=== PATIENT | male | born 1975 | race Caucasian/White ===

== ENCOUNTER 2020-07-19 10:00 | Outpatient (CLI) | payer OTHER ==
--- NOTE | 2020-07-19 12:07 | PET ---
Exam: PET scan with CT attenuation correction HISTORY: Malignant melanoma of the left upper extremity including the shoulder. Secondary malignant n eoplasm of the liver and intrahepatic bile duct. TECHNIQUE: PET scan with CT attenuation correction performed from the skull vertex to the feet follow ing the intravenous administration of 11.5 mCi of [id number]. FINDINGS: Head and neck: There is no abnormal FDG localization in the scalp or neck soft tissue structures. Chest: There is no abnormal FDG localization in the mediastinum, axilla, chest wall soft tissues or l efe parenchyma. CT used for attenuation correction demonstrates a 0.7 cm nodule in the left upper lobe which is not hypermetabolic. The size of the nodule is at the threshold criteria. Currently, the maximum SUV of this nodule is 1.7. There does appear to be scarring and atelectasis in the lung parenchyma. Abdomen and pelvis: There is marked FDG avidity involving the liver. Abnormal FDG localization involv es the caudate lobe, left and right hepatic lobes. Maximum SUV in the caudate lobe is 16.0. Maximum SUV in the left hepatic lobe is 25.3. Maximum SUV in the right hepatic lobe is 23.6. There is a hypermetabolic lymph node in the gastrohepatic ligament, with a maximum SUV of 16.1. Hyper metabolic lymphadenopathy in the periportal region with a maximum SUV of 11.0. There are multiple hypermetabolic mesenteric lymph nodes. There is a left hemiabdomen mesenteric lymph node with a maxim um SUV of 17.3. Additional lymphadenopathy in the mesentery with SUVs between 5.1, 2.2 and 22.10. Osseous structures: There is no abnormal FDG avidity within the bony thorax, bony pelvis or vertebra. However, there is increased FDG avidity which appears to be intrathecal in location and is noted at the level of the S1, S2, S3 vertebral bodies. This FDG avidity is presumed to be intradural. Lumba r puncture for CSF acquisition may be beneficial. Additionally, lumbar spine/sacral MRI may be beneficial. IMPRESSION: Extensive metastases in a patient with known melanoma. There appears to be intrathecal metastases. Findings of the study were conveyed to Dr. Watson via [employer] on 07/19/2020 at 12:04 PM Code CR Transcribed Date/Time: 07/19/2020 1:50 PM
== END 2020-07-19 10:01 | disposition home or self-care (01) ==
LOC: PET 10:00
PROVIDERS: ATTEND Internal Medicine Hematology & Oncology
DX: C43.62 Malignant melanoma of left upper limb, including shoulder (principal); C78.7 Secondary malignant neoplasm of liver and intrahepatic bile duct
CPT/HCPCS: 78816; A9552

== ENCOUNTER 2020-07-31 10:59 | Day surgery (SDC) | payer OTHER ==
[2020-07-31] MEDS ORDERED: Sodium Chloride 0.9% 20 ML ONE (11:07)
[2020-07-31] MEDS ORDERED: Acetaminophen 500 MG TAB PO PRN (11:33)
[2020-07-31] MEDS ORDERED: diphenhydrAMINE 25 MG CAP PO PRN (11:33)
[2020-07-31 14:07] VITALS: BP 102/54; TEMP 98.6
== END 2020-07-31 14:07 | disposition home or self-care (01) ==
LOC: ONC/OP 10:59
PROVIDERS: ATTEND Internal Medicine Hematology & Oncology
PROC: 30233N1 Transfusion of Nonautologous Red Blood Cells into Peripheral Vein, Percutaneous Approach (ICD-10-PCS; principal; 2020-07-31)
DX: D64.9 Anemia, unspecified (principal); D69.6 Thrombocytopenia, unspecified
CPT/HCPCS: 36430; 86850; 86900; 86901; P9016

== ENCOUNTER 2020-08-10 15:31 | Inpatient (IN) | payer OTHER ==
[2020-08-10 16:46] VITALS: BMI 30.9
[2020-08-10] MEDS: Sodium Chloride 0.9% 1,000 ML IV SCH (18:07)
--- NOTE | 2020-08-10 18:33 | CON ---
DATE OF CONSULTATION: 08/10/2020 CONSULTING PHYSICIAN: Bruna Watson MD REASON FOR CONSULT: Possible tumor lysis and acute kidney injury. REASON FOR ADMISSION: Abnormal labs. HISTORY OF PRESENT ILLNESS: This is a 44-year-old male with history of hypertension and hyperlipidemia and melanoma, recently started on chemo, who was sent to the hospital because of worsening labs. The patient had chemo lately and he was found to have elevated creatinine up to 5.56 with a BUN of 79. His uric acid was 18.3, and [facility], but did not get better and he was sent to the hospital. The patient complains of left-sided abdominal pain. Otherwise, he feels okay. No chest pain. No shortness of breath. No nausea or vomiting. He is not making much urine for last few days. PAST MEDICAL HISTORY: Positive for hypertension, hyperlipidemia, melanoma, and GERD. PAST SURGICAL HISTORY: Left axillary lymph node dissection melanoma, left shoulder surgery. HOME MEDICATIONS: Reviewed. ALLERGIES: NO KNOWN DRUG ALLERGIES. SOCIAL HISTORY: History of smoking in the past. No occasional alcohol use. FAMILY HISTORY: Positive for lung cancers. REVIEW OF SYSTEMS: CONSTITUTIONAL: Negative for weight loss or gain, ability to conduct usual activities. SKIN: Negative for rash, itching. EYES: Negative for double vision, pain. ENT/MOUTH: Negative for nose bleeding, neck stiffness, pain, tenderness. CARDIOVASCULAR: Negative for palpitations, dyspnea on exertion, orthopnea. RESPIRATORY: Negative for shortness of breath, wheezing, cough, hemoptysis, fever or night sweats. GASTROINTESTINAL: Negative for poor appetite, abdominal pain, heartburn, nausea, vomiting, constipation, or diarrhea. GENITOURINARY: Negative for urgency, frequency, dysuria, nocturia. MUSCULOSKELETAL: Negative for pain, swelling. NEUROLOGIC/PSYCHIATRIC: Negative for anxiety, depression. ALLERGY/IMMUNOLOGIC: Negative for skin rash, bleeding tendency. PHYSICAL EXAMINATION: GENERAL: Reveals a well-built male, in no apparent distress. VITAL SIGNS: Reviewed. HEENT: Atraumatic, normocephalic. NECK: Supple. CV: S1 and S2 heard. Rate and rhythm are heard. RESPIRATORY: Clear. GASTROINTESTINAL: Abdomen is soft, but distended. MUSCULOSKELETAL: No edema. DERMATOLOGIC: No skin rash. NEUROLOGIC: Alert, awake. PSYCH: Mood and affect normal. LABORATORY DATA: Potassium 5.0, BUN is 79, creatinine is 5.5. ASSESSMENT AND PLAN: 1. Acute kidney injury, most likely secondary to tumor lysis syndrome. Plan is to hydrate him. We will also check a G6PD level and start on rasburicase if available. Agree with renal dose of allopurinol. 2. Hyponatremia. 3. Acidosis. 4. Hypercalcemia. 5. Hyperphosphatemia. 6. Hypoalbuminemia. 7. Possible tumor lysis syndrome. PLAN: To start hydration with Rasburicase and allopurinol and monitor uric acid, potassium, phosphorus, and calcium level and also the LDH level. No acute indication for dialysis, but if no improvement in urine output with worsening of labs is seen, we might have to consider dialysis. The patient is aware of the above plan. We will also check renal ultrasound. Avoid nephrotoxins. Renally dose the medications. We will follow. Thank you for the consult. Job ID: [id number] MTDD
[2020-08-10 20:15] LABS: #Eosinphils 0.1 thou/uL (0.0-0.7); #Lymphocytes 0.5 thou/uL (1.20-3.40); #Monocytes 0.8 thou/uL (0.11-0.59); #Neutrophils 4.7 thou/uL (1.40-6.50); %Basophils 0.2 % (0.0-1.0); %Eosinophils 1.5 % (0.0-10.0); %Lymphocytes 7.4 % (21.0-51.0); %Monocytes 13.9 % (0.0-10.0); %Neutrophils 77.1 % (42.0-75.0); Hemoglobin 7.8 g/dL (14.0-18.0); Mean Corpuscular HGB CONC 32.7 g/dL (32.0-36.0); Mean Corpuscular Hemoglobin 29.7 pg (27.0-31.0); Mean Corpuscular Volume 90.7 fL (78.0-98.0); Mean Platelet Volume 6.9 fL (7.4-10.4); Platelet Count 159 thou/uL (130-400); RBC Distribution Width 15.6 % (11.5-14.5); Red Blood Cell (RBC) Count 2.64 mill/uL (4.70-6.10); White Blood Cell (WBC) Count 6.1 thou/uL (4.8-10.8)
--- NOTE | 2020-08-10 20:33 | ULT ---
Renal sonogram HISTORY: Renal failure. FINDINGS: Right kidney is 10.9 cm length and left is 11.8 cm. Each has a normal appearance without ev idence of mass, stone, or hydronephrosis. Urinary bladder is decompressed. IMPRESSION : No abnormalities are demonstrated.
[2020-08-10] MEDS: Acetaminophen 325 MG TAB PO PRN (21:03)
[2020-08-10] MEDS: Senokot S 8.6-50 MG TAB PO PRN (21:04)
[2020-08-10] MEDS: Heparin 5,000 UNITS/ML VIAL SC SCH (21:04)
--- NOTE | 2020-08-10 21:42 | PDOC.BPN ---
- Brief Progress Note HP dictated
--- NOTE | 2020-08-11 02:20 | HP ---
CHIEF COMPLAINT: Weakness and worsening kidney function. HISTORY OF PRESENT ILLNESS: Mr. Segura is a 44-year-old male with past medical history of melanoma, hypertension, hyperlipidemia, GERD, among others, is being admitted to the hospital as a direct admission from his oncologist's office because of worsening labs, increasing creatinine and tumor lysis syndrome. The patient has been getting aggressive IV hydration lately for increasing creatinine. His blood pressure has been dropping and he got 2 doses of midodrine. Since then, his blood pressure has been in the 110/130s. No syncopal episodes. No dizziness. No fever. No chills. He has some abdominal discomfort. He has been increasing his p.o. fluids and noticed that he has not been voiding as much. Chemistries have been getting worse. Sodium is 132, potassium around 5, BUN is 79, creatinine 5.5 from 3.3, calcium is 7.5, phosphorus is 5.4, uric acid has been increasing more than 17. AST 97, ALT 63, LDH 3242. The patient has tumor lysis syndrome and requiring hospitalization, IV hydration, and possible dialysis. The oncologist started the patient on rasburicase 0.2 mg/kg IV, and advised to continue allopurinol. The patient's oncologist is Dr. Watson. [employer] Supervisor also consulted for a possible hemodialysis and fluid management. The patient is being admitted to the hospital for further management. PAST MEDICAL HISTORY: 1. Hypertension. 2. Hyperlipidemia. 3. GERD. 4. Melanoma. PAST SURGICAL HISTORY: Shoulder surgery. FAMILY HISTORY: A parent had lung cancer. SOCIAL HISTORY: The patient is , has two children. Lives with spouse. Former smoker. He is a social drinker. Denies any illicit drug use. ALLERGIES: NO KNOWN ALLERGIES. REVIEW OF SYSTEMS: Review of 14 systems negative except what is mentioned in history of present illness. PHYSICAL EXAMINATION: GENERAL: The patient is awake, alert, in moderate distress. VITAL SIGNS: Blood pressure is 100/67, pulse is 96, temperature is 97.8, oxygen saturation is 97%. HEAD AND NECK: Normocephalic, atraumatic. NECK: Supple. CHEST: Fair bilateral air entry. HEART: S1, S2. Regular. ABDOMEN: Soft. Mild epigastric tenderness. Bowel sounds present. NEUROLOGIC: Awake, alert. No focal deficits. PSYCHIATRIC: Unable to assess. EXTREMITIES: No clubbing or cyanosis. GENITOURINARY: No suprapubic tenderness. No flank tenderness. LABORATORY DATA: As mentioned above in history of present illness. ASSESSMENT AND PLAN: 1. Tumor lysis syndrome. 2. Acute renal failure. 3. History of hypertension. 4. Hyperlipidemia. 5. GERD. 6. Melanoma. PLAN: 1. Admit. 2. Continue with aggressive IV fluid hydration. 3. Continue with rasburicase. 4. Continue with allopurinol. 5. Monitor electrolytes. 6. [employer] Supervisor consulted for fluid management and possible dialysis. 7. Reconcile home medications. 8. Consult Oncology for followup and further recommendations. 9. DVT prophylaxis as appropriate. 10. Expected length of stay, 2 midnights or more. Job ID: [id number]
[2020-08-11] MEDS ORDERED: Rasburicase 3 MG in Sodium Chloride 0.9% 50 ML IVPB SCH (03:00)
[2020-08-11 03:34] LABS: SARS-CoV-2 MS2 Positive; SARS-CoV-2 N Gene Negative; SARS-CoV-2 S Gene Negative; SARS-CoV-2 by NAA Not Detected (NotDetected); SARS-CoV-2 orf1ab Negative
[2020-08-11 05:40] LABS: Anion Gap 21 mmol/L (10-20); BUN (Urea Nitrogen) 80 mg/dL (8.9-20.6); Calc. Creatinine Clearance 25 mL/min (70-130); Calcium 7.3 mg/dL (7.8-10.44); Carbon Dioxide 15 mmol/L (22-29); Chloride 102 mmol/L (98-107); Glucose 86 mg/dL (70-105); Phosphorus 5.5 mg/dL (2.3-4.7); Potassium 4.6 mmol/L (3.5-5.1); Sodium 133 mmol/L (136-145); Uric Acid 14.4 mg/dL (3.5-7.2)
[2020-08-11] MEDS: Acetaminophen 325 MG TAB PO PRN ×2 (06:04→20:47)
[2020-08-11] MEDS: Sodium Chloride 0.9% 1,000 ML IV SCH ×2 (06:04→12:21)
[2020-08-11] MEDS ORDERED: Zolpidem Tartrate 5 MG TAB PO PRN (08:03)
[2020-08-11] MEDS ORDERED: Enoxaparin Sodium 40 MG/0.4 ML SYRINGE SC SCH (09:00)
[2020-08-11] MEDS ORDERED: Prevnar 13-Val Conj/PF 0.5 ML SYRINGE IM ONE (09:00)
[2020-08-11] MEDS: Allopurinol 100 MG TAB PO SCH (09:10)
[2020-08-11] MEDS: Heparin 5,000 UNITS/ML VIAL SC SCH ×3 (09:10→20:48)
[2020-08-11] MEDS ORDERED: Sodium Bicarbonate 150 MEQ in Dextrose 5% in Water 1,000 ML IV SCH (10:00)
--- NOTE | 2020-08-11 13:22 | CON ---
DATE OF CONSULTATION: REASON FOR CONSULTATION: Melanoma, tumor lysis syndrome. HISTORY OF PRESENT ILLNESS: A 44-year-old male with metastatic melanoma has been admitted to the hospital for treatment of tumor lysis syndrome. The patient was diagnosed with melanoma on his left arm in 2012, which was resected and was stage T3N0. The patient was diagnosed with recurrent melanoma in his liver last month and started treatment with Keytruda on July 20, 2020. At that time, his creatinine was 1.57 and uric acid 8.7. He came in to clinic August 08, for blood work and was found to have a creatinine of 3.48 and a uric acid of 17.5 and LDH 4369, up from 2547. Returned to clinic yesterday for Keytruda, which was held and he was given 3 L of IV fluids and his creatinine was found to be 5.56 with a uric acid of 18.3. Potassium was 5.0 and phosphorus 5.4. He was then directly admitted to the hospital. The patient complains of abdominal discomfort in the right and left abdomen. His right abdominal pain from his liver metastasis is much improved on the current pain regimen and states left abdominal pain just started in the last few days, but is also improved. He only urinated once yesterday after IV hydration, but started urinating more frequently overnight and this morning. He has received 1 dose of rasburicase thus far with improvement in his uric acid. The patient also complains of nausea, vomiting, and vomited once this morning. Denies any other complaints. REVIEW OF SYSTEMS: Ten-point review of systems is negative except as per HPI. PAST MEDICAL HISTORY: 1. Melanoma. 2. Hypertension. 3. Hyperlipidemia. 4. GERD. PAST SURGICAL HISTORY: 1. Shoulder surgery. 2. Melanoma removal. FAMILY HISTORY: Lung cancer. SOCIAL HISTORY: with 2 kids. Former smoker and drinker, but quit when he was diagnosed with liver metastasis. ALLERGIES: NO KNOWN DRUG ALLERGIES. VITAL SIGNS: Temperature 97.8, pulse 87, respirations 19, saturating 98% on room air, blood pressure 103/53. PHYSICAL EXAMINATION: GENERAL APPEARANCE: The patient is sitting up in a chair, in no acute distress. HEENT: Normocephalic and atraumatic. NECK: Supple. RESPIRATIONS: Clear to auscultation bilaterally. CARDIOVASCULAR: S1, S2. Regular rate and rhythm. ABDOMEN: Soft and obese with mild tenderness in the right upper quadrant without any guarding. EXTREMITIES: No edema. NEUROLOGIC: Cranial nerves 2 through 12 are grossly intact. PSYCHIATRIC: Awake, alert, and oriented x3. LABORATORY DATA: White blood cell 6.1, hemoglobin 7.8, platelets 159. Sodium 133, BUN 80, creatinine 5.35, uric acid 14.4, calcium 7.3, phosphorus 5.5. ASSESSMENT AND PLAN: A 44-year-old male with metastatic melanoma to liver, presenting with tumor lysis syndrome and kidney failure. I expect his tumor lysis is mostly spontaneous and not purely treatment related as he only had one dose of Keytruda 3 weeks ago, which does not cause rapid response. He has began urinating again after aggressive hydration and uric acid has slightly improved on [address] Loomis is planning 1 more dose and has also started him on allopurinol, which I advised him to continue after discharge as well. I recommend continuing with one more dose of rasburicase and aggressive IV hydration. We will monitor tumor lysis labs for improvement. The patient can likely resume Keytruda after discharge from the hospital if his kidney function does recover. We will follow along closely with you. Job ID: [id number] [facility]
--- NOTE | 2020-08-11 14:42 | PDOC.HOSPP ---
- Subjective Encounter Date: 08/11/20 Subjective: Patient is doing okay. He has no new complaints today. He reports that he has started voiding again. - Objective Vital Signs & Weight: Vital Signs (12 hours) Temp Pulse Resp BP Pulse Ox 08/11/20 11:25 97.7 F 82 19 95/53 L 98 08/11/20 09:00 97.8 F 87 19 103/53 L 98 08/11/20 04:00 98.2 F 83 16 98/54 L 98 Weight Weight 221 lb 14.4 oz Result Diagrams: 08/10/20 20:03 08/11/20 04:26 Hospitalist ROS - Medication Medications: Active Medications Generic Name Dose Route Start Last Admin Trade Name Freq PRN Reason Stop Dose Admin Acetaminophen 650 mg 08/10/20 18:53 08/11/20 06:04 Acetaminophen 325 Mg Tab PO 650 mg Q6H PRN Administration Headache/Fever/Mild Pain (1-3) Allopurinol 200 mg 08/11/20 09:00 08/11/20 09:10 Allopurinol 100 Mg Tab PO 200 mg DAILY TIEN Administration Heparin Sodium (Porcine) 5,000 units 08/10/20 21:00 08/11/20 09:10 Heparin 5,000 Units/Ml Vial SC 5,000 units TID TIEN Administration Rasburicase 3 mg/ Sodium 50 mls @ 100 mls/hr 08/11/20 03:00 08/11/20 03:31 Chloride IVPB 08/12/20 03:29 50 mls 0300 TIEN Administration Sodium Bicarbonate 150 meq/ 1,150 mls @ 100 mls/hr 08/11/20 10:00 08/11/20 12:19 Dextrose/Water IV 08/11/20 21:29 1,150 mls ONE TIEN Administration Pantoprazole Sodium 40 mg 08/11/20 09:00 08/11/20 09:09 Pantoprazole 40 Mg Tab PO 40 mg DAILY TIEN Administration Senna/Docusate Sodium 2 tab 08/10/20 18:53 08/10/20 21:04 Senokot S 8.6-50 Mg Tab PO 2 tab BIDPRN PRN Administration Constipation - Exam General Appearance: NAD, awake alert Heart: RRR, no murmur, no gallops, no rubs, normal peripheral pulses Respiratory: CTAB, no wheezes, no rales, no ronchi, normal chest expansion, no tachypnea, normal percussion Gastrointestinal: soft, non-tender, non-distended, normal bowel sounds, no palpable masses, no hepatomegaly, no splenomegaly, no bruit Extremities: no cyanosis, no clubbing, no edema Skin: normal turgor Neurological: no focal deficits Musculoskeletal: normal tone, normal strength Psychiatric: normal affect, normal behavior, A&O x 3 Hosp A/P (1) Tumor lysis syndrome Code(s): E88.3 - TUMOR LYSIS SYNDROME Status: Acute (2) Acute renal failure Status: Acute (3) Melanoma Code(s): C43.9 - MALIGNANT MELANOMA OF SKIN, UNSPECIFIED Status: Acute (4) Liver metastases Code(s): C78.7 - SECONDARY MALIG NEOPLASM OF LIVER AND INTRAHEPATIC BILE DUCT Status: Acute (5) Lung metastases Code(s): C78.00 - SECONDARY MALIGNANT NEOPLASM OF UNSPECIFIED LUNG Status: Acute (6) Portal vein thrombosis Code(s): I81 - PORTAL VEIN THROMBOSIS Status: Acute (7) GERD (gastroesophageal reflux disease) Code(s): K21.9 - GASTRO-ESOPHAGEAL REFLUX DISEASE WITHOUT ESOPHAGITIS Status: Chronic (8) Hyperlipidemia Code(s): E78.5 - HYPERLIPIDEMIA, UNSPECIFIED Status: Chronic - Plan Patient is a 44-year-old male known to me from prior admission at the [facility]. At that time the patient had abdominal pain with imaging revealing liver and lung masses. Biopsy confirmed melanoma. He has subsequently been following with oncology. He is started on chemotherapy. He had follow-up labs which showed worsening renal function and tumor lysis syndrome. Contemporaneous with this the patient became somewhat oliguric. He has been admitted to the hospital for hydration and treatment of tumor lysis syndrome. Tumor lysis syndrome: Patient has received Elitek and allopurinol. He is also received aggressive hydration. Numbers are slightly better. Oncology and nephrology following. Acute renal failure: Secondary to tumor lysis syndrome. Continue aggressive hydration. Nephrology following. No indication for dialysis yet. Patient was oliguric but that appears to be resolving. Melanoma: Metastatic to liver and lungs. Original tumor was in his left shoulder area. Oncology following. He will likely resume Keytruda on discharge if his renal function recovers. Hyperlipidemia: Continue statin. Portal vein thrombosis: Found on imaging at the previous admission. Somewhat of an equivocal finding. Chronic at this point. GERD: Pantoprazole DVT prophylaxis: Heparin
--- NOTE | 2020-08-11 17:01 | PRG ---
DATE OF SERVICE: 08/11/2020 SUBJECTIVE: Patient was seen and examined at bedside and overnight events noted. Patient denies any shortness of breath or chest pain or palpitation. No history of nausea or vomiting or diarrhea or fever or chills or cramps. OBJECTIVE: GENERAL: This is a well-built male, in no apparent distress. VITAL SIGNS: Temperature 97.9. Heart rate 82. Respiratory rate 16. Blood pressure 96/54. HEENT: Atraumatic, normocephalic. Oral mucosa is moist. NECK: Supple. CARDIOVASCULAR: S1, S2 heard. Rate and rhythm regular. RESPIRATORY: Clear to auscultation. GASTROINTESTINAL: Abdomen is soft. MUSCULOSKELETAL: No tenderness. No edema. DERMATOLOGIC: No skin rash. NEUROLOGIC: Alert and awake and oriented x3. No focal neurologic deficits. Moving all the extremities. PSYCHIATRIC: Mood and affect normal. LABORATORY DATA: Potassium 4.6, BUN is 80, and creatinine is 5.34. ASSESSMENT AND PLAN: 1. Acute kidney injury. This is most likely secondary to tumor lysis syndrome. This seems to be slightly better. He got a dose of rasburicase and also on allopurinol. Plan is to recheck labs in the morning and we will give second dose of rasburicase. Per hospital policy, he can only have 3 mg dose and only two doses during hospitalization. 2. Hyponatremia. 3. Acidosis. 4. Hypercalcemia. 5. Hyperphosphatemia. 6. Hypoalbuminemia. 7. Tumor lysis syndrome. 8. History of melanoma, on chemotherapy. Plan is to monitor labs and decide on rasburicase. The patient reports improved urine output, which is encouraging. Job ID: [id number]
[2020-08-11] MEDS: HYDROcodone/Acetaminophen 5/325 mg Tablet PO PRN (17:02)
[2020-08-11] MEDS: Atorvastatin Calcium 10 MG TAB PO SCH (20:47)
[2020-08-12] MEDS: HYDROcodone/Acetaminophen 5/325 mg Tablet PO PRN ×3 (00:15→20:26)
[2020-08-12] MEDS ORDERED: Calcium Carbonate 500 MG ChewTAB PO PRN (01:26)
[2020-08-12] MEDS ORDERED: Calcium Carbonate 500 MG ChewTAB PO SCH (01:30)
[2020-08-12] MEDS ORDERED: Simethicone Chewable 80 MG TAB PO SCH ×3 (01:30→02:45)
[2020-08-12] MEDS ORDERED: Rasburicase 3 MG in Sodium Chloride 0.9% 50 ML IVPB SCH (03:00)
[2020-08-12 04:53] LABS: Anion Gap 17 mmol/L (10-20); BUN (Urea Nitrogen) 68 mg/dL (8.9-20.6); Calc. Creatinine Clearance 30 mL/min (70-130); Calcium 7.1 mg/dL (7.8-10.44); Carbon Dioxide 20 mmol/L (22-29); Chloride 102 mmol/L (98-107); Glucose 90 mg/dL (70-105); Phosphorus 3.9 mg/dL (2.3-4.7); Potassium 4.1 mmol/L (3.5-5.1); Sodium 135 mmol/L (136-145)
[2020-08-12] MEDS: Allopurinol 100 MG TAB PO SCH (08:43)
[2020-08-12] MEDS: Heparin 5,000 UNITS/ML VIAL SC SCH ×2 (08:43→20:27)
[2020-08-12 10:15] LABS: #Eosinphils 0.1 thou/uL (0.0-0.7); #Lymphocytes 0.4 thou/uL (1.20-3.40); #Monocytes 0.5 thou/uL (0.11-0.59); #Neutrophils 2.9 thou/uL (1.40-6.50); %Basophils 0.9 % (0.0-1.0); %Lymphocytes 9.1 % (21.0-51.0); %Monocytes 13.5 % (0.0-10.0); %Neutrophils 74.6 % (42.0-75.0); Hemoglobin 6.8 g/dL (14.0-18.0); Mean Corpuscular HGB CONC 32.9 g/dL (32.0-36.0); Mean Corpuscular Hemoglobin 29.8 pg (27.0-31.0); Mean Corpuscular Volume 90.5 fL (78.0-98.0); Mean Platelet Volume 7.1 fL (7.4-10.4); Platelet Count 184 thou/uL (130-400); RBC Distribution Width 15.8 % (11.5-14.5); Red Blood Cell (RBC) Count 2.27 mill/uL (4.70-6.10); White Blood Cell (WBC) Count 3.9 thou/uL (4.8-10.8)
[2020-08-12] MEDS ORDERED: Sodium Chloride 0.9% 1,000 ML IV SCH (11:00)
--- NOTE | 2020-08-12 11:36 | PDOC.MOPN ---
Interval History: Pt feeling more tired today. Still with abdominal pain, c/o constipation and gas. New ankle pain. Still urinating well. - Vital Signs Vital Signs: Vital Signs (12 hours) Temp Pulse Resp BP BP Pulse Ox 08/12/20 10:42 98 F 78 30 H 104/55 L 95 08/12/20 08:00 96 08/12/20 07:38 98.3 F 93 20 115/57 L 96 08/12/20 03:19 98.6 F 82 17 92/54 L 95 Weight Weight 22 lb 6.4 oz - Physical Exam General: Alert, Oriented x3, Cooperative HEENT: EOMI Lungs: Normal air movement Cardiovascular: Regular rate Neurological: Cranial nerves 3-12 NL - Labs Result Diagrams: 08/12/20 09:43 08/12/20 04:13 Lab results: Laboratory Results - last 24 hr 08/12/20 09:43: WBC 3.9 L, RBC 2.27 L, Hgb 6.8 L, Hct 20.6 L, MCV 90.5, MCH 29.8, MCHC 32.9, RDW 15.8 H, Plt Count 184, MPV 7.1 L, Neutrophils % 74.6, Lymphocytes % 9.1 L, Monocytes % 13.5 H, Eosinophils % 2.0, Basophils % 0.9, Neutrophils # 2.9, Lymphocytes # 0.4 L, Monocytes # 0.5, Eosinophils # 0.1, Basophils # 0.0 08/12/20 04:13: Sodium 135 L, Potassium 4.1, Chloride 102, Carbon Dioxide 20 L, Anion Gap 17, BUN 68 H, Creatinine 4.33 H, Estimated GFR (MDRD) 15, Glucose 90, Uric Acid 6.0, Calcium 7.1 L, Phosphorus 3.9 A/P - Problem (1) Melanoma Current Visit: Yes Code(s): C43.9 - MALIGNANT MELANOMA OF SKIN, UNSPECIFIED Status: Acute (2) Tumor lysis syndrome Current Visit: Yes Code(s): E88.3 - TUMOR LYSIS SYNDROME Status: Acute - Plan Plan: Uric acid now normal, Creatinine improving slowly Cont IVF Transfuse 1 unit PRBC today Laxative prn
[2020-08-12] MEDS: Sodium Chloride 0.9% 1,000 ML IV SCH ×2 (11:38→23:43)
[2020-08-12] MEDS: Senokot S 8.6-50 MG TAB PO PRN (11:42)
[2020-08-12] MEDS ORDERED: diphenhydrAMINE 12.5 MG/5 ML UDCUP PO SCH (11:45)
[2020-08-12] MEDS ORDERED: Acetaminophen 500 MG TAB PO SCH (11:45)
[2020-08-12] MEDS ORDERED: Polyethylene Glycol 3350 17 GM Packet PO PRN (12:14)
[2020-08-12] MEDS: Morphine 2 MG/ML VIAL SLOW IVP PRN ×2 (13:10→23:34)
[2020-08-12] MEDS: Ondansetron PF 4 MG/2 ML Vial IVP PRN (13:11)
--- NOTE | 2020-08-12 14:37 | PDOC.HOSPP ---
- Subjective Encounter Date: 08/12/20 Subjective: Did not sleep as well last night. Voiding a little bit less today but still voiding. Has some left upper quadrant abdominal pain. After my visit nurse reported he was having some nausea as well. - Objective Vital Signs & Weight: Vital Signs (12 hours) Temp Pulse Resp BP BP Pulse Ox 08/12/20 10:42 98 F 78 30 H 104/55 L 95 08/12/20 08:00 96 08/12/20 07:38 98.3 F 93 20 115/57 L 96 08/12/20 03:19 98.6 F 82 17 92/54 L 95 Weight Weight 22 lb 6.4 oz I&O: 08/11/20 08/12/20 08/13/20 06:59 06:59 06:59 Intake Total 3210 Balance 3210 Result Diagrams: 08/12/20 09:43 08/12/20 04:13 Hospitalist ROS - Medication Medications: Active Medications Generic Name Dose Route Start Last Admin Trade Name Freq PRN Reason Stop Dose Admin Acetaminophen 650 mg 08/10/20 18:53 08/11/20 20:47 Acetaminophen 325 Mg Tab PO 650 mg Q6H PRN Administration Headache/Fever/Mild Pain (1-3) Acetaminophen 1,000 mg 08/12/20 11:45 08/12/20 13:49 Acetaminophen 500 Mg Tab PO 08/12/20 23:00 1,000 mg NOW TIEN Administration Hydrocodone Bitart/Acetaminophen 1 tab 08/11/20 12:00 08/12/20 08:56 Hydrocodone/Acetaminophen 5/325 Mg Tablet PO 1 tab Q6H PRN Administration Moderate to Severe Pain (6-10) Allopurinol 200 mg 08/11/20 09:00 08/12/20 08:43 Allopurinol 100 Mg Tab PO 200 mg DAILY TIEN Administration Atorvastatin Calcium 10 mg 08/11/20 21:00 08/11/20 20:47 Atorvastatin Calcium 10 Mg Tab PO 10 mg HS TIEN Administration Diphenhydramine HCl 50 mg 08/12/20 11:45 08/12/20 13:49 Diphenhydramine 12.5 Mg/5 Ml Udcup PO 08/12/20 23:00 50 mg NOW TIEN Administration Sodium Chloride 1,000 mls @ 100 mls/hr 08/12/20 11:34 08/12/20 11:38 Normal Saline 0.9% IV 1,000 mls .Q10H TIEN Administration Morphine Sulfate 2 mg 08/12/20 12:14 08/12/20 13:10 Morphine 2 Mg/Ml Vial SLOW IVP 2 mg Q4H PRN Administration Moderate to Severe Pain (6-10) Ondansetron HCl 4 mg 08/12/20 12:39 08/12/20 13:11 Ondansetron Pf 4 Mg/2 Ml Vial IVP 4 mg Q6H PRN Administration Nausea/Vomiting Pantoprazole Sodium 40 mg 08/11/20 09:00 08/12/20 08:43 Pantoprazole 40 Mg Tab PO 40 mg DAILY TIEN Administration Polyethylene Glycol 17 gm 08/12/20 12:14 08/12/20 13:10 Polyethylene Glycol 3350 17 Gm Packet PO 17 gm DAILYPRN PRN Administration Constipation Senna/Docusate Sodium 2 tab 08/10/20 18:53 08/12/20 11:42 Senokot S 8.6-50 Mg Tab PO 2 tab BIDPRN PRN Administration Constipation - Exam General Appearance: NAD, awake alert General - other findings: Appears slightly fatigued. Heart: RRR, no murmur, no gallops, no rubs, normal peripheral pulses Respiratory: CTAB, no wheezes, no rales, no ronchi, normal chest expansion, no tachypnea, normal percussion Gastrointestinal: soft, non-tender, non-distended, normal bowel sounds, no palpable masses, no hepatomegaly, no splenomegaly, no bruit Extremities: no cyanosis, no clubbing, no edema Skin: normal turgor Neurological: no focal deficits Musculoskeletal: normal tone, normal strength, no muscle wasting Psychiatric: normal affect, normal behavior, A&O x 3 Hosp A/P (1) Tumor lysis syndrome Code(s): E88.3 - TUMOR LYSIS SYNDROME Status: Acute (2) Acute renal failure Status: Acute (3) Melanoma Code(s): C43.9 - MALIGNANT MELANOMA OF SKIN, UNSPECIFIED Status: Acute (4) Liver metastases Code(s): C78.7 - SECONDARY MALIG NEOPLASM OF LIVER AND INTRAHEPATIC BILE DUCT Status: Acute (5) Lung metastases Code(s): C78.00 - SECONDARY MALIGNANT NEOPLASM OF UNSPECIFIED LUNG Status: A cute (6) Portal vein thrombosis Code(s): I81 - PORTAL VEIN THROMBOSIS Status: Acute (7) GERD (gastroesophageal reflux disease) Code(s): K21.9 - GASTRO-ESOPHAGEAL REFLUX DISEASE WITHOUT ESOPHAGITIS Status: Chronic (8) Hyperlipidemia Code(s): E78.5 - HYPERLIPIDEMIA, UNSPECIFIED Status: Chronic (9) Abdominal pain Code(s): R10.9 - UNSPECIFIED ABDOMINAL PAIN Status: Acute (10) Nausea & vomiting Code(s): R11.2 - NAUSEA WITH VOMITING, UNSPECIFIED Status: Acute - Plan Patient is a 44-year-old male known to me from prior admission at the [facility]. At that time the patient had abdominal pain with imaging revealing liver and lung masses. Biopsy confirmed melanoma. He has subsequently been following with oncology. He is started on chemotherapy. He had follow-up labs which showed worsening renal function and tumor lysis syndrome. Contemporaneous with this the patient became somewhat oliguric. He has been admitted to the hospital for hydration and treatment of tumor lysis syndrome. Tumor lysis syndrome: Patient has received Elitek and allopurinol. He is also received aggressive hydration. Numbers are slightly better. Oncology and nephrology following. Acute renal failure: Secondary to tumor lysis syndrome. Continue aggressive hydration. Nephrology following. No indication for dialysis yet. Patient was oliguric but that appears to be resolving. Continue aggressive IV fluids. Ultrasound on admission showed no evidence of stones or hydronephrosis. Melanoma: Metastatic to liver and intra-abdominal lymph nodes. Original tumor was in his left shoulder area. Oncology following. He will likely resume Keytruda on discharge if his renal function recovers. Abdominal pain, nausea vomiting: CT scan of the abdomen and pelvis without contrast. Morphine as needed. Zofran as needed. Hyperlipidemia: Continue statin. Portal vein thrombosis: Found on imaging at the previous admission. Somewhat of an equivocal finding. Chronic at this point. GERD: Pantoprazole DVT prophylaxis: Heparin
--- NOTE | 2020-08-12 16:18 | PRG ---
DATE OF SERVICE: 08/12/2020 SUBJECTIVE: Patient was seen and examined at bedside and overnight events noted. Patient denies any shortness of breath or chest pain or palpitation. No history of nausea or vomiting or diarrhea or fever or chills or cramps. OBJECTIVE: General: This is a well-built male, in no apparent distress. Vital Signs: Temperature 97.0. Heart Rate 78. Respiratory rate 18. Blood pressure 115/57. HEENT: Atraumatic, normocephalic. Oral mucosa is moist. Neck: Supple. Cardiovascular: S1, S2 heard. Rate and rhythm regular. Respiratory: Clear to auscultation. Gastrointestinal: Abdomen is soft. Musculoskeletal: No tenderness. No edema. Dermatologic: No skin rash. Neurologic: Alert and awake and oriented x3. No focal neurologic deficits. Moving all the extremities. Psychiatric: Mood and affect normal. LABORATORY DATA: Potassium 4.1, BUN is 68, creatinine is 4.3, uric acid is 6.0, calcium 7.1, phosphorus 3.9. ASSESSMENT AND PLAN: 1. Acute kidney injury on chronic kidney disease stage 3. Renal function with improvement in creatinine down to 4.3. Uric acid level is also better. 2. Tumor lysis syndrome at one dose of rasburicase and uric acid level is down to 6. We will hold the next dose. 3. Hypoalbuminemia. 4. Hyperphosphatemia. 5. Hypocalcemia. 6. History of melanoma. The patient still complaining of abdominal pain. Would recommend CT scan of the abdomen without contrast with Dr. Suarez. Otherwise, continue IV fluids and monitor renal function. Job ID: [id number]
--- NOTE | 2020-08-12 17:59 | CT ---
CT abdomen and pelvis noncontrast HISTORY: Abdominal pain. Nausea vomiting. Renal failure. Melanoma with metastases. COMPARISON: 07/01/2020. FINDINGS: IV contrast was withheld due to renal failure. Oral contrast was administered. No evidence of bowel obstruction. The lung bases are clear. Left liver lobe is expanded with an ill-defined low density mass that exten ds into the right liver lobe. Margins are not well delineated on the noncontrast study, although there is favored to be significant increase in size since the previous exam. Hyperdensity is now seen at the gallbladder lumen and may represent biliary sludge or a stone. Stranding is present within the fat around the left liver lobe and adjacent to the right colon. Exten sive widespread adenopathy throughout the abdomen, especially at the central mesentery, has progressed since the prior study. The largest nodes are now at the peripancreatic level 6.0 cm and th e right central mesentery 3.8 cm. Urinary bladder is unremarkable. IMPRESSION : No evidence of bowel obstruction. Significant interval enlargement of metastatic intra-abdominal lymph nodes and liver metastases. Stra nding within the intra-abdominal fat favored to represent carcinomatosis. Evidence of worsening metastatic disease.
[2020-08-12] MEDS: Atorvastatin Calcium 10 MG TAB PO SCH (20:27)
[2020-08-13 04:49] LABS: #Eosinphils 0.1 thou/uL (0.0-0.7); #Lymphocytes 0.4 thou/uL (1.20-3.40); #Monocytes 0.5 thou/uL (0.11-0.59); #Neutrophils 3.9 thou/uL (1.40-6.50); %Basophils 0.2 % (0.0-1.0); %Eosinophils 1.1 % (0.0-10.0); %Monocytes 10.7 % (0.0-10.0); Hemoglobin 8.1 g/dL (14.0-18.0); Mean Corpuscular Hemoglobin 28.7 pg (27.0-31.0); Mean Corpuscular Volume 89.7 fL (78.0-98.0); Mean Platelet Volume 6.4 fL (7.4-10.4); Platelet Count 188 thou/uL (130-400); RBC Distribution Width 15.4 % (11.5-14.5); Red Blood Cell (RBC) Count 2.81 mill/uL (4.70-6.10); White Blood Cell (WBC) Count 4.8 thou/uL (4.8-10.8)
[2020-08-13 04:57] LABS: Reticulocyte Count 1.5 % (0.5-1.5)
[2020-08-13 05:14] LABS: ALT (SGPT) 40 U/L (8-55); AST (SGOT) 68 U/L (5-34); Albumin 2.5 g/dL (3.5-5.0); Alkaline Phosphatase 428 U/L (40-110); Anion Gap 16 mmol/L (10-20); BUN (Urea Nitrogen) 45 mg/dL (8.9-20.6); Bilirubin, Total 0.7 mg/dL (0.2-1.2); Calc. Creatinine Clearance 5 mL/min (70-130); Calcium 7.4 mg/dL (7.8-10.44); Carbon Dioxide 21 mmol/L (22-29); Chloride 104 mmol/L (98-107); Globulin 2.6 g/dL (2.4-3.5); Glucose 92 mg/dL (70-105); Phosphorus 2.7 mg/dL (2.3-4.7); Protein, Total 5.1 g/dL (6.0-8.3); Sodium 137 mmol/L (136-145); Uric Acid 3.4 mg/dL (3.5-7.2)
[2020-08-13] MEDS: Ondansetron PF 4 MG/2 ML Vial IVP PRN ×2 (05:45→11:39)
--- NOTE | 2020-08-13 08:32 | PRG ---
DATE OF SERVICE: 08/13/2020 SUBJECTIVE: A 44-year-old male, being seen for acute kidney injury. The patient denied nausea, vomiting, or chest pain. PHYSICAL EXAMINATION: General: The patient is awake and alert. Vital Signs: Afebrile, pulse 75, breathing at 16, blood pressure 110/56. HEENT: Head normocephalic and atraumatic. Eyes intact, no ulcers. Nose intact, no ulcers. Ears intact, no ulcers. Neck: Supple. No JVD. Chest: Symmetrical and clear. Cardiovascular: Shows S1 and S2, no rub, no murmur. Gastrointestinal: Abdomen is soft, bowel sounds positive. Extremities: Show no edema or ulcers. Skin: Shows no rash or petechiae. Musculoskeletal: Shows no joint swelling or stiffness. Genitourinary: Shows no Hand or CVA tenderness. Neurologic: Motor intact. Cranial nerves intact. LABORATORY DATA: Labs show hemoglobin 8.1, creatinine 2.5. ASSESSMENT AND PLAN: 1. Acute kidney injury, improved. 2. Hypertension, stable. 3. Anemia, stable. 4. Chronic kidney disease stage 4, stable. No indication for dialysis. Continue hydration. Job ID: [id number]
[2020-08-13] MEDS: Allopurinol 100 MG TAB PO SCH (08:40)
[2020-08-13] MEDS: Heparin 5,000 UNITS/ML VIAL SC SCH ×2 (08:40→19:38)
[2020-08-13] MEDS: Sodium Chloride 0.9% 1,000 ML IV SCH ×2 (08:42→22:53)
[2020-08-13] MEDS: Morphine 2 MG/ML VIAL SLOW IVP PRN ×2 (09:12→15:22)
[2020-08-13] MEDS: Morphine 4 MG/ML VIAL SLOW IVP PRN ×2 (11:38→19:43)
[2020-08-13 12:12] LABS: G-6-PD,Quant 259 (127-427)
--- NOTE | 2020-08-13 15:02 | PDOC.MOPN ---
Interval History: c/o abdominal pain, occ nausea - Vital Signs Vital Signs: Vital Signs (12 hours) Temp Pulse Resp BP BP Pulse Ox 08/13/20 11:33 98.5 F 87 20 118/60 97 08/13/20 08:33 98.6 F 97 21 H 112/63 97 08/13/20 03:49 98.6 F 85 110/56 L 95 Weight Weight 222 lb 6.4 oz - Physical Exam General: Alert, Mild distress Lungs: Clear to auscultation Cardiovascular: Regular rate Abdomen: Normal bowel sounds Neurological: Normal speech Psych/Mental Status: Mental status NL - Labs Result Diagrams: 08/13/20 04:36 08/13/20 04:36 Lab results: Laboratory Results - last 24 hr 08/13/20 04:36: Retic Count 1.5, Immature Retic Fraction 0.477 H 08/13/20 04:36: WBC 4.8, RBC 2.81 L, Hgb 8.1 L, Hct 25.2 L, MCV 89.7, MCH 28.7, MCHC 32.0, RDW 15.4 H, Plt Count 188, MPV 6.4 L, Neutrophils % 80.0 H, Lymphocytes % 8.0 L, Monocytes % 10.7 H, Eosinophils % 1.1, Basophils % 0.2, Neutrophils # 3.9, Lymphocytes # 0.4 L, Monocytes # 0.5, Eosinophils # 0.1, Basophils # 0.0 08/13/20 04:36: Lactate Dehydrogenase 1712 H 08/13/20 04:36: Sodium 137, Potassium 4.0, Chloride 104, Carbon Dioxide 21 L, Anion Gap 16, BUN 45 H, Creatinine 2.58 H, Estimated GFR (MDRD) 27, Glucose 92, Uric Acid 3.4 L, Calcium 7.4 L, Phosphorus 2.7, Total Bilirubin 0.7, AST 68 H, ALT 40, Alkaline Phosphatase 428 H, Serum Total Protein 5.1 L, Albumin 2.5 L, Globulin 2.6, Albumin/Globulin Ratio 1.0 L 08/12/20 12:05: Crossmatch See Detail 08/10/20 17:31: G6PD 259, RBC G6PD 2.70 L Status: lab reviewed by me A/P - Problem (1) Abdominal pain Current Visit: Yes Code(s): R10.9 - UNSPECIFIED ABDOMINAL PAIN Status: Acute (2) Melanoma Current Visit: Yes Code(s): C43.9 - MALIGNANT MELANOMA OF SKIN, UNSPECIFIED Status: Acute (3) Tumor lysis syndrome Current Visit: Yes Code(s): E88.3 - TUMOR LYSIS SYNDROME Status: Acute - Plan Plan: CT scan showed worsening metastatic disease TLS - Uric acid normal, Creatinine improving slowly Cont IVF Resume home med MS Contin 30 mg BID Laxative prn antiemetic prn
--- NOTE | 2020-08-13 16:24 | PDOC.HOSPP ---
- Subjective Encounter Date: 08/13/20 Subjective: Patient was reporting lower abdominal pain. Says he feels like he needs to vomit acid at times. He seems to be working hard to accomplish that feeling that it will make him better somehow. - Objective Vital Signs & Weight: Vital Signs (12 hours) Temp Pulse Resp BP BP Pulse Ox 08/13/20 11:33 98.5 F 87 20 118/60 97 08/13/20 08:33 98.6 F 97 21 H 112/63 97 Weight Weight 222 lb 6.4 oz I&O: 08/12/20 08/13/20 08/14/20 06:59 06:59 06:59 Intake Total 3210 4885 Output Total 3 Balance 3210 0380 Result Diagrams: 08/13/20 04:36 08/13/20 04:36 Hospitalist ROS - Medication Medications: Active Medications Generic Name Dose Route Start Last Admin Trade Name Freq PRN Reason Stop Dose Admin Acetaminophen 650 mg 08/10/20 18:53 08/11/20 20:47 Acetaminophen 325 Mg Tab PO 650 mg Q6H PRN Administration Headache/Fever/Mild Pain (1-3) Hydrocodone Bitart/Acetaminophen 1 tab 08/11/20 12:00 08/12/20 20:26 Hydrocodone/Acetaminophen 5/325 Mg Tablet PO 1 tab Q6H PRN Administration Moderate to Severe Pain (6-10) Allopurinol 200 mg 08/11/20 09:00 08/13/20 08:40 Allopurinol 100 Mg Tab PO 200 mg DAILY TIEN Administration Atorvastatin Calcium 10 mg 08/11/20 21:00 08/12/20 20:27 Atorvastatin Calcium 10 Mg Tab PO 10 mg HS TIEN Administration Heparin Sodium (Porcine) 5,000 units 08/12/20 21:00 08/13/20 08:40 Heparin 5,000 Units/Ml Vial SC 5,000 units BID TIEN Administration Sodium Chloride 1,000 mls @ 100 mls/hr 08/12/20 11:34 08/13/20 08:42 Normal Saline 0.9% IV 1,000 mls .Q10H TIEN Administration Morphine Sulfate 4 mg 08/13/20 08:54 08/13/20 11:38 Morphine 4 Mg/Ml Vial SLOW IVP 4 mg Q4H PRN Administration Moderate to Severe Pain (6-10) Morphine Sulfate 2 mg 08/13/20 08:54 08/13/20 15:22 Morphine 2 Mg/Ml Vial SLOW IVP 2 mg Q4H PRN Administration Mild-Moderate Pain (1-5) Ondansetron HCl 4 mg 08/12/20 12:39 08/13/20 11:39 Ondansetron Pf 4 Mg/2 Ml Vial IVP 4 mg Q6H PRN Administration Nausea/Vomiting Pantoprazole Sodium 40 mg 08/11/20 09:00 08/13/20 08:40 Pantoprazole 40 Mg Tab PO 40 mg DAILY TIEN Administration Polyethylene Glycol 17 gm 08/12/20 12:14 08/12/20 13:10 Polyethylene Glycol 3350 17 Gm Packet PO 17 gm DAILYPRN PRN Administration Constipation Senna/Docusate Sodium 2 tab 08/10/20 18:53 08/12/20 11:42 Senokot S 8.6-50 Mg Tab PO 2 tab BIDPRN PRN Administration Constipation Sodium Chloride 10 ml 08/13/20 09:00 08/13/20 09:12 Flush - Normal Saline 10 Ml Syringe IVF 10 ml Q12HR TIEN Administration - Exam General Appearance: ill appearing Heart: RRR, no murmur, no gallops, no rubs, normal peripheral pulses Respiratory: CTAB, no wheezes, no rales, no ronchi, normal chest expansion, no tachypnea, normal percussion Gastrointestinal: soft, non-distended, normal bowel sounds, no palpable masses, tender to palpation (Lower abdomen) Extremities: no cyanosis, no clubbing, no edema Skin: normal turgor Neurological: no focal deficits Musculoskeletal: normal tone, generalized weakness Musculoskeletal - other findings: Some clear weight loss from my evaluation of him in July Hosp A/P (1) Tumor lysis syndrome Code(s): E88.3 - TUMOR LYSIS SYNDROME Status: Acute (2) Acute renal failure Status: Acute (3) Melanoma Code(s): C43.9 - MALIGNANT MELANOMA OF SKIN, UNSPECIFIED Status: Acute (4) Liver metastases Code(s): C78.7 - SECONDARY MALIG NEOPLASM OF LIVER AND INTRAHEPATIC BILE DUCT Status: Acute (5) Lung metastases Code(s): C78.00 - SECONDARY MALIGNANT NEOPLASM OF UNSPECIFIED LUNG Status: Acute (6) Portal vein thrombosis Code(s): I81 - PORTAL VEIN THROMBOSIS Status: Acute (7) GERD (gastroesophageal reflux disease) Code(s): K21.9 - GASTRO-ESOPHAGEAL REFLUX DISEASE WITHOUT ESOPHAGITIS Status: Chronic (8) Hyperlipidemia Code(s): E78.5 - HYPERLIPIDEMIA, UNSPECIFIED Status: Chronic (9) Abdominal pain Code(s): R10.9 - UNSPECIFIED ABDOMINAL PAIN Status: Acute (10) Nausea & vomiting Code(s): R11.2 - NAUSEA WITH VOMITING, UNSPECIFIED Status: Acute - Plan Patient is a 44-year-old male known to me from prior admission at the [facility]. At that time the patient had abdominal pain with imaging revealing liver and lung masses. Biopsy confirmed melanoma. He has subsequently been following with oncology. He is started on chemotherapy. He had follow-up labs which showed worsening renal function and tumor lysis syndrome. Contemporaneous with this the patient became somewhat oliguric. He has been admitted to the hospital for hydration and treatment of tumor lysis syndrome. Tumor lysis syndrome: Patient has received Elitek and allopurinol. He is also received aggressive hydration. Numbers improved daily. Oncology and nephrology following. Acute renal failure: Secondary to tumor lysis syndrome. Continue aggressive hydration. Nephrology following. No indication for dialysis. Patient was oliguric but that appears to be resolving. Continue aggressive IV fluids. Ultrasound on admission showed no evidence of stones or hydronephrosis. Melanoma: Metastatic to liver and intra-abdominal lymph nodes. Original tumor was in his left shoulder area. Repeat CT scan here to evaluate his abdominal pain shows worsening metastatic disease and possible carcinomatosis. Oncology following. He will likely resume Keytruda on discharge if his renal function recovers. Abdominal pain, nausea vomiting: CT scan of the abdomen and pelvis without contrast showed worsening metastatic disease with carcinomatosis but no other specific source of abdominal pain. Discussed with oncology. The patient was actually on MS Contin 30 twice daily at home. Somehow this was not on his medication list here. Being resumed now. IV morphine as needed. Zofran as needed. Hyperlipidemia: Continue statin. Portal vein thrombosis: Found on imaging at the previous admission. Somewhat of an equivocal finding. Chronic at this point. GERD: Pantoprazole DVT prophylaxis: Heparin
[2020-08-13] MEDS: Atorvastatin Calcium 10 MG TAB PO SCH (19:38)
[2020-08-13] MEDS: Morphine ER 30 MG TAB PO SCH (19:38)
[2020-08-14] MEDS: Ondansetron PF 4 MG/2 ML Vial IVP PRN ×3 (02:02→17:00)
[2020-08-14] MEDS: Morphine 4 MG/ML VIAL SLOW IVP PRN ×2 (02:02→20:41)
[2020-08-14] MEDS: Sodium Chloride 0.9% 1,000 ML IV SCH ×3 (02:03→20:50)
[2020-08-14 05:18] LABS: Anion Gap 12 mmol/L (10-20); BUN (Urea Nitrogen) 29 mg/dL (8.9-20.6); Calc. Creatinine Clearance 82 mL/min (70-130); Calcium 7.3 mg/dL (7.8-10.44); Carbon Dioxide 23 mmol/L (22-29); Chloride 106 mmol/L (98-107); Glucose 90 mg/dL (70-105); Potassium 4.1 mmol/L (3.5-5.1); Sodium 137 mmol/L (136-145); Uric Acid 2.9 mg/dL (3.5-7.2)
[2020-08-14] MEDS: Allopurinol 100 MG TAB PO SCH (08:29)
[2020-08-14] MEDS: Morphine ER 30 MG TAB PO SCH ×2 (08:29→20:44)
[2020-08-14] MEDS: Heparin 5,000 UNITS/ML VIAL SC SCH ×2 (08:30→20:42)
--- NOTE | 2020-08-14 11:31 | PRG ---
DATE OF SERVICE: 08/14/2020 SUBJECTIVE: A 44-year-old gentleman, being seen for acute kidney injury. The patient denied nausea, vomiting, or chest pain. PHYSICAL EXAMINATION: General: The patient is awake and alert. Vital Signs: Afebrile, pulse 75, breathing at 16, blood pressure 122/63. HEENT: Head normocephalic and atraumatic. Eyes intact, no ulcers. Nose intact, no ulcers. Ears intact, no ulcers. Neck: Supple. No JVD. Chest: Symmetrical and clear. Cardiovascular: Shows S1 and S2, no rub, no murmur. Gastrointestinal: Abdomen is soft, bowel sounds positive. Extremities: Show no edema or ulcers. Skin: Shows no rash or petechiae. Musculoskeletal: Shows no joint swelling or stiffness. Genitourinary: Shows no Hand or CVA tenderness. Neurologic: Motor intact. Cranial nerves intact. LABORATORY DATA: Reviewed. ASSESSMENT AND RECOMMENDATIONS: 1. Chronic kidney disease, stage 3, improved. 2. Acute kidney injury, improved. 3. Hypertension, stable. 4. Anemia, stable. 5. Metabolic acidosis, improved. 6. No indication for dialysis. Job ID: [id number]
[2020-08-14] MEDS: Morphine 2 MG/ML VIAL SLOW IVP PRN ×2 (12:02→15:47)
--- NOTE | 2020-08-14 16:10 | PDOC.MOPN ---
Interval History: patient feels much better. Nausea and acid resolved. pain controlled with ms contin - Vital Signs Vital Signs: Vital Signs (12 hours) Temp Pulse Resp BP BP Pulse Ox 08/14/20 15:10 98.5 F 79 20 113/58 L 98 08/14/20 11:55 97.6 F 81 20 115/57 L 97 08/14/20 08:29 96 08/14/20 07:50 98.4 F 80 24 H 128/63 96 08/14/20 04:15 98.1 F 85 18 106/55 L 94 L Weight Weight 222 lb 6.4 oz - Physical Exam General: Alert HEENT: Atraumatic, PERRLA, EOMI, Mucous membr. moist/pink Lungs: Clear to auscultation, Normal air movement Cardiovascular: Regular rate, Normal S1, Normal S2, No murmurs, Gallops, Rubs Abdomen: Normal bowel sounds, Soft, No tenderness, No hepatospenomegaly, No masses Neurological: Normal gait, Normal speech, Strength at 5/5 X4 ext, Normal tone, Sensation intact, Cranial nerves 3-12 NL, Reflexes 2+ - Labs Result Diagrams: 08/13/20 04:36 08/14/20 04:25 Lab results: Laboratory Results - last 24 hr 08/14/20 04:25: Sodium 137, Potassium 4.1, Chloride 106, Carbon Dioxide 23, Anion Gap 12, BUN 29 H, Creatinine 1.61 H, Estimated GFR (MDRD) 46, Glucose 90, Uric Acid 2.9 L, Calcium 7.3 L, Phosphorus 3.0 Status: lab reviewed by me A/P - Problem (1) Abdominal pain Current Visit: Yes Code(s): R10.9 - UNSPECIFIED ABDOMINAL PAIN Status: Acute (2) Melanoma Current Visit: Yes Code(s): C43.9 - MALIGNANT MELANOMA OF SKIN, UNSPECIFIED Status: Acute (3) Tumor lysis syndrome Current Visit: Yes Code(s): E88.3 - TUMOR LYSIS SYNDROME Status: Acute - Plan Plan: 1. creatinine improving, continue IVF 2. pain controlled. continue ms contin 3. TLS appears to have resolved 4. home when ok with Nephrology
[2020-08-14] MEDS: Senokot S 8.6-50 MG TAB PO PRN (17:07)
--- NOTE | 2020-08-14 17:44 | PDOC.HOSPP ---
- Subjective Encounter Date: 08/14/20 Subjective: Feeling better. His pain is much improved. He had an episode of vomiting last night during which he produced some bilious emesis. Subsequent to that his abdominal pain has been better. He has been taking some liquids today. - Objective Vital Signs & Weight: Vital Signs (12 hours) Temp Pulse Resp BP BP Pulse Ox 08/14/20 16:35 98.5 F 80 20 120/62 99 08/14/20 15:10 98.5 F 79 20 113/58 L 98 08/14/20 11:55 97.6 F 81 20 115/57 L 97 08/14/20 08:29 96 08/14/20 07:50 98.4 F 80 24 H 128/63 96 Weight Weight 222 lb 6.4 oz I&O: 08/13/20 08/14/20 08/15/20 06:59 06:59 06:59 Intake Total 4890 3590 Output Total 3 300 Balance 4887 3290 Result Diagrams: 08/13/20 04:36 08/14/20 04:25 Hospitalist ROS - Medication Medications: Active Medications Generic Name Dose Route Start Last Admin Trade Name Freq PRN Reason Stop Dose Admin Acetaminophen 650 mg 08/10/20 18:53 08/11/20 20:47 Acetaminophen 325 Mg Tab PO 650 mg Q6H PRN Administration Headache/Fever/Mild Pain (1-3) Hydrocodone Bitart/Acetaminophen 1 tab 08/11/20 12:00 08/12/20 20:26 Hydrocodone/Acetaminophen 5/325 Mg Tablet PO 1 tab Q6H PRN Administration Moderate to Severe Pain (6-10) Allopurinol 200 mg 08/11/20 09:00 08/14/20 08:29 Allopurinol 100 Mg Tab PO 200 mg DAILY TIEN Administration Atorvastatin Calcium 10 mg 08/11/20 21:00 08/13/20 19:38 Atorvastatin Calcium 10 Mg Tab PO 10 mg HS TIEN Administration Heparin Sodium (Porcine) 5,000 units 08/12/20 21:00 08/14/20 08:30 Heparin 5,000 Units/Ml Vial SC 5,000 units BID TIEN Administration Sodium Chloride 1,000 mls @ 100 mls/hr 08/12/20 11:34 08/14/20 08:26 Normal Saline 0.9% IV 1,000 mls .Q10H TIEN Administration Morphine Sulfate 4 mg 08/13/20 08:54 08/14/20 02:02 Morphine 4 Mg/Ml Vial SLOW IVP 4 mg Q4H PRN Administration Moderate to Severe Pain (6-10) Morphine Sulfate 2 mg 08/13/20 08:54 08/14/20 15:47 Morphine 2 Mg/Ml Vial SLOW IVP 2 mg Q4H PRN Administration Mild-Moderate Pain (1-5) Morphine Sulfate 30 mg 08/13/20 21:00 08/14/20 08:29 Morphine Er 30 Mg Tab PO 30 mg Q12HR TIEN Administration Ondansetron HCl 4 mg 08/12/20 12:39 08/14/20 17:00 Ondansetron Pf 4 Mg/2 Ml Vial IVP 4 mg Q6H PRN Administration Nausea/Vomiting Pantoprazole Sodium 40 mg 08/11/20 09:00 08/14/20 08:30 Pantoprazole 40 Mg Tab PO 40 mg DAILY TIEN Administration Polyethylene Glycol 17 gm 08/12/20 12:14 08/12/20 13:10 Polyethylene Glycol 3350 17 Gm Packet PO 17 gm DAILYPRN PRN Administration Constipation Senna/Docusate Sodium 2 tab 08/10/20 18:53 08/14/20 17:07 Senokot S 8.6-50 Mg Tab PO 2 tab BIDPRN PRN Administration Constipation Sodium Chloride 10 ml 08/13/20 09:00 08/14/20 00:32 Flush - Normal Saline 10 Ml Syringe IVF 10 ml Q12HR TIEN Administration Zolpidem Tartrate 5 mg 08/11/20 08:03 08/13/20 19:38 Zolpidem Tartrate 5 Mg Tab PO 5 mg HS PRN Administration Insomnia - Exam General Appearance: NAD, awake alert Heart: RRR, no murmur, no gallops, no rubs, normal peripheral pulses Respiratory: CTAB, no wheezes, no rales, no ronchi, normal chest expansion, no tachypnea, normal percussion Gastrointestinal: soft, non-tender, non-distended, normal bowel sounds, no palpable masses, no hepatomegaly, no splenomegaly, no bruit Extremities: no cyanosis, no clubbing, no edema Skin: normal turgor Neurological: no focal deficits Musculoskeletal: normal tone, normal strength, no muscle wasting Psychiatric: normal affect, normal behavior, A&O x 3 Hosp A/P (1) Tumor lysis syndrome Code(s): E88.3 - TUMOR LYSIS SYNDROME Status: Acute (2) Acute renal failure Status: Acute (3) Melanoma Code(s): C43.9 - MALIGNANT MELANOMA OF SKIN, UNSPECIFIED Status: Acute (4) Liver metastases Code(s): C78.7 - SECONDARY MALIG NEOPLASM OF LIVER AND INTRAHEPATIC BILE DUCT Status: Acute (5) Lung metastases Code(s): C78.00 - SECONDARY MALIGNANT NEOPLASM OF UNSPECIFIED LUNG Status: Acute (6) Portal vein thrombosis Code(s): I81 - PORTAL VEIN THROMBOSIS Status: Acute (7) GERD (gastroesophageal reflux disease) Code(s): K21.9 - GASTRO-ESOPHAGEAL REFLUX DISEASE WITHOUT ESOPHAGITIS Status: Chronic (8) Hyperlipidemia Code(s): E78.5 - HYPERLIPIDEMIA, UNSPECIFIED Status: Chronic (9) Abdominal pain Code(s): R10.9 - UNSPECIFIED ABDOMINAL PAIN Status: Acute (10) Nausea & vomiting Code(s): R11.2 - NAUSEA WITH VOMITING, UNSPECIFIED Status: Acute - Plan Patient is a 44-year-old male known to me from prior admission at the [facility]. At that time the patient had abdominal pain with imaging revealing liver and lung masses. Biopsy confirmed melanoma. He has subsequently been following with oncology. He is started on chemotherapy. He had follow-up labs which showed worsening renal function and tumor lysis syndrome. Contemporaneous with this the patient became somewhat oliguric. He has been admitted to the hospital for hydration and treatment of tumor lysis syndrome. Tumor lysis syndrome: Patient has received Elitek and allopurinol. He is also received aggressive hydration. Numbers improved daily. Creatinine and uric acid are both substantially better. Oncology and nephrology following. Unclear that this was in any way related to his treatment or if it was simply autoinfarction. Acute renal failure: Secondary to tumor lysis syndrome. Continue aggressive hydration. Nephrology following. No indication for dialysis. Patient was oliguric but that appears to be resolved. GFR much improved. Continue aggressive IV fluids. Ultrasound on admission showed no evidence of stones or hydronephrosis. Melanoma: Metastatic to liver and intra-abdominal lymph nodes. Original tumor was in his left shoulder area. Repeat CT scan here to evaluate his abdominal pain shows worsening metastatic disease and possible carcinomatosis. Oncology following. He will likely resume Keytruda on discharge if his renal function recovers. Abdominal pain, nausea vomiting: CT scan of the abdomen and pelvis without contrast showed worsening metastatic disease with carcinomatosis but no other specific source of abdominal pain. Discussed with oncology. The patient was actually on MS Contin 30 twice daily at home. Somehow this was not on his medication list here. Being resumed now. IV morphine as needed. Zofran as needed. Hyperlipidemia: Continue statin. Portal vein thrombosis: Found on imaging at the previous admission. Somewhat of an equivocal finding. Chronic at this point. GERD: Pantoprazole DVT prophylaxis: Heparin Disposition: Patient is taking p.o.'s well on 08/14/2020. If he can continue to adequately hydrate and his pain remains well controlled he can likely discharge on 08/15/2020 if okay with nephrology.
[2020-08-14] MEDS: Atorvastatin Calcium 10 MG TAB PO SCH (20:41)
[2020-08-14] MEDS: Acetaminophen 325 MG TAB PO PRN (20:43)
[2020-08-15] MEDS: Morphine 4 MG/ML VIAL SLOW IVP PRN ×2 (02:41→17:34)
[2020-08-15 04:00] LABS: Anion Gap 14 mmol/L (10-20); BUN (Urea Nitrogen) 21 mg/dL (8.9-20.6); Calc. Creatinine Clearance 108 mL/min (70-130); Carbon Dioxide 20 mmol/L (22-29); Chloride 106 mmol/L (98-107); Glucose 80 mg/dL (70-105); Phosphorus 2.4 mg/dL (2.3-4.7); Sodium 136 mmol/L (136-145); Uric Acid 2.9 mg/dL (3.5-7.2)
[2020-08-15] MEDS: Morphine ER 30 MG TAB PO SCH ×2 (09:15→21:08)
[2020-08-15] MEDS: Allopurinol 100 MG TAB PO SCH (09:15)
[2020-08-15] MEDS: Heparin 5,000 UNITS/ML VIAL SC SCH ×2 (09:16→21:08)
[2020-08-15] MEDS: Sodium Chloride 0.9% 1,000 ML IV SCH ×2 (09:22→17:37)
[2020-08-15] MEDS: HYDROcodone/Acetaminophen 5/325 mg Tablet PO PRN (20:04)
[2020-08-15] MEDS: Atorvastatin Calcium 10 MG TAB PO SCH (21:08)
--- NOTE | 2020-08-15 22:22 | PDOC.HOSPP ---
- Subjective Encounter Date: 08/15/20 Encounter Time: 15:00 Subjective: Patient seen and examined. Denies any new complaints. Abdominal pain improving. Denies any new episode of vomiting. Feels bloated. - Objective Vital Signs & Weight: Vital Signs (12 hours) Temp Pulse Resp BP BP Pulse Ox 08/15/20 19:16 100.3 F H 90 16 109/54 L 96 08/15/20 16:00 99.0 F 85 18 119/66 97 08/15/20 12:00 99.1 F 82 18 116/64 96 Weight Weight 222 lb 6.4 oz I&O: 08/14/20 08/15/20 08/16/20 06:59 06:59 06:59 Intake Total 3590 620 690 Output Total 300 390 Balance 3290 620 300 Result Diagrams: 08/13/20 04:36 08/16/20 04:13 Additional Labs: Abnormal Lab Results - Last 48 hrs 08/15/20 03:25: Carbon Dioxide 20 L, BUN 21 H, Uric Acid 2.9 L, Calcium 7.0 L 08/16/20 04:13: Carbon Dioxide 19 L, Uric Acid 3.1 L, Calcium 7.2 L Radiology Reviewed by me: Yes (CT abdomen reviewed) Hospitalist ROS - Review of Systems Constitutional: reports: weakness. denies: fever, chills, sweats, malaise, other Cardiovascular: denies: chest pain, palpitations, orthopnea, paroxysmal noc. dyspnea, edema, light headedness, other - Medication Medications: Active Medications Generic Name Dose Route Start Last Admin Trade Name Freq PRN Reason Stop Dose Admin Acetaminophen 650 mg 08/10/20 18:53 08/14/20 20:43 Acetaminophen 325 Mg Tab PO 650 mg Q6H PRN Administration Headache/Fever/Mild Pain (1-3) Hydrocodone Bitart/Acetaminophen 1 tab 08/11/20 12:00 08/15/20 20:04 Hydrocodone/Acetaminophen 5/325 Mg Tablet PO 1 tab Q6H PRN Administration Moderate to Severe Pain (6-10) Allopurinol 200 mg 08/11/20 09:00 08/15/20 09:15 Allopurinol 100 Mg Tab PO 200 mg DAILY TIEN Administration Atorvastatin Calcium 10 mg 08/11/20 21:00 08/15/20 21:08 Atorvastatin Calcium 10 Mg Tab PO 10 mg HS TIEN Administration Heparin Sodium (Porcine) 5,000 units 08/12/20 21:00 08/15/20 21:08 Heparin 5,000 Units/Ml Vial SC 5,000 units BID TIEN Administration Sodium Chloride 1,000 mls @ 100 mls/hr 08/12/20 11:34 08/15/20 17:37 Normal Saline 0.9% IV 1,000 mls .Q10H TIEN Administration Morphine Sulfate 4 mg 08/13/20 08:54 08/15/20 17:34 Morphine 4 Mg/Ml Vial SLOW IVP 4 mg Q4H PRN Administration Moderate to Severe Pain (6-10) Morphine Sulfate 2 mg 08/13/20 08:54 08/14/20 15:47 Morphine 2 Mg/Ml Vial SLOW IVP 2 mg Q4H PRN Administration Mild-Moderate Pain (1-5) Morphine Sulfate 30 mg 08/13/20 21:00 08/15/20 21:08 Morphine Er 30 Mg Tab PO 30 mg Q12HR TIEN Administration Ondansetron HCl 4 mg 08/12/20 12:39 08/14/20 17:00 Ondansetron Pf 4 Mg/2 Ml Vial IVP 4 mg Q6H PRN Administration Nausea/Vomiting Pantoprazole Sodium 40 mg 08/11/20 09:00 08/15/20 09:15 Pantoprazole 40 Mg Tab PO 40 mg DAILY TIEN Administration Polyethylene Glycol 17 gm 08/12/20 12:14 08/12/20 13:10 Polyethylene Glycol 3350 17 Gm Packet PO 17 gm DAILYPRN PRN Administration Constipation Senna/Docusate Sodium 2 tab 08/10/20 18:53 08/14/20 17:07 Senokot S 8.6-50 Mg Tab PO 2 tab BIDPRN PRN Administration Constipation Sodium Chloride 10 ml 08/13/20 09:00 08/15/20 21:09 Flush - Normal Saline 10 Ml Syringe IVF 10 ml Q12HR TIEN Administration Zolpidem Tartrate 5 mg 08/11/20 08:03 08/13/20 19:38 Zolpidem Tartrate 5 Mg Tab PO 5 mg HS PRN Administration Insomnia - Exam General Appearance: ill appearing Neck: supple, no JVD Heart: RRR, no gallops Respiratory: no wheezes, no ronchi Gastrointestinal: soft, no guarding, no rigidity Extremities: no cyanosis, no clubbing Hosp A/P - Plan DVT proph w/SCDs HARPER on CKD stage IIimproving Tumor lysis syndrome GERD Hypertension Hyperlipidemia Melanoma Plan: Creatinine 1.2 today. We will continue current pain regimen with IV fluids. Continue current pain regimen. Advised patient to discontinue NSAIDs. Continue MS Contin. Continue PPIs. Recheck labs in a.m. DC in a.m. if okay with consultants
[2020-08-16] MEDS: Morphine 4 MG/ML VIAL SLOW IVP PRN ×4 (00:48→18:10)
[2020-08-16 05:08] LABS: Anion Gap 15 mmol/L (10-20); BUN (Urea Nitrogen) 17 mg/dL (8.9-20.6); Calc. Creatinine Clearance 133 mL/min (70-130); Calcium 7.2 mg/dL (7.8-10.44); Carbon Dioxide 19 mmol/L (22-29); Chloride 106 mmol/L (98-107); Glucose 75 mg/dL (70-105); Potassium 4.1 mmol/L (3.5-5.1); Sodium 136 mmol/L (136-145); Uric Acid 3.1 mg/dL (3.5-7.2)
[2020-08-16] MEDS: Sodium Chloride 0.9% 1,000 ML IV SCH (06:01)
[2020-08-16] MEDS: Allopurinol 100 MG TAB PO SCH (08:55)
[2020-08-16] MEDS: Morphine ER 30 MG TAB PO SCH ×2 (08:56→20:09)
[2020-08-16] MEDS: Senokot S 8.6-50 MG TAB PO PRN (09:02)
--- NOTE | 2020-08-16 10:56 | RAD ---
ABDOMEN 2 VIEWS WITH A 1 VIEW CHEST XRAY: HISTORY: Abdominal pain with distention. COMPARISON: Reference is made to a CT exam 08/12/2020. FINDINGS: The lungs are without focal airspace consolidation, pneumothorax, or effusion. Liver appears to be e nlarged. No dilated air-filled loops of large or small bowel. Phleboliths in the pelvis. No acute osseous abnormality. IMPRESSION: 1. No evidence for pneumonia. 2. Enlarged liver. This may be sequelae of portal venous thrombosis or mass. POS: [facility]
[2020-08-16] MEDS: HYDROcodone/Acetaminophen 5/325 mg Tablet PO PRN ×3 (11:10→23:47)
[2020-08-16] MEDS: Simethicone Chewable 80 MG TAB PO SCH ×3 (12:00→20:09)
--- NOTE | 2020-08-16 12:48 | PRG ---
DATE OF SERVICE: 08/15/2020 SUBJECTIVE: A 44-year-old gentleman, being seen for acute kidney injury. The patient denies any nausea, vomiting, or chest pain. OBJECTIVE: General: The patient is awake and alert. Vital Signs: Afebrile, pulse 82, breathing at 16, blood pressure 120/61. HEENT: Head normocephalic and atraumatic. Eyes intact, no ulcers. Nose intact, no ulcers. Ears intact, no ulcers. Neck: Supple. No JVD. Chest: Symmetrical and clear. Cardiovascular: Shows S1 and S2, no rub, no murmur. Gastrointestinal: Abdomen is soft, bowel sounds positive. Extremities: Show no edema or ulcers. Skin: Shows no rash or petechiae. Musculoskeletal: Shows no joint swelling or stiffness. Genitourinary: Shows no Hand or CVA tenderness. Neurologic: Motor intact. Cranial nerves intact. LABORATORY DATA: Reviewed. ASSESSMENT AND PLAN: 1. Stage 3 chronic kidney, stable. 2. Hypertension, stable. 3. Anemia, stable. 4. Acute kidney injury, resolved. The patient now has CKD, stage 2. No indication for dialysis. I will sign off. Please reconsult as needed. Job ID: [id number]
--- NOTE | 2020-08-16 16:07 | PDOC.MOPN ---
Interval History: he was feeling better ready to go home, then today he noticed swelling in his abdomen and legs and says "yall gave me too much fluids." fluids have been stopped but he is uncomfortable and bloated. he would like to get fluid off before going home - Vital Signs Vital Signs: Vital Signs (12 hours) Temp Pulse Resp BP Pulse Ox 08/16/20 08:05 98.6 F 88 16 134/61 95 08/16/20 08:00 95 Weight Weight 222 lb 6.4 oz - Physical Exam General: Alert, Mild distress Lungs: Clear to auscultation Cardiovascular: Regular rate Abdomen: Other (distended, NT, no f/g) Skin: No rashes Neurological: Normal speech Psych/Mental Status: Mental status NL - Labs Result Diagrams: 08/13/20 04:36 08/16/20 04:13 Lab results: Laboratory Results - last 24 hr 08/16/20 04:13: Sodium 136, Potassium 4.1, Chloride 106, Carbon Dioxide 19 L, Anion Gap 15, BUN 17, Creatinine 0.99, Estimated GFR (MDRD) 81, Glucose 75, Uric Acid 3.1 L, Calcium 7.2 L A/P - Problem (1) Abdominal pain Current Visit: Yes Code(s): R10.9 - UNSPECIFIED ABDOMINAL PAIN Status: Acute (2) Acute renal failure Current Visit: Yes Status: Acute (3) Liver metastases Current Visit: Yes Code(s): C78.7 - SECONDARY MALIG NEOPLASM OF LIVER AND INTRAHEPATIC BILE DUCT Status: Acute (4) Melanoma Current Visit: Yes Code(s): C43.9 - MALIGNANT MELANOMA OF SKIN, UNSPECIFIED Status: Acute (5) Tumor lysis syndrome Current Visit: Yes Code(s): E88.3 - TUMOR LYSIS SYNDROME Status: Acute (6) Abdominal pain, right upper quadrant Current Visit: No Code(s): R10.11 - RIGHT UPPER QUADRANT PAIN Status: Acute - Plan Plan: 1. IV lasix x 1 2. continue narcotics 3. f/u in office for ekta
[2020-08-16] MEDS ORDERED: Furosemide 40 MG/4 ML VIAL SLOW IVP SCH (16:15)
[2020-08-16] MEDS: Senokot S 8.6-50 MG TAB PO SCH (20:09)
[2020-08-16] MEDS: Atorvastatin Calcium 10 MG TAB PO SCH (20:09)
[2020-08-16] MEDS: Polyethylene Glycol 3350 17 GM Packet PO SCH (20:10)
--- NOTE | 2020-08-16 22:08 | PDOC.HOSPP ---
- Subjective Encounter Date: 08/16/20 Encounter Time: 09:30 Subjective: Patient seen and examined for acute kidney injury due to tumor lysis syndrome. Continues to have abdominal discomfort with Generalized anasarca. Poor appetite. Nauseous without any vomiting. - Objective Vital Signs & Weight: Vital Signs (12 hours) Temp Pulse Resp BP Pulse Ox 08/16/20 19:22 98.3 F 85 14 113/60 96 Weight Weight 222 lb 6.4 oz I&O: 08/15/20 08/16/20 08/17/20 06:59 06:59 06:59 Intake Total 620 2540 700 Output Total 390 Balance 620 2150 700 Result Diagrams: 08/13/20 04:36 08/16/20 04:13 Additional Labs: Abnormal Lab Results - Last 48 hrs 08/15/20 03:25: Carbon Dioxide 20 L, BUN 21 H, Uric Acid 2.9 L, Calcium 7.0 L 08/16/20 04:13: Carbon Dioxide 19 L, Uric Acid 3.1 L, Calcium 7.2 L Radiology Reviewed by me: Yes (KUBno obstruction) Hospitalist ROS - Review of Systems Respiratory: denies: cough, dry, shortness of breath, hemoptysis, SOB with excertion, pleuritic pain, sputum, wheezing, other Cardiovascular: denies: chest pain, palpitations, orthopnea, paroxysmal noc. dyspnea, edema, light headedness, other - Medication Medications: Active Medications Generic Name Dose Route Start Last Admin Trade Name Freq PRN Reason Stop Dose Admin Acetaminophen 650 mg 08/10/20 18:53 08/14/20 20:43 Acetaminophen 325 Mg Tab PO 650 mg Q6H PRN Administration Headache/Fever/Mild Pain (1-3) Hydrocodone Bitart/Acetaminophen 1 tab 08/11/20 12:00 08/16/20 17:24 Hydrocodone/Acetaminophen 5/325 Mg Tablet PO 1 tab Q6H PRN Administration Moderate to Severe Pain (6-10) Allopurinol 200 mg 08/11/20 09:00 08/16/20 08:55 Allopurinol 100 Mg Tab PO 200 mg DAILY TIEN Administration Atorvastatin Calcium 10 mg 08/11/20 21:00 08/16/20 20:09 Atorvastatin Calcium 10 Mg Tab PO 10 mg HS TIEN Administration Morphine Sulfate 4 mg 08/13/20 08:54 08/16/20 18:10 Morphine 4 Mg/Ml Vial SLOW IVP 4 mg Q4H PRN Administration Moderate to Severe Pain (6-10) Morphine Sulfate 2 mg 08/13/20 08:54 08/14/20 15:47 Morphine 2 Mg/Ml Vial SLOW IVP 2 mg Q4H PRN Administration Mild-Moderate Pain (1-5) Morphine Sulfate 30 mg 08/13/20 21:00 08/16/20 20:09 Morphine Er 30 Mg Tab PO 30 mg Q12HR TIEN Administration Ondansetron HCl 4 mg 08/12/20 12:39 08/14/20 17:00 Ondansetron Pf 4 Mg/2 Ml Vial IVP 4 mg Q6H PRN Administration Nausea/Vomiting Pantoprazole Sodium 40 mg 08/11/20 09:00 08/16/20 08:59 Pantoprazole 40 Mg Tab PO 40 mg DAILY TIEN Administration Polyethylene Glycol 17 gm 08/16/20 21:00 08/16/20 20:10 Polyethylene Glycol 3350 17 Gm Packet PO 17 gm BID TIEN Administration Senna/Docusate Sodium 2 tab 08/16/20 21:00 08/16/20 20:09 Senokot S 8.6-50 Mg Tab PO 2 tab BID TIEN Administration Simethicone 80 mg 08/16/20 13:00 08/16/20 20:09 Simethicone Chewable 80 Mg Tab PO 80 mg PCHS TIEN Administration Sodium Chloride 10 ml 08/13/20 09:00 08/16/20 20:10 Flush - Normal Saline 10 Ml Syringe IVF 10 ml Q12HR TIEN Administration Sodium Chloride 10 ml 08/13/20 09:00 08/16/20 20:10 Flush - Normal Saline 10 Ml Syringe IVF 10 ml PRN PRN Administration Saline Flush Zolpidem Tartrate 5 mg 08/11/20 08:03 08/13/20 19:38 Zolpidem Tartrate 5 Mg Tab PO 5 mg HS PRN Administration Insomnia - Exam General Appearance: ill appearing Neck: supple, no JVD Heart: RRR, no gallops Respiratory: no wheezes, no ronchi Gastrointestinal: soft, normal bowel sounds, no guarding, no rigidity, distended Extremities: no cyanosis, no clubbing, 2+ LE edema Psychiatric: normal affect, A&O x 3 Hosp A/P - Plan DVT proph w/heparin, DVT proph w/SCDs HARPER on CKD stage IIimproving Tumor lysis syndrome Abdominal distention/pain Generalized anasarcaprobably iatrogenic Constipation GERD Hypertension Hyperlipidemia Melanoma Plan: Consult gastroenterology. KUB negative for obstruction. IV fluid discontinued. Continue morphine prn for pain control along with scheduled MS Contin. Continue MiraLAX with Senokot-S bid. AM labs.Case discussed with oncology service. Continue allopurinol.Continue other medications as above
[2020-08-17] MEDS: Morphine 4 MG/ML VIAL SLOW IVP PRN ×4 (00:36→17:13)
--- NOTE | 2020-08-17 01:51 | CON ---
DATE OF CONSULTATION: 08/16/2020 REQUESTING PHYSICIAN: Dr. Benoit. REASON FOR CONSULTATION: Abdominal pain. HISTORY OF PRESENT ILLNESS: Laureano Segura is a very pleasant, but unfortunate 44-year-old gentleman who was diagnosed with metastatic melanoma within the past couple of months. He had a prior history of melanoma excision back in 2014, but unfortunately was diagnosed with recurrent metastatic melanoma last month when he presented with imaging demonstrating pulmonary and hepatic metastatic involvement with biopsies confirming melanoma. He recently received a dose of Keytruda on July 20. He had worsening creatinine noted on lab monitoring and so was admitted on 08/10/2020 for tumor lysis syndrome and acute kidney injury. He has been followed by Oncology and Nephrology. He received aggressive hydration. His creatinine and urine output have significantly improved. During this time, the patient has noted some worsening lower extremity edema as well as some abdominal distention. He has some chronic generalized abdominal discomfort which is somewhat migratory over the past couple of months. He had some nausea and a few episodes of emesis on presentation, but no current nausea. He says his bowel habits have been okay. There is no blood in the stool. He continues to have regular bowel movements on a regimen of MiraLAX and senna twice daily. He has been tolerating his diet. REVIEW OF SYSTEMS: Full review of systems including constitutional, head, eyes, ears, nose, throat, GI, , cardiovascular, respiratory, musculoskeletal, neurologic systems is negative except as noted in the HPI. PAST MEDICAL HISTORY: Metastatic malignant melanoma, hypertension, hyperlipidemia, GERD. FAMILY HISTORY: Positive for lung cancer. SOCIAL HISTORY: He is with 2 children. Prior tobacco and alcohol use, but none over the past month since diagnosis. ALLERGIES: NO KNOWN DRUG ALLERGIES. CURRENT MEDICATIONS: 1. Tylenol p.r.n. 2. Imbler p.r.n. 3. Allopurinol. 4. Lipitor. 5. Morphine p.r.n. 6. MS Contin 30 mg q.12 hours. 7. Zofran p.r.n. 8. Pantoprazole 40 mg daily. 9. MiraLAX 17 g twice daily. 10. Senna 2 tabs twice daily. 11. Simethicone 80 mg at bedtime. 12. Ambien. PHYSICAL EXAMINATION: VITAL SIGNS: Temperature 98.6, pulse 88, blood pressure 134/61, 95% oxygen saturation on room air. GENERAL: 44-year-old man, sitting up in chair comfortably, in no distress. SKIN: No jaundice. HEENT: Eyes, no scleral icterus. Extraocular movements intact. ENT, mucous membranes moist. No oral lesions. LYMPH: No submandibular or supraclavicular lymphadenopathy. HEART: Regular rate and rhythm. LUNGS: Clear to auscultation bilaterally. ABDOMEN: Obese, he has mild distention, tympanitic to percussion. Bowel sounds are present. Some generalized tenderness to palpation, but no guarding or rebound tenderness. EXTREMITIES: 1+ bilateral lower extremity edema. NEUROLOGIC: Cranial nerves 2 through 12 intact bilaterally. LABORATORY STUDIES: Last CBC was from 08/13/2020, showed WBC 4.8, hemoglobin 8.1, platelets 188. CMP from today showed sodium 136, potassium 4.1, BUN 17, creatinine 0.99. LFTs from admission showed total bilirubin only 0.7, alkaline phosphatase 428, AST 68, ALT 40, albumin 2.5, LDH elevated at 1712. COVID PCR negative from 08/10/2020. IMAGING STUDIES: Chest and abdominal x-ray from earlier today demonstrated clear lung samayoa, hepatomegaly. No evidence of any bowel dilation or obstructive findings. CT of the abdomen and pelvis from 08/12/2020 showed significant worsening of metastatic disease with enlargement of metastatic intraabdominal lymphadenopathy. There is fat stranding in the mesentery suggestive of peritoneal carcinomatosis. Multiple liver masses, including large mass in the left side causing hepatic enlargement and extending into the right liver lobe. ASSESSMENT/PLAN: 1. Generalized abdominal pain. 2. Metastatic melanoma with extensive abdominal tumor burden and peritoneal carcinomatosis. I had a long discussion with the patient that his abdominal pain symptoms are likely secondary just to the extensive tumor burden within his abdomen including significant infiltration of the liver, but also what appears to be peritoneal carcinomatosis. There is no evidence of bowel obstruction or biliary obstruction. He does have expected elevation of alkaline phosphatase, but this is due to significant tumor involvement within the hepatic parenchyma. Note, there is no indication for any endoscopic exam or investigation. Treatment of abdominal symptoms is really palliative. I agree the patient needs to be on aggressive bowel regimen to prevent constipation with such significant needed opioid use. He is currently on MiraLAX twice daily and senna twice daily. If he starts having progressive constipation going forward, could consider starting Movantik or Relistor. Otherwise, as he is tolerating his diet and anticipating hospital discharge tomorrow, there are really no other recommendations from a GI perspective at this time. Please call back anytime with questions or concerns. Job ID: [id number]
[2020-08-17 04:08] LABS: #Eosinphils 0.1 thou/uL (0.0-0.7); #Lymphocytes 0.4 thou/uL (1.20-3.40); #Monocytes 0.5 thou/uL (0.11-0.59); %Basophils 0.5 % (0.0-1.0); %Eosinophils 1.5 % (0.0-10.0); %Lymphocytes 6.7 % (21.0-51.0); %Monocytes 8.1 % (0.0-10.0); %Neutrophils 83.3 % (42.0-75.0); Hemoglobin 8.1 g/dL (14.0-18.0); Mean Corpuscular HGB CONC 32.2 g/dL (32.0-36.0); Mean Corpuscular Hemoglobin 29.3 pg (27.0-31.0); Mean Platelet Volume 6.6 fL (7.4-10.4); Platelet Count 176 thou/uL (130-400); RBC Distribution Width 16.4 % (11.5-14.5); Red Blood Cell (RBC) Count 2.76 mill/uL (4.70-6.10)
[2020-08-17 04:24] LABS: Lactic Acid 2.7 mmol/L (0.5-2.2)
[2020-08-17 04:31] LABS: ALT (SGPT) 52 U/L (8-55); AST (SGOT) 118 U/L (5-34); Albumin 2.4 g/dL (3.5-5.0); Alkaline Phosphatase 785 U/L (40-110); Anion Gap 15 mmol/L (10-20); BUN (Urea Nitrogen) 17 mg/dL (8.9-20.6); Bilirubin, Total 0.7 mg/dL (0.2-1.2); Calc. Creatinine Clearance 148 mL/min (70-130); Calcium 7.2 mg/dL (7.8-10.44); Carbon Dioxide 20 mmol/L (22-29); Chloride 104 mmol/L (98-107); Globulin 2.7 g/dL (2.4-3.5); Glucose 88 mg/dL (70-105); Magnesium 1.5 mg/dL (1.6-2.6); Phosphorus 2.2 mg/dL (2.3-4.7); Potassium 3.9 mmol/L (3.5-5.1); Protein, Total 5.1 g/dL (6.0-8.3); Sodium 135 mmol/L (136-145)
[2020-08-17 07:25] VITALS: BP 122/64; TEMP 98.5
[2020-08-17] MEDS ORDERED: Magnesium Sulfate 4 GM in Sodium Chloride 0.9% 250 ML 250 ML IVPB SCH (07:45)
[2020-08-17] MEDS ORDERED: Potassium Phosphate 15 MMOL in Sodium Chloride 0.9% 250 ML 250 ML IVPB SCH (07:45)
[2020-08-17] MEDS: Allopurinol 100 MG TAB PO SCH (08:31)
[2020-08-17] MEDS: Senokot S 8.6-50 MG TAB PO SCH (08:32)
[2020-08-17] MEDS: Morphine ER 30 MG TAB PO SCH (08:34)
[2020-08-17] MEDS: Polyethylene Glycol 3350 17 GM Packet PO SCH (08:35)
[2020-08-17] MEDS: Simethicone Chewable 80 MG TAB PO SCH ×2 (08:36→12:47)
[2020-08-17] MEDS ORDERED: Heparin 5,000 UNITS/ML VIAL SC SCH (09:00)
[2020-08-17] MEDS: HYDROcodone/Acetaminophen 5/325 mg Tablet PO PRN ×2 (09:06→16:42)
[2020-08-17] MEDS: Ondansetron PF 4 MG/2 ML Vial IVP PRN (12:49)
[2020-08-17] MEDS ORDERED: Furosemide 40 MG/4 ML VIAL SLOW IVP SCH (16:30)
--- NOTE | 2020-08-17 17:45 | PDOC.DS.DS ---
Provider - Provider Date of Admission: 08/10/20 15:49 Date of Discharge: 08/17/20 Admitting Provider: Luna Ojeda MD Consultations: Gastroentrology, Nephrology, Oncology Primary Care Physician: JIMBO PCP PROVIDER Course - Hospital Course Hospital Course: Patient is a 44-year-old male with melanoma on chemotherapy presented to the emergency room with generalized weakness along with abnormal labs. He was diagnosed with acute kidney injury and tumor lysis syndrome and was transferred to the hospital for IV hydration. His uric acid on admission was 14.4 with a creatinine of 5.35 with a BUN of 80 and bicarbonate of 15. He was started on rasburicase as well as allopurinol. He was evaluated by oncology and nephrology. His renal function normalized to 0.89 on the day of discharge. Patient had worsening abdominal pain for which he was evaluated by gastroenterology. Per GI the abdominal pain is most likely due to extensive tumor burden within his abdomen. His abdominal pain has improved. Renal function has normalized. He has been cleared by consultants for discharge. He was advised to discontinue NSAID's. Final diagnosis: HARPER on CKD stage II Tumor lysis syndrome Abdominal distention/paindue to tumor burden Constipation GERD Hypertension Hyperlipidemia Melanoma Hyponatremia Metabolic acidosis due to renal failure Chronic pain syndrome Resuscitation Status: 08/10/20 18:53 Resuscitation Status Routine Resuscitation Status: FULL: Full Resuscitation - Labs Lab Results: 08/17/20 03:34 08/17/20 03:34 Abnormal Lab Results - Last 48 hrs 08/16/20 04:13: Carbon Dioxide 19 L, Uric Acid 3.1 L, Calcium 7.2 L 08/17/20 03:34: Lactic Acid 2.7 H 08/17/20 03:34: Sodium 135 L, Carbon Dioxide 20 L, Calcium 7.2 L, Magnesium 1.5 L, AST 118 H, Alkaline Phosphatase 785 H, Serum Total Protein 5.1 L, Albumin 2.4 L, Albumin/Globulin Ratio 0.9 L 08/17/20 03:34: RBC 2.76 L, Hgb 8.1 L, Hct 25.1 L, RDW 16.4 H, MPV 6.6 L, Neutrophils % 83.3 H, Lymphocytes % 6.7 L, Lymphocytes # 0.4 L 08/17/20 03:34: Phosphorus 2.2 L - Physical Exam Vitals: Vital Signs (12 hours) Temp Pulse Resp BP Pulse Ox 08/17/20 08:00 98 08/17/20 07:19 98.5 F 87 16 122/64 98 Weight Weight 222 lb 6.4 oz Physical Exam: The patient was seen and examined on the day of discharge. Plan - Discharge Medications Prescriptions: Furosemide [Lasix] 40 mg PO DAILY PRN #3 tab PRN Reason: Edema/weight gain Allopurinol [Zyloprim] 200 mg PO DAILY #60 tablet Home Medications: Medication Instructions Recorded Confirmed Type HYDROcodone/Acetaminophen [[place]] 1 each PO Q6HR #20 tablet 04/16/13 08/10/20 Rx Omeprazole 20 mg PO DAILY 04/16/13 08/10/20 History Pravastatin Sodium 40 mg PO 2100 04/16/13 08/10/20 History Zolpidem Tartrate [Ambien] 5 mg PO HS PRN #30 tab 07/02/20 08/10/20 Rx Midodrine HCl [ProAmatine] 1 tablet PO BID 08/11/20 08/11/20 History Allopurinol [Zyloprim] 200 mg PO DAILY #60 tablet 08/17/20 Rx Furosemide [Lasix] 40 mg PO DAILY PRN #3 tab 08/17/20 Rx Allergies: No Known Allergies Allergy (Verified 11/21/19 06:49) - Discharge Instructions Discharge Instructions:: BMP after 1 week - PCP to arrange/follow - Follow up Plan Referrals: PROVIDER,NO PCP [Primary Care Provider] - Krystal Mason APRN [[facility] Professional] - 08/20/20 9:30 am Disposition: HOME Quality - Care Measures CORE MEASURES:: N/A
== END 2020-08-17 18:38 | disposition home or self-care (01) | DRG 682 ==
LOC: 2NO 15:49 → ONC 08-14 16:54
PROVIDERS: ADMIT Internal Medicine; ATTEND Internal Medicine
PROC: 3E02340 Introduction of Influenza Vaccine into Muscle, Percutaneous Approach (ICD-10-PCS; principal; 2020-08-11)
PROC: 30233N1 Transfusion of Nonautologous Red Blood Cells into Peripheral Vein, Percutaneous Approach (ICD-10-PCS; 2020-08-12)
DX: N17.9 Acute kidney failure, unspecified (principal); I81 Portal vein thrombosis; C78.7 Secondary malignant neoplasm of liver and intrahepatic bile duct; Z23 Encounter for immunization; Z20.828 Contact with and (suspected) exposure to other viral communicable diseases; E87.1 Hypo-osmolality and hyponatremia; E87.2 Acidosis; C78.00 Secondary malignant neoplasm of unspecified lung; C78.6 Secondary malignant neoplasm of retroperitoneum and peritoneum; E78.5 Hyperlipidemia, unspecified; C43.9 Malignant melanoma of skin, unspecified; K21.9 Gastro-esophageal reflux disease without esophagitis; E83.52 Hypercalcemia; E83.39 Other disorders of phosphorus metabolism; E88.09 Other disorders of plasma-protein metabolism, not elsewhere classified; E88.3 Tumor lysis syndrome; N18.4 Chronic kidney disease, stage 4 (severe); I12.9 Hypertensive chronic kidney disease with stage 1 through stage 4 chronic kidney disease, or unspecified chronic kidney disease; D63.1 Anemia in chronic kidney disease; K59.00 Constipation, unspecified; G89.4 Chronic pain syndrome; Z87.891 Personal history of nicotine dependence
CPT/HCPCS: 36415; 36430; 74022; 74176; 76770; 77336; 77412; 80048; 80053; 82248; 82955; 83605; 83615; 83735; 84100; 84436; 84443; 84550; 85025; 85041; 85046; 86850; 86900; 86901; 87635; J1644; J1940; J2270; J2405; J2783; J3475; J7050; J7070; P9016; Q0163; U0003

== ENCOUNTER 2020-08-22 13:44 | Day surgery (SDC) | payer OTHER ==
[2020-08-22] MEDS ORDERED: Sodium Chloride 0.9% 20 ML ONE (13:47)
[2020-08-22] MEDS ORDERED: Furosemide 40 MG/4 ML VIAL SLOW IVP SCH (14:30)
[2020-08-22] MEDS ORDERED: diphenhydrAMINE 25 MG CAP PO SCH (14:30)
[2020-08-22] MEDS ORDERED: Acetaminophen 500 MG TAB PO SCH (14:30)
[2020-08-22 17:15] VITALS: TEMP 98.6
[2020-08-22 19:35] VITALS: BP 106/52
[2020-08-22 22:04] LABS: #Basophils 0.1 thou/uL (0.0-0.2); #Eosinphils 0.2 thou/uL (0.0-0.7); #Lymphocytes 0.6 thou/uL (1.20-3.40); #Neutrophils 6.5 thou/uL (1.40-6.50); %Basophils 0.7 % (0.0-1.0); %Eosinophils 2.3 % (0.0-10.0); %Lymphocytes 6.9 % (21.0-51.0); %Monocytes 12.3 % (0.0-10.0); %Neutrophils 77.7 % (42.0-75.0); Hemoglobin 8.2 g/dL (14.0-18.0); Mean Corpuscular Hemoglobin 28.7 pg (27.0-31.0); Mean Corpuscular Volume 89.6 fL (78.0-98.0); Mean Platelet Volume 7.9 fL (7.4-10.4); Platelet Count 146 thou/uL (130-400); RBC Distribution Width 16.6 % (11.5-14.5); Red Blood Cell (RBC) Count 2.87 mill/uL (4.70-6.10); White Blood Cell (WBC) Count 8.4 thou/uL (4.8-10.8)
== END 2020-08-22 19:35 | disposition home or self-care (01) ==
LOC: ONC/OP 13:44
PROVIDERS: ATTEND Internal Medicine Hematology & Oncology
PROC: 30233N1 Transfusion of Nonautologous Red Blood Cells into Peripheral Vein, Percutaneous Approach (ICD-10-PCS; principal; 2020-08-22)
DX: D64.9 Anemia, unspecified (principal); D69.6 Thrombocytopenia, unspecified
CPT/HCPCS: 36430; 85025; 86850; 86900; 86901; J1940; P9016; Q0163

== ENCOUNTER 2020-08-29 09:57 | Inpatient (IN) | payer OTHER, BC ==
[2020-08-29] MEDS ORDERED: Ondansetron PF 4 MG/2 ML Vial ONE (10:18)
[2020-08-29] MEDS ORDERED: Morphine 10 MG/ML VIAL ONE (10:18)
[2020-08-29] MEDS ORDERED: Furosemide 40 MG/4 ML VIAL ONE (10:18)
[2020-08-29] MEDS ORDERED: Iopamidol-370 76% 500 ML 1 ML ONE (10:54)
[2020-08-29 10:56] LABS: Hemoglobin 9.3 g/dL (14.0-18.0); Mean Corpuscular HGB CONC 32.4 g/dL (32.0-36.0); Mean Corpuscular Hemoglobin 29.5 pg (27.0-31.0); Mean Corpuscular Volume 91.1 fL (78.0-98.0); Mean Platelet Volume 6.8 fL (7.4-10.4); Platelet Count 154 thou/uL (130-400); Red Blood Cell (RBC) Count 3.14 mill/uL (4.70-6.10); White Blood Cell (WBC) Count 8.7 thou/uL (4.8-10.8)
[2020-08-29 11:06] LABS: INR-International Normal Ratio 1.6; Prothrombin Time 19.3 sec (12.0-14.7)
[2020-08-29 11:07] LABS: PTT 45.1 sec (22.9-36.1)
[2020-08-29 11:17] LABS: Band 17 % (5-11); Eosinophils 1 % (0-10); Lymphocytes 1 % (21-51); MDiff Complete? YES; Monocytes 10 % (0-10); Neutrophil 71 % (42-75); Platelet Morphology Comment Appears Adequate; Polychromasia MODERATE = 3-4 cells (100X) (0-2/hpf)
[2020-08-29 11:23] LABS: ALT (SGPT) 77 U/L (8-55); AST (SGOT) 330 U/L (5-34); Albumin 2.4 g/dL (3.5-5.0); Alkaline Phosphatase 559 U/L (40-110); Anion Gap 20 mmol/L (10-20); BUN (Urea Nitrogen) 40 mg/dL (8.9-20.6); Bilirubin, Total 1.6 mg/dL (0.2-1.2); CK (CPK) 84 U/L (30-200); Calc. Creatinine Clearance 0 mL/min (70-130); Calcium 7.7 mg/dL (7.8-10.44); Carbon Dioxide 17 mmol/L (22-29); Chloride 97 mmol/L (98-107); Globulin 2.8 g/dL (2.4-3.5); Glucose 91 mg/dL (70-105); Lipase 10 U/L (8-78); Magnesium 1.8 mg/dL (1.6-2.6); Potassium 4.6 mmol/L (3.5-5.1); Protein, Total 5.2 g/dL (6.0-8.3); Sodium 129 mmol/L (136-145)
[2020-08-29 11:42] LABS: Bilirubin Negative (Negative); Blood, Urine Negative (Negative); Clarity Clear (Clear); Glucose, Urine (Dipstick) Normal (Negative); Ketone, Urine Negative (Negative); Leukocyte Negative Leu/uL (Negative); Nitrite Negative (Negative); Protein, Urine (Dipstick) 20 mg/dL (Neg-Trace); Specific Gravity, Urine 1.021 (1.002-1.036); Urobilinogen 3 mg/dL (Less than 2); pH, Urine 5.5 (5.0-9.0)
[2020-08-29] MEDS ORDERED: Senokot S 8.6-50 MG TAB PO PRN (13:06)
[2020-08-29] MEDS ORDERED: Calcium Carbonate 500 MG ChewTAB PO PRN (13:06)
[2020-08-29] MEDS ORDERED: Pantoprazole 40 MG VIAL IVP SCH (13:15)
[2020-08-29] MEDS ORDERED: Sodium Chloride 0.9% 1,000 ML IV SCH (13:15)
[2020-08-29] MEDS ORDERED: Zolpidem Tartrate 5 MG TAB PO PRN (13:16)
[2020-08-29] MEDS ORDERED: Sodium Chloride 0.9% (PF) 10 ML VIAL FS PRN (13:30)
--- NOTE | 2020-08-29 14:10 | RAD ---
CHEST 1 VIEW: HISTORY: Abdominal pain, shortness of breath, abdominal distention, vomiting. COMPARISON: 08/16/2020. FINDINGS: There is some less than optimal inspiration with minimal increased markings in the right base and mil d right hemidiaphragm elevation. In the left base, there is a suggestion of some subtle interstitial and ground-glass opacity changes. This is nonspecific and could conceivably represent some subsegme ntal atelectasis, although very minimal early pneumonitis is a consideration. IMPRESSION: 1. Less than optimal inspiration with minimal increased markings in the right base and minimal right hemidiaphragm elevation. 2. Patchy interstitial and ground-glass opacity changes in the left lower lobe, nonspecific but rene y pneumonitis is a concern. Correlate with laboratory findings. POS: OFF
--- NOTE | 2020-08-29 14:26 | HP ---
PRIMARY CARE PHYSICIAN: LATASHA Delaney CHIEF COMPLAINT: Abdominal pain and distention. HISTORY OF PRESENT ILLNESS: The patient is a 44-year-old male with a past medical history significant for metastatic melanoma, currently on chemotherapy (Kaytruda), followed by Dr. Watson, hypertension, hyperlipidemia, and GERD, who presents to the emergency department for the above complaint. The patient reports worsening abdominal pain and distention for the past 2 months with associated swelling to his lower extremities, scrotum, and weight gain. The patient was discharged from our hospital on 08/17/20 with a similar chief complaint. The patient's discharge diagnoses included tumor lysis syndrome and HARPER. His HARPER improved with IV fluids and electrolyte replacement. In terms of his abdominal swelling and distention, GI was consulted and felt that the symptoms were related to his tumor burden. Bowel regimen was recommended. The patient reports that since his discharge, his symptoms have increasingly worsened. He reports that his abdominal pain is more focal to the right side of his abdomen, described as sharp, shooting pain, worse with deep breath. He reports associated nausea. He denies any vomiting, diarrhea, or constipation. No hematochezia/melena. He denies any dysuria or hematuria. He denies chest pain, heart palpitations, lightheadedness. He denies feeling short of breath, cough, or wheezing. He denies any recent illness. Denies fever or chills. He reports that he has been compliant on his medications since discharge; however, his oral Lasix has been ineffective for him. In the emergency department, the patient presented tachycardic with normal blood pressure, respirations, SpO2 sat, afebrile. EKG, sinus tachycardia, 103 beats per minute; no ST elevations. CT of the abdomen and pelvis basically showed worsening inflammation and swelling of his chronic conditions. No portal vein thrombosis or significant fluid. The patient was given 80 mg of Lasix, Zofran and will be admitted to the floor for further evaluation. PAST MEDICAL HISTORY: 1. Hypertension. 2. Hyperlipidemia. 3. Metastatic melanoma. 4. GERD. 5. Gout. PAST SURGICAL HISTORY: 1. Left shoulder skin biopsy, melanoma surgical excision (2014) 2. Left shoulder orthopedic surgery. SOCIAL HISTORY: The patient previously drank 2 to 3 liquor drinks per night; however, he quit in July of 2020. He is a former smoker, quit less than 10 years ago. He denies any history of any illicit drug use. He does not work. He lives with his family, and he is independent. FAMILY HISTORY: Contributory for lung cancer and ovarian cancer, dad and niece respectively. ALLERGIES: NO KNOWN DRUG ALLERGIES. HOME MEDICATIONS: 1. Omeprazole. 2. Pravastatin. 3. Ambien p.r.n. 4. Allopurinol. 5. Lasix p.r.n.. REVIEW OF SYSTEMS: All review of systems are negative, unless otherwise stated in the HPI. PHYSICAL EXAMINATION: VITAL SIGNS: Temperature 98.6 axillary, blood pressure 102/70, pulse 95, respirations 18, 97% on room air. CONSTITUTIONAL: The patient is tachycardic, appears uncomfortable, in no acute distress, nontoxic in appearance. HEAD: Atraumatic and normocephalic. EYES: PERRLA. Extraocular muscles are intact. Sclerae are nonicteric. NECK: Full range of motion. No cervical spinous tenderness. No cervical adenopathy. Trachea midline. ENT: Oropharynx is clear. Uvula midline. Tacky mucous membranes. No oral lesions. RESPIRATORY/CHEST: Respirations are clear and labored. Respiratory arrest with deep inhalation. No rhonchi, wheezes or rales. CARDIOVASCULAR: S1, S2 appreciated. Tachycardia. No murmurs, rubs or gallops. ABDOMEN: Taut, distended, mildly tender to palpation throughout. No guarding. No rigidity. Positive Bautista sign. Negative Rovsing sign. Distal bowel sounds. BACK: No central spinous tenderness. Right CVA tenderness, mild. EXTREMITIES: Full range of motion, normal strength, sensation intact. Palpable radial pulses. Lower extremities, significant swelling, 3 to 4+ pitting edema. No open lesions. Weak pedal pulses to palpation secondary to fluid swelling. Full range of motion. Sensation intact. Normal strength. NEUROLOGIC: GCS of 15. No focal motor deficits. Cranial nerves 2 through 12 intact. SKIN: Clean, dry, and intact. LABORATORY DATA AND DIAGNOSTICS: Reading dictation of the CT abdomen and pelvis and chest x-ray are pending. Basically, it showed no acute portal vein thrombosis and worsening of his chronic conditions. Sodium 129, potassium 4.6, chloride 97, carbon dioxide 17, BUN 40, creatinine 1.23, GFR 63, glucose 91, lactic acid 3.3 with repeat pending. Calcium 7.7, magnesium 1.8, total bilirubin 1.6, AST 330, ALT 77, alkaline phosphatase 559. CK 84. Albumin is 2.4. Lipase is 10. WBC is 8.7, hemoglobin 9.3, hematocrit 28.6, platelets 154. Coags; PT is 19.3, INR 1.6, APTT is 45.1. UA is basically unremarkable with 3 urobilinogen. IMPRESSION: 1. Anasarca, fluid volume overload. 2. Abdominal pain and distention. 3. Lactic acidosis. 4. History of melanoma with metastasis, on chemotherapy. 5. Hyponatremia, mild. 6. History of tumor lysis syndrome. 7. Gastroesophageal reflux disease. PLAN: This is a 44-year-old male presents for worsening abdominal distention and pain in the setting of remote metastatic melanoma on chemotherapy. The patient was recently discharge from our hospital on 08/17 for a similar chief complaint and was found to have tumor lysis syndrome and HARPER along with significant tumor burden to his liver and abdomen. GI recommended bowel regimen and the patient's HARPER improved with diuresis. Today, his abdominal pain is more focal to his right upper quadrant, which is unusual for him. CT of the abdomen just showed worsening of his chronic tumor burden and swelling in abdomen. The patient had a positive Bautista sign on examination, and worsening LFTs compared to last stay. We will order right upper quadrant ultrasound. We will continue to diurese with Lasix. We will fluid restrict 1500 mL. We will consult Oncology and Palliative Care. We will add Zofran p.r.n. In terms of his hyponatremia, mild at 129, likely due to fluid volume overload, we will forego osmolality studies. We will continue to diurese, fluid restrict with low-sodium diet. We will perform daily weights. Strict I's and O's. Repeat lactic acid pending. The patient has no WBC count, has been afebrile with no acute concerns for any infection. We will give 1 L of normal saline, gentle IV hydration and recheck repeat lactic acid. Lovenox for DVT prophylaxis. No SCD's for DVT prophylaxis. Protonix for GI prophylaxis. Code status full code. Medical power of estate attorney is his , Janette Segura and her number is [phone]. Discussed the case with attending physician, Dr. Donnelly. Job ID: [id number] MTDD
--- NOTE | 2020-08-29 16:55 | CT ---
CT ABDOMEN AND PELVIS WITH IV CONTRAST: 08/29/20 INDICATIONS: Abdominal pain. Melanoma with metastatic disease. Comparison made to recent noncontrast CT abdomen and pelvis 08/12/20 and a recent postcontrast CT abd omen and pelvis 07/01/20. FINDINGS: New left pleural effusion since the recent exam of 08/12/20. Small pericardial effusion is also noted today. Metastatic disease to the liver continues to progress when compared to recent exams. Left lobe of the liver is heterogeneous and enlarged consistent with diffuse metastatic involvement. Diffuse metastat ic involvement involving most of the right lobe of the liver with focal density in the posterior righ t lobe of the liver seen today. There continues to be evidence of portal vein thrombosis which has pr ogressed when compared to the prior contrasted CT of 07/01/20. Left portal vein thrombosis suspected at that time. There is no evidence of thrombus in the main portal vein. The left portal vein does n ot opacify today. The peripheral mid and right portal veins do show partial opacification. The extensive adenopathy in the upper abdomen continues to progress when compared to recent exam. Num erous abdominal lymph nodes are seen in the upper abdomen and mesentery. A large portal caval mass co ntinues to enlarge, now measuring up to 4.5 to 5.0 cm. A large hepatogastric mass continues to enlarg e measuring 4 to 5 cm today. Numerous other mesenteric and periaortic lymph nodes are noted. Small volume ascites in the mid abdomen and pelvis. Small bowel loops normal caliber. Colon unremarka ble. Aorta normal caliber. Kidneys unremarkable. Urinary bladder contracted. Osseous structures unrem arkable. IMPRESSION: 1. New left pleural effusion and pericardial effusion. 2. Continued progression of liver metastatic disease and abdominal adenopathy when compared to recent exams. 3. New small volume ascites in the abdomen and pelvis. 4. Portal vein thrombosis again noted. POS: AGW
[2020-08-29] MEDS: HYDROcodone/Acetaminophen 5/325 mg Tablet PO PRN (19:45)
[2020-08-29] MEDS: Furosemide 40 MG TAB PO SCH (22:11)
[2020-08-29] MEDS ORDERED: Morphine 2 MG/ML VIAL SLOW IVP SCH (23:00)
[2020-08-29] MEDS: Ondansetron PF 4 MG/2 ML Vial IVP PRN (23:17)
[2020-08-30] MEDS: Morphine 4 MG/ML VIAL SLOW IVP PRN ×7 (00:37→23:47)
[2020-08-30 05:13] LABS: Band 13 % (5-11); Hemoglobin 8.9 g/dL (14.0-18.0); Hypochromia SLIGHT = 6-15 cells (100X) (0-5/hpf); Lymphocytes 11 % (21-51); MDiff Complete? YES; Mean Corpuscular HGB CONC 31.4 g/dL (32.0-36.0); Mean Corpuscular Hemoglobin 28.6 pg (27.0-31.0); Monocytes 3 % (0-10); Neutrophil 73 % (42-75); Platelet Count 154 thou/uL (130-400); Platelet Morphology Comment Appears Adequate; RBC Distribution Width 18.6 % (11.5-14.5); Red Blood Cell (RBC) Count 3.12 mill/uL (4.70-6.10)
[2020-08-30 05:14] LABS: ALT (SGPT) 73 U/L (8-55); AST (SGOT) 283 U/L (5-34); Albumin 2.3 g/dL (3.5-5.0); Alkaline Phosphatase 541 U/L (40-110); Anion Gap 18 mmol/L (10-20); BUN (Urea Nitrogen) 44 mg/dL (8.9-20.6); Bilirubin, Total 1.6 mg/dL (0.2-1.2); Calc. Creatinine Clearance 104 mL/min (70-130); Calcium 7.5 mg/dL (7.8-10.44); Carbon Dioxide 19 mmol/L (22-29); Chloride 93 mmol/L (98-107); Globulin 2.7 g/dL (2.4-3.5); Glucose 88 mg/dL (70-105); Potassium 4.5 mmol/L (3.5-5.1); Sodium 125 mmol/L (136-145)
[2020-08-30] MEDS: HYDROcodone/Acetaminophen 5/325 mg Tablet PO PRN ×5 (06:20→21:44)
--- NOTE | 2020-08-30 07:54 | ULT ---
Sonogram right upper quadrant HISTORY: Right upper quadrant pain. Abnormal liver function tests. COMPARISON: CT abdomen 08/29/2020. FINDINGS: No stones are apparent within the gallbladder. Point tenderness over the gallbladder fossa is nonspecific in the absence of gallbladder distention and gallstones and with the presence of extensive liver disease. Common duct is 0.6 cm. Small amount of free fluid within the right upper quadrant. Very large heterogeneous hypoechoic mass occupying the left liver lobe and a portion of the anterior segment right liver lobe correlates with CT findings. 3.1 cm hypoechoic mass within the right liver lobe also correlates with that seen on CT exam. Multiple lobular masses at the central abdomen correlate with adenopathy on recent CT exam. While color and spectral Doppler flow are seen within the main portal vein, there is lack of flow wit hin the left portal vein. IMPRESSION : Confirmation of CT findings, including extensive metastatic disease of the liver and central abdomina l adenopathy. Thrombosis of left portal vein confirmed. Minimal ascites. No evidence of biliary obstruction.
[2020-08-30] MEDS: Allopurinol 100 MG TAB PO SCH (08:07)
[2020-08-30] MEDS: Furosemide 40 MG TAB PO SCH (08:07)
[2020-08-30] MEDS ORDERED: Morphine ER 30 MG TAB PO SCH (09:00)
[2020-08-30] MEDS ORDERED: Pantoprazole 40 MG VIAL IVP SCH (09:00)
[2020-08-30] MEDS ORDERED: Enoxaparin Sodium 40 MG/0.4 ML SYRINGE SC SCH (09:00)
[2020-08-30 12:52] LABS: SARS-CoV-2 MS2 Positive; SARS-CoV-2 N Gene Negative; SARS-CoV-2 S Gene Negative; SARS-CoV-2 by NAA Not Detected (NotDetected); SARS-CoV-2 orf1ab Negative
--- NOTE | 2020-08-30 13:55 | PDOC.HOSPP ---
- Subjective Encounter Date: 08/30/20 Encounter Time: 12:00 Subjective: c/o abd distention, lower extre edema no sob - Objective Vital Signs & Weight: Vital Signs (12 hours) Temp Pulse Resp BP Pulse Ox 08/30/20 07:50 97 08/30/20 07:43 98.1 F 100 18 123/72 97 08/30/20 04:00 98.3 F 104 H 16 121/70 94 L Weight Weight 240 lb 8 oz I&O: 08/29/20 08/30/20 08/31/20 06:59 06:59 06:59 Intake Total 1010 Output Total 250 Balance 760 Result Diagrams: 08/30/20 04:20 08/30/20 04:20 Hospitalist ROS - Medication Medications: Active Medications Generic Name Dose Route Start Last Admin Trade Name Freq PRN Reason Stop Dose Admin Hydrocodone Bitart/Acetaminophen 1 tab 08/29/20 19:28 08/30/20 10:15 Hydrocodone/Acetaminophen 5/325 Mg Tablet PO 1 tab Q4H PRN Administration Moderate to Severe Pain (6-10) Allopurinol 200 mg 08/30/20 09:00 08/30/20 08:07 Allopurinol 100 Mg Tab PO 200 mg DAILY TIEN Administration Enoxaparin Sodium 40 mg 08/30/20 09:00 08/30/20 08:09 Enoxaparin Sodium 40 Mg/0.4 Ml Syringe SC 40 mg 0900 TIEN Administration Morphine Sulfate 4 mg 08/30/20 00:18 08/30/20 11:44 Morphine 4 Mg/Ml Vial SLOW IVP 4 mg Q4H PRN Administration Severe Pain (7-10) Ondansetron HCl 4 mg 08/29/20 13:06 08/29/20 23:17 Ondansetron Pf 4 Mg/2 Ml Vial IVP 4 mg Q6H PRN Administration Nausea/Vomiting - Exam General Appearance: awake alert, ill appearing Eye: PERRL, anicteric sclera ENT: no oropharyngeal lesions, moist mucosa Neck: supple, no JVD Heart: RRR, no murmur Respiratory: no wheezes, no ronchi, rales Gastrointestinal: normal bowel sounds, tender to palpation, distended Extremities: no cyanosis, 2+ LE edema Skin: normal turgor, no rashes Neurological: cranial nerve grossly intact, no focal deficits Psychiatric: normal affect, A&O x 3 Hosp A/P (1) Abdominal pain Code(s): R10.9 - UNSPECIFIED ABDOMINAL PAIN Status: Acute (2) Malignant melanoma, metastatic Code(s): C79.9 - SECONDARY MALIGNANT NEOPLASM OF UNSPECIFIED SITE Status: Acute (3) Liver metastases Code(s): C78.7 - SECONDARY MALIG NEOPLASM OF LIVER AND INTRAHEPATIC BILE DUCT Status: Acute (4) Portal vein thrombosis Code(s): I81 - PORTAL VEIN THROMBOSIS Status: Acute (5) GERD (gastroesophageal reflux disease) Code(s): K21.9 - GASTRO-ESOPHAGEAL REFLUX DISEASE WITHOUT ESOPHAGITIS Status: Chronic Qualifiers: Esophagitis presence: esophagitis presence not specified Qualified Code(s): K21.9 - Gastro-esophageal reflux disease without esophagitis (6) Hyperlipidemia Code(s): E78.5 - HYPERLIPIDEMIA, UNSPECIFIED Status: Chronic Qualifiers: Hyperlipidemia type: unspecified Qualified Code(s): E78.5 - Hyperlipidemia, unspecified (7) Hypertension Code(s): I10 - ESSENTIAL (PRIMARY) HYPERTENSION Status: Chronic Qualifiers: Hypertension type: essential hypertension Qualified Code(s): I10 - Essenti al (primary) hypertension (8) Obesity (BMI 30.0-34.9) Code(s): E66.9 - OBESITY, UNSPECIFIED Status: Chronic - Plan has diffuse anasarca with increasing abd wall and lower extre edema lasix iv q12h, watch for renal function has metastatic melanoma on keytruda prognosis guarded ms contin, morphine iv prn for breakthrough pain palliative care for code status encourage po intake as tolerated oniel hose for LE edema eliquis for portal vein thrombosis, ptt is around 40, PT around 19, watch for bleeding, gfr 57
[2020-08-30] MEDS: Furosemide 40 MG/4 ML VIAL SLOW IVP SCH (14:00)
[2020-08-30] MEDS: Ondansetron PF 4 MG/2 ML Vial IVP PRN ×2 (14:34→20:45)
[2020-08-30] MEDS: Morphine ER 30 MG TAB PO SCH ×2 (15:06→20:45)
--- NOTE | 2020-08-30 19:24 | CON ---
DATE OF CONSULTATION: REASON FOR CONSULT: Metastatic melanoma. HISTORY OF PRESENT ILLNESS: Mr. Segura is a pleasant 44-year-old gentleman with metastatic melanoma. He was diagnosed with recurrent melanoma in his liver and cauda equina in July 2020. He was started on the immune checkpoint inhibitor, Keytruda. He has received two doses. After his first dose, he had tumor lysis with acute kidney injury. He was hospitalized in this facility for a week and was discharged on the . He was given numerous bags of saline for hydration and was discharged on Lasix for his fluid overload. He presented to the clinic yesterday with worsening abdominal discomfort. He was distended, in clear distress. He does take morphine b.i.d. which normally controls his pain. He states he had a couple of diarrhea stools over the last few days, but nothing more than that. He had hyperactive bowel sounds. On exam, he was also distended and tender. He was sent to the emergency room for evaluation. Here, they performed a CT scan of the abdomen and pelvis. There was continued progression in the liver and abdominal adenopathy. There was a new left pleural effusion and pericardial effusion. The patient was seen at bedside. He continues to have low back pain. He feels constipated and thirsty. He continues on Lasix and morphine. PAST MEDICAL HISTORY: 1. Recurrent metastatic melanoma. 2. 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 3. Hypertension. 4. Hyperlipidemia. 5. GERD. PAST SURGICAL HISTORY: 1. Shoulder surgery. 2. Melanoma resection in 2012. ALLERGIES: NO KNOWN DRUG ALLERGIES. HOME MEDICATIONS: 1. Nexium. 2. Hydrochlorothiazide. 3. Lisinopril. 4. Naproxen. 5. Pravastatin. 6. Ambien. 7. Tramadol. 8. Allopurinol. 9. Lasix. 10. Midodrine. 11. MS Contin. 12. Potassium chloride. 13. Senokot. 14. Dulcolax. FAMILY HISTORY: Noncontributory. SOCIAL HISTORY: , has 2 children, lives with his spouse. No alcohol, tobacco, or illicit drug use. REVIEW OF SYSTEMS: A 12-point review of systems is negative except for noted in HPI. PHYSICAL EXAMINATION: VITAL SIGNS: Temperature 98.1, pulse is 100, respiratory rate 18, BP is 123/72. He is 97% on room air. GENERAL: This is a well-developed, well-nourished male, in mild distress. HEENT: Normocephalic and atraumatic. Pupils are equal and reactive to light. NECK: Supple. CV: Regular rate and rhythm. He is tachycardic. LUNGS: Clear anterior. ABDOMEN: Distended with palpable liver, active bowel sounds. EXTREMITIES: 2+ bilateral lower extremity edema. SKIN: No rash. HEMATOLOGICAL: No petechiae or purpura. NEUROLOGICAL: Nonfocal. PERTINENT LABORATORY DATA AND X-RAYS: WBCs 10, hemoglobin 8.9, hematocrit 28.4, platelet count is 154,000. 73% neutrophils, 13% bands, 11% lymphocytes. PT is 19.3, INR is 1.6, PTT is 45.1. Sodium 125, potassium 4.5, chloride 93, CO2 is 19, BUN is 44, creatinine 1.35, lactic acid 3, calcium 7.5. Bilirubin 1.6, AST is 283, ALT is 73, alkaline phosphatase is 541. Serum total protein is 5, albumin 2.3, globulin 2.7. COVID PCR negative. ASSESSMENT: 1. Metastatic melanoma with liver mets. 2. Intractable abdominal discomfort. 3. History of hepatic vein tumor thrombus. DISCUSSION: The patient has received 2 cycles of Keytruda immunotherapy, his last dose was on August 21. His CT scan shows progression of disease, although it is unclear if this is pseudoprogression consistent with initiation of an immune checkpoint inhibitor. Regardless, he is in pain. We will adjust his MS Contin to three times daily. Resume his bowel regimen with Senokot, MiraLAX, and Colace. Continue gentle diuresis. Hopefully, once his pain is improved, he can go home to follow up in the clinic with Dr. Watson as scheduled. Thank you for the consult. Job ID: [id number] MTDD
[2020-08-30] MEDS: Docusate 100 MG CAP PO SCH (20:44)
[2020-08-30] MEDS: Senokot 8.6 MG TAB PO SCH (20:44)
[2020-08-30] MEDS: Apixaban 5 MG TAB PO SCH (20:44)
[2020-08-30] MEDS: Ondansetron ODT 4 MG TAB PO PRN (23:52)
[2020-08-31] MEDS: HYDROcodone/Acetaminophen 5/325 mg Tablet PO PRN ×5 (01:45→23:51)
[2020-08-31] MEDS: Ondansetron PF 4 MG/2 ML Vial IVP PRN ×2 (03:36→09:03)
[2020-08-31] MEDS: Morphine 4 MG/ML VIAL SLOW IVP PRN ×3 (03:36→20:31)
[2020-08-31] MEDS: Furosemide 40 MG/4 ML VIAL SLOW IVP SCH ×2 (05:52→13:28)
[2020-08-31] MEDS: Ondansetron ODT 4 MG TAB PO PRN (08:16)
[2020-08-31] MEDS: Apixaban 5 MG TAB PO SCH ×2 (08:53→20:30)
[2020-08-31] MEDS: Docusate 100 MG CAP PO SCH ×2 (08:53→20:30)
[2020-08-31] MEDS: Allopurinol 100 MG TAB PO SCH (08:53)
[2020-08-31] MEDS: Morphine ER 30 MG TAB PO SCH ×3 (08:54→20:31)
[2020-08-31] MEDS: Polyethylene Glycol 3350 17 GM Packet PO SCH (08:55)
[2020-08-31] MEDS: Senokot 8.6 MG TAB PO SCH ×2 (08:55→20:30)
[2020-08-31 10:34] LABS: #Eosinphils 0.1 thou/uL (0.0-0.7); #Lymphocytes 0.5 thou/uL (1.20-3.40); #Monocytes 0.9 thou/uL (0.11-0.59); #Neutrophils 8.5 thou/uL (1.40-6.50); %Basophils 0.2 % (0.0-1.0); %Eosinophils 1.2 % (0.0-10.0); %Lymphocytes 5.1 % (21.0-51.0); %Monocytes 8.6 % (0.0-10.0); %Neutrophils 84.9 % (42.0-75.0); Hemoglobin 8.9 g/dL (14.0-18.0); Mean Corpuscular HGB CONC 31.9 g/dL (32.0-36.0); Mean Corpuscular Hemoglobin 28.9 pg (27.0-31.0); Mean Corpuscular Volume 90.6 fL (78.0-98.0); Mean Platelet Volume 6.8 fL (7.4-10.4); Platelet Count 139 thou/uL (130-400); RBC Distribution Width 18.1 % (11.5-14.5); Red Blood Cell (RBC) Count 3.07 mill/uL (4.70-6.10)
[2020-08-31 10:53] LABS: ALT (SGPT) 61 U/L (8-55); AST (SGOT) 229 U/L (5-34); Albumin 2.3 g/dL (3.5-5.0); Alkaline Phosphatase 514 U/L (40-110); Anion Gap 19 mmol/L (10-20); BUN (Urea Nitrogen) 49 mg/dL (8.9-20.6); Bilirubin, Total 1.6 mg/dL (0.2-1.2); Calc. Creatinine Clearance 71 mL/min (70-130); Calcium 7.6 mg/dL (7.8-10.44); Carbon Dioxide 20 mmol/L (22-29); Chloride 93 mmol/L (98-107); Globulin 2.8 g/dL (2.4-3.5); Glucose 90 mg/dL (70-105); Potassium 4.6 mmol/L (3.5-5.1); Protein, Total 5.1 g/dL (6.0-8.3); Sodium 127 mmol/L (136-145)
[2020-08-31] MEDS ORDERED: Bismuth Subs 17.5 mg/mL Susp PO PRN ×2 (12:49→16:42)
[2020-08-31] MEDS ORDERED: Albumin 25% 25 GM/100 ML BOT IVPB SCH (13:00)
--- NOTE | 2020-08-31 13:00 | PDOC.HOSPP ---
- Subjective Encounter Date: 08/31/20 Encounter Time: 12:30 Subjective: has one episode of vomiting, abd pain is slightly better is wearing oniel hose, it doesn't fit beyond his knees due to size no sob - Objective Vital Signs & Weight: Vital Signs (12 hours) Temp Pulse Resp BP Pulse Ox 08/31/20 08:00 97.7 F 105 H 20 118/71 97 Weight Weight 239 lb 12.8 oz I&O: 08/30/20 08/31/20 09/01/20 06:59 06:59 06:59 Intake Total 1010 1480 Output Total 250 800 Balance 760 680 Result Diagrams: 08/31/20 10:22 08/31/20 10:22 Hospitalist ROS - Medication Medications: Active Medications Generic Name Dose Route Start Last Admin Trade Name Freq PRN Reason Stop Dose Admin Hydrocodone Bitart/Acetaminophen 1 tab 08/29/20 19:28 08/31/20 10:27 Hydrocodone/Acetaminophen 5/325 Mg Tablet PO 1 tab Q4H PRN Administration Moderate to Severe Pain (6-10) Allopurinol 200 mg 08/30/20 09:00 08/31/20 08:53 Allopurinol 100 Mg Tab PO 200 mg DAILY TIEN Administration Apixaban 5 mg 08/30/20 21:00 08/31/20 08:53 Apixaban 5 Mg Tab PO 5 mg BID TIEN Administration Calcium Carbonate 1,000 mg 08/29/20 13:06 08/31/20 09:11 Calcium Carbonate 500 Mg Chewtab PO 1,000 mg Q4H PRN Administration Heartburn or Indigestion Docusate Sodium 100 mg 08/30/20 21:00 08/31/20 08:53 Docusate 100 Mg Cap PO 100 mg BID TIEN Administration Furosemide 40 mg 08/30/20 14:00 08/31/20 05:52 Furosemide 40 Mg/4 Ml Vial SLOW IVP 40 mg 0600,1400 TIEN Administration Morphine Sulfate 4 mg 08/30/20 00:18 08/31/20 09:05 Morphine 4 Mg/Ml Vial SLOW IVP 4 mg Q4H PRN Administration Severe Pain (7-10) Morphine Sulfate 30 mg 08/30/20 15:00 08/31/20 08:54 Morphine Er 30 Mg Tab PO 30 mg TID TIEN Administration Ondansetron HCl 4 mg 08/29/20 13:06 08/31/20 08:16 Ondansetron Odt 4 Mg Tab PO 4 mg Q6H PRN Administration Nausea/Vomiting Ondansetron HCl 4 mg 08/29/20 13:06 08/31/20 09:03 Ondansetron Pf 4 Mg/2 Ml Vial IVP 4 mg Q6H PRN Administration Nausea/Vomiting Pantoprazole Sodium 40 mg 08/31/20 09:00 08/31/20 08:55 Pantoprazole 40 Mg Tab PO 40 mg DAILY TIEN Administration Polyethylene Glycol 17 gm 08/31/20 09:00 08/31/20 08:55 Polyethylene Glycol 3350 17 Gm Packet PO 17 gm DAILY TIEN Administration Senna 2 tab 08/30/20 21:00 08/31/20 08:55 Senokot 8.6 Mg Tab PO 2 tab BID TIEN Administration Sodium Chloride 10 ml 08/29/20 13:06 08/30/20 14:34 Flush - Normal Saline 10 Ml Syringe IVF 10 ml PRN PRN Administration Saline Flush - Exam General Appearance: awake alert Eye: PERRL, anicteric sclera ENT: no oropharyngeal lesions, moist mucosa Neck: supple, no JVD Heart: RRR, no murmur Respiratory: no wheezes, no rales Gastrointestinal: soft, normal bowel sounds, tender to palpation, distended Extremities: no cyanosis, 2+ LE edema Neurological: cranial nerve grossly intact, no focal deficits Psychiatric: normal affect, A&O x 3 Hosp A/P (1) Abdominal pain Code(s): R10.9 - UNSPECIFIED ABDOMINAL PAIN Status: Acute Qualifiers: Abdominal location: generalized Qualified Code(s): R10.84 - Generalized abdominal pain (2) Malignant melanoma, metastatic Code(s): C79.9 - SECONDARY MALIGNANT NEOPLASM OF UNSPECIFIED SITE Status: Acute (3) Liver metastases Code(s): C78.7 - SECONDARY MALIG NEOPLASM OF LIVER AND INTRAHEPATIC BILE DUCT Status: Acute (4) Portal vein thrombosis Code(s): I81 - PORTAL VEIN THROMBOSIS Status: Acute (5) GERD (gastroesophageal reflux disease) Code(s): K21.9 - GASTRO-ESOPHAGEAL REFLUX DISEASE WITHOUT ESOPHAGITIS Status: Chronic Qualifiers: Esophagitis presence: esophagitis presence not specified Qualified Code(s): K21.9 - Gastro-esophageal reflux disease without esophagitis (6) Hyperlipidemia Code(s): E78.5 - HYPERLIPIDEMIA, UNSPECIFIED Status: Chronic Qualifiers: Hyperlipidemia type: unspecified Qualified Code(s): E78.5 - Hyperlipidemia, unspecified (7) Hypertension Code(s): I10 - ESSENTIAL (PRIMARY) HYPERTENSION Status: Chronic Qualifiers: Hypertension type: essential hypertension Qualified Code(s): I10 - E ssential (primary) hypertension (8) Obesity (BMI 30.0-34.9) Code(s): E66.9 - OBESITY, UNSPECIFIED Status: Chronic (9) Anasarca Code(s): R60.1 - GENERALIZED EDEMA Status: Acute (10) Hypoalbuminemia Code(s): E88.09 - OTH DISORDERS OF PLASMA-PROTEIN METABOLISM, NEC Status: Acute - Plan has diffuse anasarca with abd wall and lower extre edema lasix iv q12h, watch for renal function, may scale back lasix to oral in am, albumin iv infusions x 4. has metastatic melanoma on keytruda prognosis guarded ms contin, morphine iv prn for breakthrough pain palliative care for code status encourage po intake as tolerated oniel reynolds for LE edema eliquis for portal vein thrombosis, ptt is around 40, PT around 19, watch for bleeding
[2020-08-31] MEDS ORDERED: Promethazine HCl 25 MG in Sodium Chloride 0.9% 50 ML IVPB PRN (13:04)
[2020-08-31] MEDS: Albumin 25% 25 GM/100 ML BOT IVPB SCH ×2 (14:56→20:55)
[2020-08-31] MEDS: Bismuth Subs 17.5 mg/mL Susp PO PRN (19:45)
[2020-08-31] MEDS: Bisacodyl 5 MG TAB PO PRN (20:30)
[2020-09-01] MEDS: Albumin 25% 25 GM/100 ML BOT IVPB SCH ×5 (03:04→21:13)
[2020-09-01 04:50] LABS: INR-International Normal Ratio 1.7; PTT 50.5 sec (22.9-36.1); Prothrombin Time 20.3 sec (12.0-14.7)
[2020-09-01] MEDS: Furosemide 40 MG/4 ML VIAL SLOW IVP SCH (05:12)
[2020-09-01 05:25] LABS: ALT (SGPT) 57 U/L (8-55); AST (SGOT) 207 U/L (5-34); Albumin 2.8 g/dL (3.5-5.0); Alkaline Phosphatase 443 U/L (40-110); Anion Gap 22 mmol/L (10-20); BUN (Urea Nitrogen) 47 mg/dL (8.9-20.6); Bilirubin, Total 1.8 mg/dL (0.2-1.2); Calc. Creatinine Clearance 72 mL/min (70-130); Calcium 7.6 mg/dL (7.8-10.44); Carbon Dioxide 17 mmol/L (22-29); Chloride 92 mmol/L (98-107); Globulin 2.4 g/dL (2.4-3.5); Glucose 71 mg/dL (70-105); Potassium 4.6 mmol/L (3.5-5.1); Protein, Total 5.2 g/dL (6.0-8.3); Sodium 126 mmol/L (136-145)
[2020-09-01 05:36] LABS: #Eosinphils 0.1 thou/uL (0.0-0.7); #Lymphocytes 0.6 thou/uL (1.20-3.40); #Monocytes 0.9 thou/uL (0.11-0.59); #Neutrophils 7.1 thou/uL (1.40-6.50); %Basophils 0.3 % (0.0-1.0); %Eosinophils 1.6 % (0.0-10.0); %Lymphocytes 7.3 % (21.0-51.0); %Monocytes 9.9 % (0.0-10.0); %Neutrophils 80.9 % (42.0-75.0); Anisocytosis MODERATE=16-30 cells (100X) (0-5/hpf); Hemoglobin 7.8 g/dL (14.0-18.0); MDiff Complete? YES; Mean Corpuscular HGB CONC 31.8 g/dL (32.0-36.0); Mean Corpuscular Hemoglobin 29.2 pg (27.0-31.0); Mean Corpuscular Volume 91.8 fL (78.0-98.0); Mean Platelet Volume 6.9 fL (7.4-10.4); Platelet Count 114 thou/uL (130-400); Platelet Morphology Comment Appears Decreased; RBC Distribution Width 18.7 % (11.5-14.5); Red Blood Cell (RBC) Count 2.67 mill/uL (4.70-6.10); White Blood Cell (WBC) Count 8.8 thou/uL (4.8-10.8)
[2020-09-01] MEDS: Bismuth Subs 17.5 mg/mL Susp PO PRN ×2 (09:35→19:17)
[2020-09-01] MEDS: Senokot 8.6 MG TAB PO SCH ×2 (09:37→21:14)
[2020-09-01] MEDS: Morphine ER 30 MG TAB PO SCH ×3 (09:37→21:14)
[2020-09-01] MEDS: Apixaban 5 MG TAB PO SCH ×2 (09:37→21:14)
[2020-09-01] MEDS: Allopurinol 100 MG TAB PO SCH (09:37)
[2020-09-01] MEDS: Docusate 100 MG CAP PO SCH ×2 (09:37→21:13)
[2020-09-01] MEDS: Polyethylene Glycol 3350 17 GM Packet PO SCH (09:38)
[2020-09-01] MEDS: Ondansetron PF 4 MG/2 ML Vial IVP PRN ×2 (09:38→21:16)
--- NOTE | 2020-09-01 11:11 | EKG ---
Test Reason : Blood Pressure : / mmHG Vent. Rate : 103 BPM Atrial Rate : 103 BPM P-R Int : 160 ms QRS Dur : 098 ms QT Int : 384 ms P-R-T Axes : 037 014 052 degrees QTc Int : 503 ms Sinus tachycardia Possible Left atrial enlargement Borderline ECG Confirmed by LEONARDO ZAIDI DO ([id number]), supervising editor news reel YEFRI VALLES ([id number]) on 09/01/2020 11:11:31 AM Referred By: Confirmed By:LEONARDO ZAIDI DO
[2020-09-01] MEDS: Bisacodyl 5 MG TAB PO PRN ×2 (12:59→21:14)
--- NOTE | 2020-09-01 14:31 | PDOC.HOSPP ---
- Subjective Encounter Date: 09/01/20 Encounter Time: 10:30 Subjective: pt up in bed no complains - Objective Vital Signs & Weight: Vital Signs (12 hours) Temp Pulse Resp BP Pulse Ox 09/01/20 07:21 98.7 F 100 16 101/60 96 Weight Admit Weight 238 lb Weight 241 lb 2 oz I&O: 08/31/20 09/01/20 09/02/20 06:59 06:59 06:59 Intake Total 1480 1862 Output Total 800 1875 Balance 680 -13 Result Diagrams: 09/01/20 04:31 09/01/20 04:31 Hospitalist ROS - Review of Systems Cardiovascular: denies: chest pain, palpitations, orthopnea, paroxysmal noc. dyspnea, edema, light headedness, other Gastrointestinal: denies: nausea, vomiting, abdominal pain, diarrhea, constipa tion, melena, hematochezia, other Genitourinary: denies: dysuria, frequency, incontinence, hematuria, retention, other - Medication Medications: Active Medications Generic Name Dose Route Start Last Admin Trade Name Freq PRN Reason Stop Dose Admin Hydrocodone Bitart/Acetaminophen 1 tab 08/29/20 19:28 08/31/20 23:51 Hydrocodone/Acetaminophen 5/325 Mg Tablet PO 1 tab Q4H PRN Administration Moderate to Severe Pain (6-10) Albumin Human 25 gm 09/01/20 09:30 09/01/20 09:40 Albumin 25% 25 Gm/100 Ml Bot IVPB 09/01/20 21:31 25 gm Q6H TIEN Administration Allopurinol 200 mg 08/30/20 09:00 09/01/20 09:37 Allopurinol 100 Mg Tab PO 200 mg DAILY TIEN Administration Apixaban 5 mg 08/30/20 21:00 09/01/20 09:37 Apixaban 5 Mg Tab PO 5 mg BID TIEN Administration Bisacodyl 10 mg 08/29/20 13:06 09/01/20 12:59 Bisacodyl 5 Mg Tab PO 10 mg DAILYPRN PRN Administration Constipation Bismuth Subsalicylate 262.5 mg 08/31/20 17:59 09/01/20 09:35 Bismuth Subs 17.5 Mg/Ml Susp PO 262.5 mg Q6H PRN Administration .GASTRITIS Calcium Carbonate 1,000 mg 08/29/20 13:06 08/31/20 09:11 Calcium Carbonate 500 Mg Chewtab PO 1,000 mg Q4H PRN Administration Heartburn or Indigestion Docusate Sodium 100 mg 08/30/20 21:00 09/01/20 09:37 Docusate 100 Mg Cap PO 100 mg BID TIEN Administration Promethazine HCl 25 mg/ Sodium 51 mls @ 204 mls/hr 08/31/20 13:04 08/31/20 14:37 Chloride IVPB 51 mls Q6H PRN Administration Nausea/Vomiting Morphine Sulfate 4 mg 08/30/20 00:18 08/31/20 20:31 Morphine 4 Mg/Ml Vial SLOW IVP 4 mg Q4H PRN Administration Severe Pain (7-10) Morphine Sulfate 30 mg 08/30/20 15:00 09/01/20 09:37 Morphine Er 30 Mg Tab PO 30 mg TID TINE Administration Ondansetron HCl 4 mg 08/29/20 13:06 08/31/20 08:16 Ondansetron Odt 4 Mg Tab PO 4 mg Q6H PRN Administration Nausea/Vomiting Ondansetron HCl 4 mg 08/29/20 13:06 09/01/20 09:38 Ondansetron Pf 4 Mg/2 Ml Vial IVP 4 mg Q6H PRN Administration Nausea/Vomiting Pantoprazole Sodium 40 mg 08/31/20 09:00 09/01/20 09:37 Pantoprazole 40 Mg Tab PO 40 mg DAILY TIEN Administration Polyethylene Glycol 17 gm 08/31/20 09:00 09/01/20 09:38 Polyethylene Glycol 3350 17 Gm Packet PO 17 gm DAILY TIEN Administration Senna 2 tab 08/30/20 21:00 09/01/20 09:37 Senokot 8.6 Mg Tab PO 2 tab BID TIEN Administration Sodium Chloride 10 ml 08/29/20 13:06 09/01/20 05:12 Flush - Normal Saline 10 Ml Syringe IVF 10 ml PRN PRN Administration Saline Flush - Exam Neck: negative: supple, symmetric, no JVD, no thyromegaly, no lymphadenopathy, no carotid bruit, JVD Heart: negative: RRR, no murmur, no gallops, no rubs, normal peripheral pulses, irregular, diminshed peripheral pulses, murmur present, II/IV, III/IV Respiratory: negative: CTAB, no wheezes, no rales, no ronchi, normal chest expansion, no tachypnea, normal percussion, rales, rhonchi, tachypneic, wheezes Hosp A/P - Plan (1) Abdominal pain Code(s): R10.9 - UNSPECIFIED ABDOMINAL PAIN Status: Acute Qualifiers: Abdominal location: generalized Qualified Code(s): R10.84 - Generalized abdominal pain (2) Malignant melanoma, metastatic Code(s): C79.9 - SECONDARY MALIGNANT NEOPLASM OF UNSPECIFIED SITE Status: Ac [place] (3) Liver metastases Code(s): C78.7 - SECONDARY MALIG NEOPLASM OF LIVER AND INTRAHEPATIC BILE DUCT Status: Acute (4) Portal vein thrombosis Code(s): I81 - PORTAL VEIN THROMBOSIS Status: Acute (5) GERD (gastroesophageal reflux disease) Code(s): K21.9 - GASTRO-ESOPHAGEAL REFLUX DISEASE WITHOUT ESOPHAGITIS Status: Chronic Qualifiers: Esophagitis presence: esophagitis presence not specified Qualified Code(s): K21.9 - Gastro-esophageal reflux disease without esophagitis (6) Hyperlipidemia Code(s): E78.5 - HYPERLIPIDEMIA, UNSPECIFIED Status: Chronic Qualifiers: Hyperlipidemia type: unspecified Qualified Code(s): E78.5 - Hyperlipidemia, unspecified (7) Hypertension Code(s): I10 - ESSENTIAL (PRIMARY) HYPERTENSION Status: Chronic Qualifiers: Hypertension type: essential hypertension Qualified Code(s): I10 - Essential (primary) hypertension (8) Obesity (BMI 30.0-34.9) Code(s): E66.9 - OBESITY, UNSPECIFIED Status: Chronic (9) Anasarca Code(s): R60.1 - GENERALIZED EDEMA Status: Acute (10) Hypoalbuminemia Code(s): E88.09 - OTH DISORDERS OF PLASMA-PROTEIN METABOLISM, NEC Status: Acute - Plan has diffuse anasarca with abd wall and lower extre edema lasix iv q12h, watch for renal function, may scale back lasix to oral in am, albumin iv infusions x 4. has metastatic melanoma on keytruda prognosis guarded ms contin, morphine iv prn for breakthrough pain palliative care for code status encourage po intake as tolerated oniel hose for LE edema eliquis for portal vein thrombosis, ptt is around 40, PT around 19, watch for bleeding 1/2 will stop lasix and see how his bmp is elham. will continue albumin. He was encouraged to eat. will add ensure. updated pt's today. will continue eliquis for portal vein thrombosis. Nurse asked to give pt laxative since he has not had a bowel movement.
[2020-09-01] MEDS: HYDROcodone/Acetaminophen 5/325 mg Tablet PO PRN (19:07)
[2020-09-02] MEDS: Bismuth Subs 17.5 mg/mL Susp PO PRN (04:17)
[2020-09-02 04:30] LABS: Anion Gap 20 mmol/L (10-20); BUN (Urea Nitrogen) 46 mg/dL (8.9-20.6); Calc. Creatinine Clearance 84 mL/min (70-130); Calcium 7.8 mg/dL (7.8-10.44); Carbon Dioxide 17 mmol/L (22-29); Chloride 94 mmol/L (98-107); Glucose 64 mg/dL (70-105); Potassium 4.3 mmol/L (3.5-5.1); Sodium 127 mmol/L (136-145)
[2020-09-02] MEDS: Docusate 100 MG CAP PO SCH ×2 (08:36→21:28)
[2020-09-02] MEDS: Allopurinol 100 MG TAB PO SCH (08:36)
[2020-09-02] MEDS: Senokot 8.6 MG TAB PO SCH ×2 (08:36→21:28)
[2020-09-02] MEDS: Furosemide 40 MG TAB PO SCH (08:37)
[2020-09-02] MEDS: Polyethylene Glycol 3350 17 GM Packet PO SCH (08:37)
[2020-09-02] MEDS: Morphine ER 30 MG TAB PO SCH ×3 (08:37→21:29)
[2020-09-02] MEDS: Apixaban 5 MG TAB PO SCH ×2 (08:37→21:28)
[2020-09-02] MEDS: Ondansetron PF 4 MG/2 ML Vial IVP PRN (08:41)
[2020-09-02] MEDS ORDERED: Polyethylene Glycol 3350 17 GM Packet PO PRN (09:37)
[2020-09-02] MEDS ORDERED: Albumin 25% 25 GM/100 ML BOT IVPB SCH (13:30)
[2020-09-02] MEDS: Bisacodyl 5 MG TAB PO PRN (15:31)
--- NOTE | 2020-09-02 16:10 | PDOC.HOSPP ---
- Subjective Encounter Date: 09/02/20 Encounter Time: 12:30 Subjective: pt up in bed no complains - Objective Vital Signs & Weight: Vital Signs (12 hours) Temp Pulse Resp BP Pulse Ox 09/02/20 08:51 98.4 F 111 H 18 118/65 95 Weight Admit Weight 238 lb Weight 241 lb 2 oz I&O: 09/01/20 09/02/20 09/03/20 06:59 06:59 06:59 Intake Total 1862 1670 Output Total 1875 1325 Balance -13 345 Result Diagrams: 09/01/20 04:31 09/02/20 04:00 Hospitalist ROS - Review of Systems Cardiovascular: denies: chest pain, palpitations, orthopnea, paroxysmal noc. dyspnea, edema, light headedness, other Gastrointestinal: denies: nausea, vomiting, abdominal pain, diarrhea, const ipation, melena, hematochezia, other Genitourinary: denies: dysuria, frequency, incontinence, hematuria, retention, other - Medication Medications: Active Medications Generic Name Dose Route Start Last Admin Trade Name Freq PRN Reason Stop Dose Admin Hydrocodone Bitart/Acetaminophen 1 tab 08/29/20 19:28 09/01/20 19:07 Hydrocodone/Acetaminophen 5/325 Mg Tablet PO 1 tab Q4H PRN Administration Moderate to Severe Pain (6-10) Allopurinol 200 mg 08/30/20 09:00 09/02/20 08:36 Allopurinol 100 Mg Tab PO 200 mg DAILY TIEN Administration Apixaban 5 mg 08/30/20 21:00 09/02/20 08:37 Apixaban 5 Mg Tab PO 5 mg BID TIEN Administration Bisacodyl 10 mg 08/29/20 13:06 09/02/20 15:31 Bisacodyl 5 Mg Tab PO 10 mg DAILYPRN PRN Administration Constipation Bismuth Subsalicylate 262.5 mg 08/31/20 17:59 09/02/20 04:17 Bismuth Subs 17.5 Mg/Ml Susp PO 262.5 mg Q6H PRN Administration .GASTRITIS Calcium Carbonate 1,000 mg 08/29/20 13:06 08/31/20 09:11 Calcium Carbonate 500 Mg Chewtab PO 1,000 mg Q4H PRN Administration Heartburn or Indigestion Docusate Sodium 100 mg 08/30/20 21:00 09/02/20 08:36 Docusate 100 Mg Cap PO 100 mg BID TIEN Administration Furosemide 40 mg 09/02/20 07:30 09/02/20 08:37 Furosemide 40 Mg Tab PO 40 mg DAILY-AC TIEN Administration Promethazine HCl 25 mg/ Sodium 51 mls @ 204 mls/hr 08/31/20 13:04 08/31/20 14:37 Chloride IVPB 51 mls Q6H PRN Administration Nausea/Vomiting Morphine Sulfate 4 mg 08/30/20 00:18 08/31/20 20:31 Morphine 4 Mg/Ml Vial SLOW IVP 4 mg Q4H PRN Administration Severe Pain (7-10) Morphine Sulfate 30 mg 08/30/20 15:00 09/02/20 15:31 Morphine Er 30 Mg Tab PO 30 mg TID TIEN Administration Ondansetron HCl 4 mg 08/29/20 13:06 08/31/20 08:16 Ondansetron Odt 4 Mg Tab PO 4 mg Q6H PRN Administration Nausea/Vomiting Ondansetron HCl 4 mg 08/29/20 13:06 09/02/20 08:41 Ondansetron Pf 4 Mg/2 Ml Vial IVP 4 mg Q6H PRN Administration Nausea/Vomiting Pantoprazole Sodium 40 mg 08/31/20 09:00 09/02/20 08:36 Pantoprazole 40 Mg Tab PO 40 mg DAILY TIEN Administration Senna 2 tab 08/30/20 21:00 09/02/20 08:36 Senokot 8.6 Mg Tab PO 2 tab BID TIEN Administration Sodium Chloride 10 ml 08/29/20 13:06 09/01/20 21:13 Flush - Normal Saline 10 Ml Syringe IVF 10 ml PRN PRN Administration Saline Flush - Exam Neck: negative: supple, symmetric, no JVD, no thyromegaly, no lymphadenopathy, no carotid bruit, JVD Heart: negative: RRR, no murmur, no gallops, no rubs, normal peripheral pulses, irregular, diminshed peripheral pulses, murmur present, II/IV, III/IV Respiratory: negative: CTAB, no wheezes, no rales, no ronchi, normal chest expansion, no tachypnea, normal percussion, rales, rhonchi, tachypneic, wheezes Gastrointestinal: soft, normal bowel sounds Gastrointestinal - other findings: Significant abdominal wall edema. Hosp A/P - Plan (1) Abdominal pain Code(s): R10.9 - UNSPECIFIED ABDOMINAL PAIN Status: Acute Qualifiers: Abdominal location: generalized Qualified Code(s): R10.84 - Generalized abdominal pain (2) Malignant melanoma, metastatic Code(s): C79.9 - SECONDARY MALIGNANT NEOPLASM OF UNSPECIFIED SITE Status: [place] (3) Liver metastases Code(s): C78.7 - SECONDARY MALIG NEOPLASM OF LIVER AND INTRAHEPATIC BILE DUCT Status: Acute (4) Portal vein thrombosis Code(s): I81 - PORTAL VEIN THROMBOSIS Status: Acute (5) GERD (gastroesophageal reflux disease) Code(s): K21.9 - GASTRO-ESOPHAGEAL REFLUX DISEASE WITHOUT ESOPHAGITIS Status: Chronic Qualifiers: Esophagitis presence: esophagitis presence not specified Qualified Code(s): K21.9 - Gastro-esophageal reflux disease without esophagitis (6) Hyperlipidemia Code(s): E78.5 - HYPERLIPIDEMIA, UNSPECIFIED Status: Chronic Qualifiers: Hyperlipidemia type: unspecified Qualified Code(s): E78.5 - Hyperlipidemia, unspecified (7) Hypertension Code(s): I10 - ESSENTIAL (PRIMARY) HYPERTENSION Status: Chronic Qualifiers: Hypertension type: essential hypertension Qualified Code(s): I10 - Essential (primary) hypertension (8) Obesity (BMI 30.0-34.9) Code(s): E66.9 - OBESITY, UNSPECIFIED Status: Chronic (9) Anasarca Code(s): R60.1 - GENERALIZED EDEMA Status: Acute (10) Hypoalbuminemia Code(s): E88.09 - OTH DISORDERS OF PLASMA-PROTEIN METABOLISM, NEC Status: Acute - Plan has diffuse anasarca with abd wall and lower extre edema lasix iv q12h, watch for renal function, may scale back lasix to oral in am, albumin iv infusions x 4. has metastatic melanoma on keytruda prognosis guarded ms contin, morphine iv prn for breakthrough pain palliative care for code status encourage po intake as tolerated oniel hose for LE edema eliquis for portal vein thrombosis, ptt is around 40, PT around 19, watch for bleeding 1/2 will stop lasix and see how his bmp is elham. will continue albumin. He was encouraged to eat. will add ensure. updated pt's today. will continue eliquis for portal vein thrombosis. Nurse asked to give pt laxative since he has not had a bowel movement. 1/3 patient's Lasix currently is oral. He had a bowel movement last night. Creatinine has improved dramatically. We will continue albumin today. Patient encouraged to eat more.
[2020-09-02] MEDS: Albumin 25% 25 GM/100 ML BOT IVPB SCH (21:28)
[2020-09-03] MEDS: Albumin 25% 25 GM/100 ML BOT IVPB SCH (03:11)
[2020-09-03] MEDS: Morphine 4 MG/ML VIAL SLOW IVP PRN ×2 (05:18→10:12)
[2020-09-03 06:40] LABS: ALT (SGPT) 72 U/L (8-55); AST (SGOT) 440 U/L (5-34); Albumin 3.2 g/dL (3.5-5.0); Alkaline Phosphatase 389 U/L (40-110); Anion Gap 22 mmol/L (10-20); BUN (Urea Nitrogen) 48 mg/dL (8.9-20.6); Bilirubin, Total 1.5 mg/dL (0.2-1.2); Calc. Creatinine Clearance 88 mL/min (70-130); Calcium 7.8 mg/dL (7.8-10.44); Carbon Dioxide 16 mmol/L (22-29); Chloride 96 mmol/L (98-107); Globulin 2.2 g/dL (2.4-3.5); Glucose 67 mg/dL (70-105); Potassium 4.7 mmol/L (3.5-5.1); Protein, Total 5.4 g/dL (6.0-8.3); Sodium 129 mmol/L (136-145)
[2020-09-03] MEDS: Furosemide 40 MG TAB PO SCH (07:11)
[2020-09-03 07:13] LABS: #Eosinphils 0.1 thou/uL (0.0-0.7); #Lymphocytes 0.4 thou/uL (1.20-3.40); #Monocytes 0.8 thou/uL (0.11-0.59); #Neutrophils 6.9 thou/uL (1.40-6.50); %Basophils 0.3 % (0.0-1.0); %Eosinophils 0.7 % (0.0-10.0); %Lymphocytes 5.4 % (21.0-51.0); %Monocytes 9.8 % (0.0-10.0); %Neutrophils 83.9 % (42.0-75.0); Mean Corpuscular HGB CONC 30.3 g/dL (32.0-36.0); Mean Corpuscular Hemoglobin 28.2 pg (27.0-31.0); Mean Corpuscular Volume 92.8 fL (78.0-98.0); Platelet Count 111 thou/uL (130-400); RBC Distribution Width 20.3 % (11.5-14.5); White Blood Cell (WBC) Count 8.2 thou/uL (4.8-10.8)
[2020-09-03] MEDS: Morphine ER 30 MG TAB PO SCH ×3 (08:21→20:45)
[2020-09-03] MEDS: Senokot 8.6 MG TAB PO SCH ×2 (08:22→20:45)
[2020-09-03] MEDS: Allopurinol 100 MG TAB PO SCH (08:22)
[2020-09-03] MEDS: Docusate 100 MG CAP PO SCH ×2 (08:22→20:45)
[2020-09-03] MEDS: Apixaban 5 MG TAB PO SCH ×2 (08:23→20:45)
[2020-09-03] MEDS: Ondansetron PF 4 MG/2 ML Vial IVP PRN ×2 (10:15→18:21)
--- NOTE | 2020-09-03 14:29 | PDOC.HOSPP ---
- Subjective Encounter Date: 09/03/20 Encounter Time: 11:30 Subjective: pt up in bed complains of nausea and he has not been eating very much - Objective Vital Signs & Weight: Vital Signs (12 hours) Temp Pulse Resp BP BP Pulse Ox 09/03/20 10:21 107 H 18 115/55 L 95 09/03/20 10:10 107 H 18 113/59 L 95 09/03/20 08:00 95 09/03/20 07:03 98.1 F 104 H 16 111/60 95 Weight Admit Weight 238 lb Weight 236 lb 1.6 oz I&O: 09/02/20 09/03/20 09/04/20 06:59 06:59 06:59 Intake Total 1670 2000 Output Total 1325 1325 625 Balance 345 480 -214 Result Diagrams: 09/03/20 06:01 09/03/20 06:01 Hospitalist ROS - Review of Systems Respiratory: denies: cough, dry, shortness of breath, hemoptysis, SOB with excertion, pleuritic pain, sputum, wheezing, other Cardiovascular: denies: chest pain, palpitations, orthopnea, paroxysmal noc. dyspnea, edema, light headedness, other Gastrointestinal: reports: nausea, abdominal pain Genitourinary: denies: dysuria, frequency, incontinence, hematuria, retention, other - Medication Medications: Active Medications Generic Name Dose Route Start Last Admin Trade Name Freq PRN Reason Stop Dose Admin Hydrocodone Bitart/Acetaminophen 1 tab 08/29/20 19:28 09/01/20 19:07 Hydrocodone/Acetaminophen 5/325 Mg Tablet PO 1 tab Q4H PRN Administration Moderate to Severe Pain (6-10) Allopurinol 200 mg 08/30/20 09:00 09/03/20 08:22 Allopurinol 100 Mg Tab PO 200 mg DAILY TIEN Administration Apixaban 5 mg 08/30/20 21:00 09/03/20 08:23 Apixaban 5 Mg Tab PO 5 mg BID TIEN Administration Bisacodyl 10 mg 08/29/20 13:06 09/02/20 15:31 Bisacodyl 5 Mg Tab PO 10 mg DAILYPRN PRN Administration Constipation Bismuth Subsalicylate 262.5 mg 08/31/20 17:59 09/02/20 04:17 Bismuth Subs 17.5 Mg/Ml Susp PO 262.5 mg Q6H PRN Administration .GASTRITIS Calcium Carbonate 1,000 mg 08/29/20 13:06 08/31/20 09:11 Calcium Carbonate 500 Mg Chewtab PO 1,000 mg Q4H PRN Administration Heartburn or Indigestion Docusate Sodium 100 mg 08/30/20 21:00 09/03/20 08:22 Docusate 100 Mg Cap PO 100 mg BID TIEN Administration Furosemide 40 mg 09/02/20 07:30 09/03/20 07:11 Furosemide 40 Mg Tab PO 40 mg DAILY-AC TIEN Administration Promethazine HCl 25 mg/ Sodium 51 mls @ 204 mls/hr 08/31/20 13:04 08/31/20 14:37 Chloride IVPB 51 mls Q6H PRN Administration Nausea/Vomiting Morphine Sulfate 4 mg 08/30/20 00:18 09/03/20 10:12 Morphine 4 Mg/Ml Vial SLOW IVP 4 mg Q4H PRN Administration Severe Pain (7-10) Morphine Sulfate 30 mg 08/30/20 15:00 09/03/20 08:21 Morphine Er 30 Mg Tab PO 30 mg TID TIEN Administration Ondansetron HCl 4 mg 08/29/20 13:06 08/31/20 08:16 Ondansetron Odt 4 Mg Tab PO 4 mg Q6H PRN Administration Nausea/Vomiting Ondansetron HCl 4 mg 08/29/20 13:06 09/02/20 08:41 Ondansetron Pf 4 Mg/2 Ml Vial IVP 4 mg Q6H PRN Administration Nausea/Vomiting Pantoprazole Sodium 40 mg 08/31/20 09:00 09/03/20 08:26 Pantoprazole 40 Mg Tab PO 40 mg DAILY TIEN Administration Senna 2 tab 08/30/20 21:00 09/03/20 08:22 Senokot 8.6 Mg Tab PO 2 tab BID TIEN Administration Sodium Chloride 10 ml 08/29/20 13:06 09/01/20 21:13 Flush - Normal Saline 10 Ml Syringe IVF 10 ml PRN PRN Administration Saline Flush - Exam Neck: negative: supple, symmetric, no JVD, no thyromegaly, no lymphadenopathy, no carotid bruit, JVD Heart: negative: RRR, no murmur, no gallops, no rubs, normal peripheral pulses, irregular, diminshed peripheral pulses, murmur present, II/IV, III/IV Respiratory: negative: CTAB, no wheezes, no rales, no ronchi, normal chest expansion, no tachypnea, normal percussion, rales, rhonchi, tachypneic, wheezes Gastrointestinal: soft, normal bowel sounds, tender to palpation Gastrointestinal - other findings: Large abdomen Hosp A/P - Plan (1) Abdominal pain Code(s): R10.9 - UNSPECIFIED ABDOMINAL PAIN Status: Acute Qualifiers: Abdominal location: generalized Qualified Code(s): R10.84 - Generalized abdominal pain (2) Malignant melanoma, metastatic Code(s): C79.9 - SECONDARY MALIGNANT NEOPLASM OF UNSPECIFIED SITE Status: Acute (3) Liver metastases Code(s): C78.7 - SECONDARY MALIG NEOPLASM OF LIVER AND INTRAHEPATIC BILE DUCT Status: Acute (4) Portal vein thrombosis Code(s): I81 - PORTAL VEIN THROMBOSIS Status: Acute (5) GERD (gastroesophageal reflux disease) Code(s): K21.9 - GASTRO-ESOPHAGEAL REFLUX DISEASE WITHOUT ESOPHAGITIS Status: Chronic Qualifiers: Esophagitis presence: esophagitis presence not specified Qualified Code(s): K21.9 - Gastro-esophageal reflux disease without esophagitis (6) Hyperlipidemia Code(s): E78.5 - HYPERLIPIDEMIA, UNSPECIFIED Status: Chronic Qualifiers: Hyperlipidemia type: unspecified Qualified Code(s): E78.5 - Hyperlipidemia, unspecified (7) Hypertension Code(s): I10 - ESSENTIAL (PRIMARY) HYPERTENSION Status: Chronic Qualifiers: Hypertension type: essential hypertension Qualified Code(s): I10 - E ssential (primary) hypertension (8) Obesity (BMI 30.0-34.9) Code(s): E66.9 - OBESITY, UNSPECIFIED Status: Chronic (9) Anasarca Code(s): R60.1 - GENERALIZED EDEMA Status: Acute (10) Hypoalbuminemia Code(s): E88.09 - OTH DISORDERS OF PLASMA-PROTEIN METABOLISM, NEC Status: Acute - Plan has diffuse anasarca with abd wall and lower extre edema lasix iv q12h, watch for renal function, may scale back lasix to oral in am, albumin iv infusions x 4. has metastatic melanoma on keytruda prognosis guarded ms contin, morphine iv prn for breakthrough pain palliative care for code status encourage po intake as tolerated oniel reynolds for LE edema eliquis for portal vein thrombosis, ptt is around 40, PT around 19, watch for bleeding 1/ will stop lasix and see how his bmp is elham. will continue albumin. He was encouraged to eat. will add ensure. updated pt's today. will continue eliquis for portal vein thrombosis. Nurse asked to give pt laxative since he has not had a bowel movement. 09/02 patient's Lasix currently is oral. He had a bowel movement last night. C reatinine has improved dramatically. We will continue albumin today. Patient encouraged to eat more. 09/03 patient's creatinine continued to improve. However he is notably not eating very much. We will continue to monitor his LFTs are worse today. Asked nursing staff to not give as needed IV morphine. He had a bowel movement today. H&H is low we will continue to monitor.
--- NOTE | 2020-09-03 14:30 | PDOC.MOPN ---
Interval History: feels about the same, continued anasarca. early satiety - Vital Signs Vital Signs: Vital Signs (12 hours) Temp Pulse Resp BP BP Pulse Ox 09/03/20 10:21 107 H 18 115/55 L 95 09/03/20 10:10 107 H 18 113/59 L 95 09/03/20 08:00 95 09/03/20 07:03 98.1 F 104 H 16 111/60 95 Weight Admit Weight 238 lb Weight 236 lb 1.6 oz - Physical Exam General: Alert, Oriented x3, No acute distress HEENT: Atraumatic, PERRLA, EOMI, Mucous membr. moist/pink Lungs: Clear to auscultation Cardiovascular: Regular rate Abdomen: Other (palpable liver) Extremities: Other (2+ anasarca) Neurological: Normal speech Psych/Mental Status: Mental status NL - Labs Result Diagrams: 09/03/20 06:01 09/03/20 06:01 Lab results: Laboratory Results - last 24 hr 09/03/20 06:01: Sodium 129 L, Potassium 4.7, Chloride 96 L, Carbon Dioxide 16 L, Anion Gap 22 H, BUN 48 H, Creatinine 1.57 H, Estimated GFR (MDRD) 48, Glucose 67 L, Calcium 7.8, Total Bilirubin 1.5 H, AST 440 H, ALT 72 H, Alkaline Phosphatase 389 H, Serum Total Protein 5.4 L, Albumin 3.2 L, Globulin 2.2 L, Albumin/Gl obulin Ratio 1.5 09/03/20 06:01: WBC 8.2, RBC 2.50 L, Hgb 7.0 L, Hct 23.2 L, MCV 92.8, MCH 28.2, MCHC 30.3 L, RDW 20.3 H, Plt Count 111 L, MPV 7.0 L, Neutrophils % 83.9 H, Lym phocytes % 5.4 L, Monocytes % 9.8, Eosinophils % 0.7, Basophils % 0.3, Neutrophils # 6.9 H, Lymphocytes # 0.4 L, Monocytes # 0.8 H, Eosinophils # 0.1, Basophils # 0.0 Status: lab reviewed by me A/P - Problem (1) Anasarca Current Visit: Yes Code(s): R60.1 - GENERALIZED EDEMA Status: Acute (2) Malignant melanoma, metastatic Current Visit: Yes Code(s): C79.9 - SECONDARY MALIGNANT NEOPLASM OF UNSPECIFIED SITE Status: Acute (3) Acute renal failure Current Visit: No Status: Acute - Plan Plan: 1. continue albumin, diuresis 2. continue pain meds 3. encourage nutrition 4. discussed with Dr. Watson. Patient needs further Keytruda, due next week.
[2020-09-03] MEDS: HYDROcodone/Acetaminophen 5/325 mg Tablet PO PRN ×2 (14:34→18:21)
[2020-09-04] MEDS: Ondansetron PF 4 MG/2 ML Vial IVP PRN (05:34)
[2020-09-04] MEDS: Furosemide 40 MG TAB PO SCH (06:11)
[2020-09-04] MEDS: Allopurinol 100 MG TAB PO SCH (09:07)
[2020-09-04] MEDS: Senokot 8.6 MG TAB PO SCH ×2 (09:08→20:26)
[2020-09-04] MEDS: Apixaban 5 MG TAB PO SCH ×2 (09:08→20:26)
[2020-09-04] MEDS: Docusate 100 MG CAP PO SCH ×2 (09:08→20:26)
[2020-09-04] MEDS: Morphine ER 30 MG TAB PO SCH ×3 (09:09→20:26)
[2020-09-04] MEDS: Ondansetron ODT 4 MG TAB PO PRN (09:11)
[2020-09-04 09:41] LABS: Hemoglobin 7.6 g/dL (14.0-18.0); Mean Corpuscular HGB CONC 30.8 g/dL (32.0-36.0); Mean Corpuscular Hemoglobin 29.5 pg (27.0-31.0); Mean Corpuscular Volume 95.7 fL (78.0-98.0); Mean Platelet Volume 7.5 fL (7.4-10.4); Platelet Count 114 thou/uL (130-400); RBC Distribution Width 21.6 % (11.5-14.5); Red Blood Cell (RBC) Count 2.58 mill/uL (4.70-6.10); White Blood Cell (WBC) Count 8.7 thou/uL (4.8-10.8)
[2020-09-04 09:54] LABS: Anion Gap 26 mmol/L (10-20); BUN (Urea Nitrogen) 52 mg/dL (8.9-20.6); Calc. Creatinine Clearance 84 mL/min (70-130); Calcium 7.9 mg/dL (7.8-10.44); Carbon Dioxide 13 mmol/L (22-29); Chloride 97 mmol/L (98-107); Glucose 73 mg/dL (70-105); Potassium 4.7 mmol/L (3.5-5.1); Sodium 131 mmol/L (136-145)
[2020-09-04 10:04] LABS: Anisocytosis MODERATE=16-30 cells (100X) (0-5/hpf); Band 16 % (5-11); Eosinophils 1 % (0-10); Hypochromia SLIGHT = 6-15 cells (100X) (0-5/hpf); Lymphocytes 5 % (21-51); MDiff Complete? YES; Metamyelocyte 2 % (0-0); Monocytes 11 % (0-10); Neutrophil 63 % (42-75); Polychromasia MODERATE = 3-4 cells (100X) (0-2/hpf); Target Cells SLIGHT = 2-5 cells (100X) (0-1/hpf)
[2020-09-04 11:17] LABS: ALT (SGPT) 80 U/L (8-55); AST (SGOT) 447 U/L (5-34); Albumin 2.9 g/dL (3.5-5.0); Alkaline Phosphatase 416 U/L (40-110); Bilirubin, Direct 1.3 mg/dL (0.1-0.3); Protein, Total 5.5 g/dL (6.0-8.3)
[2020-09-04] MEDS: Metoclopramide HCl 10 MG/2 ML VIAL IVP SCH ×2 (12:11→17:44)
--- NOTE | 2020-09-04 14:42 | PDOC.MOPN ---
Interval History: eating small amount. regbartolo appears to be helping. - Vital Signs Vital Signs: Vital Signs (12 hours) Temp Pulse Resp BP Pulse Ox 09/04/20 08:00 99.3 F 115 H 18 116/57 L 93 L Weight Admit Weight 238 lb Weight 235 lb 14.4 oz - Physical Exam General: Oriented x3 HEENT: Atraumatic Lungs: Clear to auscultation Cardiovascular: Regular rate Abdomen: Other (distended) Extremities: Other (2+ edema) Neurological: Normal speech Psych/Mental Status: Mental status NL - Labs Result Diagrams: 09/04/20 09:21 09/04/20 09:21 Lab results: Laboratory Results - last 24 hr 09/04/20 09:21: Total Bilirubin 2.0 H, Direct Bilirubin 1.3 H, AST 447 H, ALT 80 H, Alkaline Phosphatase 416 H, Serum Total Protein 5.5 L, Albumin 2.9 L 09/04/20 09:21: WBC 8.7, RBC 2.58 L, Hgb 7.6 L, Hct 24.6 L, MCV 95.7, MCH 29.5, MCHC 30.8 L, RDW 21.6 H, Plt Count 114 L, MPV 7.5, Neutrophils % (Manual) 63, Band Neuts % (Manual) 16 H, Lymphocytes % (Manual) 5 L, Monocytes % (Manual) 11 H, Eosinophils % (Manual) 1, Basophils % (Manual) 2, Metamyelocytes % (Man) 2 H, Lymphocytes # Not Reportable, Hypochromia SLIGHT = 6-15 cells, Polychromasia MODERATE = 3-4 cells H, Anisocytosis MODERATE=16-30 cells H, Target Cells SLIGHT = 2-5 cells 09/04/20 09:21: Sodium 131 L, Potassium 4.7, Chloride 97 L, Carbon Dioxide 13 L, Anion Gap 26 H, BUN 52 H, Creatinine 1.65 H, Estimated GFR (MDRD) 45, Glucose 73, Calcium 7.9 Status: lab reviewed by me A/P - Problem (1) Anasarca Current Visit: Yes Code(s): R60.1 - GENERALIZED EDEMA Status: Acute (2) Malignant melanoma, metastatic Current Visit: Yes Code(s): C79.9 - SECONDARY MALIGNANT NEOPLASM OF UNSPECIFIED SITE Status: Acute (3) Acute renal failure Current Visit: No Status: Acute - Plan Plan: 1. Seen by Dr. Watson today as well 2. Plan outpatient referral to [facility] 3. Continue reglan, nausea meds 4. Home health, [facility] 5. follow-up in clinic on Thursday for hydration, exam.
[2020-09-04] MEDS: HYDROcodone/Acetaminophen 5/325 mg Tablet PO PRN ×2 (14:53→18:31)
--- NOTE | 2020-09-04 16:44 | PDOC.HOSPP ---
- Subjective Encounter Date: 09/04/20 Encounter Time: 12:30 Subjective: Patient up in bed unable to eat - Objective Vital Signs & Weight: Vital Signs (12 hours) Temp Pulse Resp BP Pulse Ox 09/04/20 08:00 99.3 F 115 H 18 116/57 L 93 L Weight Admit Weight 238 lb Weight 235 lb 14.4 oz I&O: 09/03/20 09/04/20 09/05/20 06:59 06:59 06:59 Intake Total 1999 182 Output Total 1325 1825 Balance 675 -5 Result Diagrams: 09/04/20 09:21 09/04/20 09:21 Hospitalist ROS - Review of Systems Respiratory: denies: cough, dry, shortness of breath, hemoptysis, SOB with excertion, pleuritic pain, sputum, wheezing, other Cardiovascular: denies: chest pain, palpitations, orthopnea, paroxysmal noc. dyspnea, edema, light headedness, other Gastrointestinal: reports: nausea, vomiting, abdominal pain Genitourinary: denies: dysuria, frequency, incontinence, hematuria, retention, other - Medication Medications: Active Medications Generic Name Dose Route Start Last Admin Trade Name Freq PRN Reason Stop Dose Admin Hydrocodone Bitart/Acetaminophen 1 tab 08/29/20 19:28 09/04/20 14:53 Hydrocodone/Acetaminophen 5/325 Mg Tablet PO 1 tab Q4H PRN Administration Moderate to Severe Pain (6-10) Allopurinol 200 mg 08/30/20 09:00 09/04/20 09:07 Allopurinol 100 Mg Tab PO 200 mg DAILY TIEN Administration Apixaban 5 mg 08/30/20 21:00 09/04/20 09:08 Apixaban 5 Mg Tab PO 5 mg BID TIEN Administration Bisacodyl 10 mg 08/29/20 13:06 09/02/20 15:31 Bisacodyl 5 Mg Tab PO 10 mg DAILYPRN PRN Administration Constipation Bismuth Subsalicylate 262.5 mg 08/31/20 17:59 09/02/20 04:17 Bismuth Subs 17.5 Mg/Ml Susp PO 262.5 mg Q6H PRN Administration .GASTRITIS Calcium Carbonate 1,000 mg 08/29/20 13:06 08/31/20 09:11 Calcium Carbonate 500 Mg Chewtab PO 1,000 mg Q4H PRN Administration Heartburn or Indigestion Docusate Sodium 100 mg 08/30/20 21:00 09/04/20 09:08 Docusate 100 Mg Cap PO 100 mg BID TIEN Administration Furosemide 40 mg 09/02/20 07:30 09/04/20 06:11 Furosemide 40 Mg Tab PO 40 mg DAILY-AC TIEN Administration Promethazine HCl 25 mg/ Sodium 51 mls @ 204 mls/hr 08/31/20 13:04 08/31/20 14:37 Chloride IVPB 51 mls Q6H PRN Administration Nausea/Vomiting Metoclopramide HCl 10 mg 09/04/20 12:00 09/04/20 12:11 Metoclopramide Hcl 10 Mg/2 Ml Vial IVP 10 mg Q6HR TIEN Administration Morphine Sulfate 30 mg 08/30/20 15:00 09/04/20 14:52 Morphine Er 30 Mg Tab PO 30 mg TID TIEN Administration Ondansetron HCl 4 mg 08/29/20 13:06 09/04/20 09:11 Ondansetron Odt 4 Mg Tab PO 4 mg Q6H PRN Administration Nausea/Vomiting Ondansetron HCl 4 mg 08/29/20 13:06 09/04/20 05:34 Ondansetron Pf 4 Mg/2 Ml Vial IVP 4 mg Q6H PRN Administration Nausea/Vomiting Pantoprazole Sodium 40 mg 08/31/20 09:00 09/04/20 09:08 Pantoprazole 40 Mg Tab PO 40 mg DAILY TIEN Administration Senna 2 tab 08/30/20 21:00 09/04/20 09:08 Senokot 8.6 Mg Tab PO 2 tab BID TIEN Administration Sodium Chloride 10 ml 08/29/20 13:06 09/01/20 21:13 Flush - Normal Saline 10 Ml Syringe IVF 10 ml PRN PRN Administration Saline Flush - Exam Neck: negative: supple, symmetric, no JVD, no thyromegaly, no lymphadenopathy, no carotid bruit, JVD Heart: negative: RRR, no murmur, no gallops, no rubs, normal peripheral pulses, irregular, diminshed peripheral pulses, murmur present, II/IV, III/IV Respiratory: negative: CTAB, no wheezes, no rales, no ronchi, normal chest expansion, no tachypnea, normal percussion, rales, rhonchi, tachypneic, wheezes Gastrointestinal: soft, normal bowel sounds Gastrointestinal - other findings: Abdomen distention Hosp A/P - Plan (1) Abdominal pain Code(s): R10.9 - UNSPECIFIED ABDOMINAL PAIN Status: Acute Qualifiers: Abdominal location: generalized Qualified Code(s): R10.84 - Generalized abdominal pain (2) Malignant melanoma, metastatic Code(s): C79.9 - SECONDARY MALIGNANT NEOPLASM OF UNSPECIFIED SITE Status: Acute (3) Liver metastases Code(s): C78.7 - SECONDARY MALIG NEOPLASM OF LIVER AND INTRAHEPATIC BILE DUCT Status: Acute (4) Portal vein thrombosis Code(s): I81 - PORTAL VEIN THROMBOSIS Status: Acute (5) GERD (gastroesophageal reflux disease) Code(s): K21.9 - GASTRO-ESOPHAGEAL REFLUX DISEASE WITHOUT ESOPHAGITIS Status: Chronic Qualifiers: Esophagitis presence: esophagitis presence not specified Qualified Code(s): K21.9 - Gastro-esophageal reflux disease without esophagitis (6) Hyperlipidemia Code(s): E78.5 - HYPERLIPIDEMIA, UNSPECIFIED Status: Chronic Qualifiers: Hyperlipidemia type: unspecified Qualified Code(s): E78.5 - Hyperlipidemia, unspecified (7) Hypertension Code(s): I10 - ESSENTIAL (PRIMARY) HYPERTENSION Status: Chronic Qualifiers: Hypertension type: essential hypertension Qualified Code(s): I10 - Essential (primary) hypertension (8) Obesity (BMI 30.0-34.9) Code(s): E66.9 - OBESITY, UNSPECIFIED Status: Chronic (9) Anasarca Code(s): R60.1 - GENERALIZED EDEMA Status: Acute (10) Hypoalbuminemia Code(s): E88.09 - OTH DISORDERS OF PLASMA-PROTEIN METABOLISM, NEC Status: A cute - Plan has diffuse anasarca with abd wall and lower extre edema lasix iv q12h, watch for renal function, may scale back lasix to oral in am, albumin iv infusions x 4. has metastatic melanoma on keytruda prognosis guarded ms contin, morphine iv prn for breakthrough pain palliative care for code status encourage po intake as tolerated oniel hose for LE edema eliquis for portal vein thrombosis, ptt is around 40, PT around 19, watch for bleeding 1/2 will stop lasix and see how his bmp is elham. will continue albumin. He was encouraged to eat. will add ensure. updated pt's today. will continue eliquis for portal vein thrombosis. Nurse asked to give pt laxative since he has not had a bowel movement. 09/02 patient's Lasix currently is oral. He had a bowel movement last night. Creatinine has improved dramatically. We will continue albumin today. Patient encouraged to eat more. 09/03 patient's creatinine continued to improve. However he is notably not eating very much. We will continue to monitor his LFTs are worse today. Asked nursing staff to not give as needed IV morphine. He had a bowel movement today. H&H is low we will continue to monitor. 09/04 patient's creatinine continues to improve. he still is unable to tolerate a regular meal. I have recommended starting patient on Reglan and Zofran to see if that would help him. Patient may require TPN or PPN.
[2020-09-04] MEDS: Bisacodyl 5 MG TAB PO PRN (20:26)
[2020-09-05] MEDS: Metoclopramide HCl 10 MG/2 ML VIAL IVP SCH ×3 (00:05→12:23)
[2020-09-05] MEDS: HYDROcodone/Acetaminophen 5/325 mg Tablet PO PRN (05:26)
[2020-09-05 08:09] LABS: Anion Gap 22 mmol/L (10-20); BUN (Urea Nitrogen) 58 mg/dL (8.9-20.6); Calc. Creatinine Clearance 76 mL/min (70-130); Calcium 7.9 mg/dL (7.8-10.44); Carbon Dioxide 17 mmol/L (22-29); Chloride 94 mmol/L (98-107); Glucose 92 mg/dL (70-105); Potassium 5.2 mmol/L (3.5-5.1); Sodium 128 mmol/L (136-145)
[2020-09-05 08:14] VITALS: BP 119/56; TEMP 98.1
[2020-09-05 08:14] LABS: Hemoglobin 7.9 g/dL (14.0-18.0); Mean Corpuscular HGB CONC 31.3 g/dL (32.0-36.0); Mean Corpuscular Hemoglobin 30.3 pg (27.0-31.0); Mean Platelet Volume 9.2 fL (7.4-10.4); RBC Distribution Width 22.3 % (11.5-14.5); Red Blood Cell (RBC) Count 2.59 mill/uL (4.70-6.10); White Blood Cell (WBC) Count 8.1 thou/uL (4.8-10.8)
[2020-09-05 09:10] LABS: ALT (SGPT) 77 U/L (8-55); AST (SGOT) 366 U/L (5-34); Alkaline Phosphatase 429 U/L (40-110); Bilirubin, Direct 0.8 mg/dL (0.1-0.3); Bilirubin, Total 1.9 mg/dL (0.2-1.2)
[2020-09-05] MEDS: Morphine ER 30 MG TAB PO SCH ×2 (09:18→14:45)
[2020-09-05] MEDS: Apixaban 5 MG TAB PO SCH (09:18)
[2020-09-05] MEDS: Allopurinol 100 MG TAB PO SCH (09:19)
[2020-09-05] MEDS: Docusate 100 MG CAP PO SCH (09:19)
[2020-09-05] MEDS: Furosemide 40 MG TAB PO SCH (09:19)
[2020-09-05] MEDS: Senokot 8.6 MG TAB PO SCH (09:20)
[2020-09-05 11:59] LABS: Platelet Count 133 thou/uL (130-400)
[2020-09-05 12:01] LABS: #Basophils 0.1 thou/uL (0.0-0.2); #Eosinphils 0.1 thou/uL (0.0-0.7); #Lymphocytes 0.4 thou/uL (1.20-3.40); #Monocytes 0.7 thou/uL (0.11-0.59); #Neutrophils 6.8 thou/uL (1.40-6.50); %Basophils 1.1 % (0.0-1.0); %Eosinophils 1.2 % (0.0-10.0); %Lymphocytes 5.4 % (21.0-51.0); %Monocytes 8.3 % (0.0-10.0); %Neutrophils 84.1 % (42.0-75.0); MDiff Complete? YES; Platelet Clumps MODERATE
[2020-09-05 12:30] LABS: Anion Gap 18 mmol/L (10-20); BUN (Urea Nitrogen) 58 mg/dL (8.9-20.6); Calc. Creatinine Clearance 81 mL/min (70-130); Calcium 8.2 mg/dL (7.8-10.44); Carbon Dioxide 21 mmol/L (22-29); Chloride 94 mmol/L (98-107); Glucose 87 mg/dL (70-105); Potassium 4.2 mmol/L (3.5-5.1); Sodium 129 mmol/L (136-145)
[2020-09-05] MEDS ORDERED: BIOTENE MOUTH SPRAY 44.3 ML MM PRN (13:17)
--- NOTE | 2020-09-05 13:20 | PDOC.PALCO ---
Palliative Care Consult - Consult Details Requesting Physician: Pelon Seymour Hospitalist Reason for Consult: goals of care, advance directives assistance, assistance with communication prognosis/disease Family Members Present: Patient - Pertinent HPI 44 year old male with metastatic melanoma currently receiving Keytruda, followed by Dr Watson. He had an onset of abdominal pain and distention which progressed over the past 2 months, no relief and associated lower extremity and scrotal edema paired with weight gain. Recent admission and discharge 08/17/2020 with same acute complaint. GI evaluated patient at previous admission, determining abdominal pain and associated ascities are related to tumor burden. He confirms pain and edema have progressively increased since prior admission. Initially denied nausea or vomiting, however since admission has had complaints of pronounced intermittent nausea. When patient presented to the emergency room 09/01 he was noted to be tachycardic, with worsening ascities and edema. Admitted for further medical management. - Pertinent PMH HTN, HDL, Metastatic melanoma, Gout - Social History Smoking Status: Former smoker Smoking: quit greater than 1 year Alcohol Use: occasional, other (Daily drinker until 07/2020) Drug Use History: none Living Situation: - Medications MAR Reviewed: Yes - Allergies Allergies/Adverse Reactions: Allergies Allergy/AdvReac Type Severity Reaction Status Date / Time No Known Allergies Allergy Verified 08/30/20 03:21 - Subjective Sitting on side of bed, in room. Patient states he is "tired" and can not "rest in the hospital" denies nausea at time of visit, continues with pain - ROS Constitutional: alert Eyes: other (Denies visual changes) ENT: other (Negative for throat irritation, congestion) Respiratory: shortness of breath with extertion Cardiology: other (Negative for palpitations at time of assessment) Gastrointestinal: bloating, intolerance of foods, stomach discomfort Neurological: other (Denies dizziness, tremor) Skin: other (Denies puritis, rash, jaundice) Psychological: restless - Objective Vital Signs: Vital Signs - Most Recent Temp Pulse Resp BP Pulse Ox 98.1 F 111 H 18 119/56 L 94 L 09/05/20 07:55 09/05/20 07:55 09/05/20 07:55 09/05/20 07:55 09/05/20 07:55 Palliative Performance Scale: 40 - Physical Exam Constitutional: ill appearing HEENT: EOMI, moist MMs Respiratory: no wheezing, labored respirations Cardiovascular: RRR Deviation from normal: Distended Genitourinary: continent Musculoskeletal: no clubbing, edema present Neurology: moves all 4 limbs, no focal deficits Skin: cap refill <2 seconds, no lesions, no rash Psychiatric: A&O x 3, flat affect - Problem List (1) Palliative care encounter Code(s): Z51.5 - ENCOUNTER FOR PALLIATIVE CARE Current Visit: Yes Status: Acute (2) Anasarca Code(s): R60.1 - GENERALIZED EDEMA Current Visit: Yes Status: Acute (3) Malignant melanoma, metastatic Code(s): C79.9 - SECONDARY MALIGNANT NEOPLASM OF UNSPECIFIED SITE Current Visit: Yes Status: Acute (4) Abdominal pain Code(s): R10.9 - UNSPECIFIED ABDOMINAL PAIN Current Visit: No Status: Acute Qualifiers: Abdominal location: generalized Qualified Code(s): R10.84 - Generalized abdominal pain (5) Acute renal failure Current Visit: No Status: Acute - Plan/Recommendations Plan: Palliative care has met with Patient previously. Today was at bedside. Nausea currently managed. Hopeful for continued treatment, desires to seek evaluation at [facility] Agreeable to transition to home with Home Health Does not desire to complete MPOA or directives, left for review and information. Biotene for dry mucous membranes. Palliative care will sign off as Goal of care addressed, discussed MPOA and Directives. If we can assist in the future please re consult our team to revisit Goal of Car e, revisit directives, complex decision making, coping/support [60] minutes spent on this encounter with >50% of the time in counseling and coordination of care. Thank you for this very appropriate consult.
[2020-09-05 15:13] VITALS: BMI 32.3
--- NOTE | 2020-09-05 17:43 | PDOC.HOSPP ---
- Subjective Encounter Date: 09/05/20 Encounter Time: 12:45 Subjective: Patient up in bed no complaints - Objective Vital Signs & Weight: Vital Signs (12 hours) Temp Pulse Resp BP Pulse Ox 09/05/20 07:55 98.1 F 111 H 18 119/56 L 94 L Weight Admit Weight 238 lb Weight 232 lb 2 oz I&O: 09/04/20 09/05/20 09/06/20 06:59 06:59 06:59 Intake Total 1820 1862 Output Total 1825 1000 Balance -5 862 Result Diagrams: 09/05/20 07:37 09/05/20 11:50 Hospitalist ROS - Review of Systems Cardiovascular: denies: chest pain, palpitations, orthopnea, paroxysmal noc. dyspnea, edema, light headedness, other Gastrointestinal: reports: nausea Genitourinary: denies: dysuria, frequency, incontinence, hematuria, retention, other - Medication Medications: Active Medications Generic Name Dose Route Start Last Admin Trade Name Freq PRN Reason Stop Dose Admin Hydrocodone Bitart/Acetaminophen 1 tab 08/29/20 19:28 09/05/20 05:26 Hydrocodone/Acetaminophen 5/325 Mg Tablet PO 1 tab Q4H PRN Administration Moderate to Severe Pain (6-10) Allopurinol 200 mg 08/30/20 09:00 09/05/20 09:19 Allopurinol 100 Mg Tab PO 200 mg DAILY TIEN Administration Apixaban 5 mg 08/30/20 21:00 09/05/20 09:18 Apixaban 5 Mg Tab PO 5 mg BID TIEN Administration Bisacodyl 10 mg 08/29/20 13:06 09/04/20 20:26 Bisacodyl 5 Mg Tab PO 10 mg DAILYPRN PRN Administration Constipation Bismuth Subsalicylate 262.5 mg 08/31/20 17:59 09/02/20 04:17 Bismuth Subs 17.5 Mg/Ml Susp PO 262.5 mg Q6H PRN Administration .GASTRITIS Calcium Carbonate 1,000 mg 08/29/20 13:06 08/31/20 09:11 Calcium Carbonate 500 Mg Chewtab PO 1,000 mg Q4H PRN Administration Heartburn or Indigestion Docusate Sodium 100 mg 08/30/20 21:00 09/05/20 09:19 Docusate 100 Mg Cap PO Not Given BID TIEN Furosemide 40 mg 09/02/20 07:30 09/05/20 09:19 Furosemide 40 Mg Tab PO 40 mg DAILY-AC TIEN Administration Promethazine HCl 25 mg/ Sodium 51 mls @ 204 mls/hr 08/31/20 13:04 08/31/20 14:37 Chloride IVPB 51 mls Q6H PRN Administration Nausea/Vomiting Metoclopramide HCl 10 mg 09/04/20 12:00 09/05/20 12:23 Metoclopramide Hcl 10 Mg/2 Ml Vial IVP 10 mg Q6HR TIEN Administration Morphine Sulfate 30 mg 08/30/20 15:00 09/05/20 14:45 Morphine Er 30 Mg Tab PO 30 mg TID TEIN Administration Ondansetron HCl 4 mg 08/29/20 13:06 09/04/20 09:11 Ondansetron Odt 4 Mg Tab PO 4 mg Q6H PRN Administration Nausea/Vomiting Ondansetron HCl 4 mg 08/29/20 13:06 09/04/20 05:34 Ondansetron Pf 4 Mg/2 Ml Vial IVP 4 mg Q6H PRN Administration Nausea/Vomiting Pantoprazole Sodium 40 mg 08/31/20 09:00 09/05/20 09:18 Pantoprazole 40 Mg Tab PO 40 mg DAILY TIEN Administration Senna 2 tab 08/30/20 21:00 09/05/20 09:20 Senokot 8.6 Mg Tab PO Not Given BID TIEN Sodium Chloride 10 ml 08/29/20 13:06 09/05/20 05:24 Flush - Normal Saline 10 Ml Syringe IVF 10 ml PRN PRN Administration Saline Flush - Exam Heart: negative: RRR, no murmur, no gallops, no rubs, normal peripheral pulses, irregular, diminshed peripheral pulses, murmur present, II/IV, III/IV Respiratory: negative: CTAB, no wheezes, no rales, no ronchi, normal chest expansion, no tachypnea, normal percussion, rales, rhonchi, tachypneic, wheezes Gastrointestinal - other findings: Abdomen distention noted Hosp A/P - Plan (1) Abdominal pain Code(s): R10.9 - UNSPECIFIED ABDOMINAL PAIN Status: Acute Qualifiers: Abdominal location: generalized Qualified Code(s): R10.84 - Generalized abd ominal pain (2) Malignant melanoma, metastatic Code(s): C79.9 - SECONDARY MALIGNANT NEOPLASM OF UNSPECIFIED SITE Status: Acute (3) Liver metastases Code(s): C78.7 - SECONDARY MALIG NEOPLASM OF LIVER AND INTRAHEPATIC BILE DUCT Status: Acute (4) Portal vein thrombosis Code(s): I81 - PORTAL VEIN THROMBOSIS Status: Acute (5) GERD (gastroesophageal reflux disease) Code(s): K21.9 - GASTRO-ESOPHAGEAL REFLUX DISEASE WITHOUT ESOPHAGITIS Status: Chronic Qualifiers: Esophagitis presence: esophagitis presence not specified Qualified Code(s): K21.9 - Gastro-esophageal reflux disease without esophagitis (6) Hyperlipidemia Code(s): E78.5 - HYPERLIPIDEMIA, UNSPECIFIED Status: Chronic Qualifiers: Hyperlipidemia type: unspecified Qualified Code(s): E78.5 - Hyperlipidemia, unspecified (7) Hypertension Code(s): I10 - ESSENTIAL (PRIMARY) HYPERTENSION Status: Chronic Qualifiers: Hypertension type: essential hypertension Qualified Code(s): I10 - Essential (primary) hypertension (8) Obesity (BMI 30.0-34.9) Code(s): E66.9 - OBESITY, UNSPECIFIED Status: Chronic (9) Anasarca Code(s): R60.1 - GENERALIZED EDEMA Status: Acute (10) Hypoalbuminemia Code(s): E88.09 - OTH DISORDERS OF PLASMA-PROTEIN METABOLISM, NEC Status: Acute - Plan has diffuse anasarca with abd wall and lower extre edema lasix iv q12h, watch for renal function, may scale back lasix to oral in am, albumin iv infusions x 4. has metastatic melanoma on keytruda prognosis guarded ms contin, morphine iv prn for breakthrough pain palliative care for code status encourage po intake as tolerated oniel hose for LE edema eliquis for portal vein thrombosis, ptt is around 40, PT around 19, watch for bleeding 1/2 will stop lasix and see how his bmp is elham. will continue albumin. He was encouraged to eat. will add ensure. updated pt's today. will continue eliquis for portal vein thrombosis. Nurse asked to give pt laxative since he has not had a bowel movement. 1/3 patient's Lasix currently is oral. He had a bowel movement last night. Creatinine has improved dramatically. We will continue albumin today. Patient encouraged to eat more. 09/03 patient's creatinine continued to improve. However he is notably not eating very much. We will continue to monitor his LFTs are worse today. Asked nursing staff to not give as needed IV morphine. He had a bowel movement today. H&H is low we will continue to monitor. 09/04 patient's creatinine continues to improve. he still is unable to tolerate a regular meal. I have recommended starting patient on Reglan and Zofran to see if that would help him. Patient may require TPN or PPN. 09/05 patient's creatinine is labile. Patient eating but not very well. Spoke with oncology who was okay to discharge the patient home. Patient has pain medications at home.
--- NOTE | 2020-09-05 17:46 | PDOC.DS.DS ---
Provider - Provider Date of Admission: 08/29/20 12:21 Date of Discharge: 09/05/20 Admitting Provider: Aniket Donnelly MD Primary Care Physician: ROSANNA DANG [facility] Course - Hospital Course Hospital Course: Patient is a 45-year-old male who initially presented to the hospital with complaints of abdominal pain and distention. Patient has metastatic melanoma currently on chemotherapy Keytruda. Patient had CT abdomen pelvis which indicated new left pleural effusion and pericardial effusion also worsening of metastatic disease in the liver and abdominal adenopathy. This was new compared to his recent exams. Also noted portal vein thrombosis Patient was started on anticoagulation for his portal vein. He also had acute kidney injury and was initially treated with IV hydration and then with diuretics his creatinine improved. Patient had no shortness of breath on exertion. However his oral intake has worsened. Patient will be discharged home will follow up with oncology clinic in couple days. Patient most likely will require to go to [facility] for further evaluation. Resuscitation Status: 08/29/20 13:06 Resuscitation Status Routine Co-Sign Provider: Resuscitation Status: FULL: Full Resuscitation Discussed with: patient and spouse Additional comments: DINESH is , Janette at [phone] - Labs Lab Results: 09/05/20 07:37 09/05/20 11:50 Abnormal Lab Results - Last 48 hrs 09/04/20 09:21: Sodium 131 L, Chloride 97 L, Carbon Dioxide 13 L, Anion Gap 26 H, BUN 52 H, Creatinine 1.65 H 09/04/20 09:21: RBC 2.58 L, Hgb 7.6 L, Hct 24.6 L, MCHC 30.8 L, RDW 21.6 H, Plt Count 114 L, Band Neuts % (Manual) 16 H, Lymphocytes % (Manual) 5 L, Monocytes % (Manual) 11 H, Polychromasia MODERATE = 3-4 cells H, Anisocytosis MODERATE=16-30 cells H 09/04/20 09:21: Total Bilirubin 2.0 H, Direct Bilirubin 1.3 H, AST 447 H, ALT 80 H, Alkaline Phosphatase 416 H, Serum Total Protein 5.5 L, Albumin 2.9 L 09/05/20 07:37: Sodium 128 L, Potassium 5.2 H, Chloride 94 L, Carbon Dioxide 17 L, Anion Gap 22 H, BUN 58 H, Creatinine 1.80 H 09/05/20 07:37: RBC 2.59 L, Hgb 7.9 L, Hct 25.1 L, MCHC 31.3 L, RDW 22.3 H, Neutrophils % 84.1 H, Lymphocytes % 5.4 L, Basophils % 1.1 H, Neutrophils # 6.8 H, Lymphocytes # 0.4 L, Monocytes # 0.7 H, Clumped Platelets MODERATE H 09/05/20 07:37: Total Bilirubin 1.9 H, Direct Bilirubin 0.8 H, AST 366 H, ALT 77 H, Alkaline Phosphatase 429 H, Albumin 3.0 L 09/05/20 11:50: Sodium 129 L, Chloride 94 L, Carbon Dioxide 21 L, BUN 58 H, Creatinine 1.67 H - Physical Exam Vitals: Vital Signs (12 hours) Temp Pulse Resp BP Pulse Ox 09/05/20 07:55 98.1 F 111 H 18 119/56 L 94 L Weight Admit Weight 238 lb Weight 232 lb 2 oz Physical Exam: The patient was seen and examined on the day of discharge. Problem - Discharge Plan Assessment: (1) Abdominal pain Code(s): R10.9 - UNSPECIFIED ABDOMINAL PAIN Status: Acute Qualifiers: Abdominal location: generalized Qualified Code(s): R10.84 - Generalized abdominal pain (2) Malignant melanoma, metastatic Code(s): C79.9 - SECONDARY MALIGNANT NEOPLASM OF UNSPECIFIED SITE Status: Acute (3) Liver metastases Code(s): C78.7 - SECONDARY MALIG NEOPLASM OF LIVER AND INTRAHEPATIC BILE DUCT Status: Acute (4) Portal vein thrombosis Code(s): I81 - PORTAL VEIN THROMBOSIS Status: Acute (5) GERD (gastroesophageal reflux disease) Code(s): K21.9 - GASTRO-ESOPHAGEAL REFLUX DISEASE WITHOUT ESOPHAGITIS Status: Chronic Qualifiers: Esophagitis presence: esophagitis presence not specified Qualified Code(s): K21.9 - Gastro-esophageal reflux disease without esophagitis (6) Hyperlipidemia Code(s): E78.5 - HYPERLIPIDEMIA, UNSPECIFIED Status: Chronic Qualifiers: Hyperlipidemia type: unspecified Qualified Code(s): E78.5 - Hyperlipidemia, unspecified (7) Hypertension Code(s): I10 - ESSENTIAL (PRIMARY) HYPERTENSION Status: Chronic Qualifiers: Hypertension type: essential hypertension Qualified Code(s): I10 - Essential (primary) hypertension (8) Obesity (BMI 30.0-34.9) Code(s): E66.9 - OBESITY, UNSPECIFIED Status: Chronic (9) Anasarca Code(s): R60.1 - GENERALIZED EDEMA Status: Acute (10) Hypoalbuminemia Code(s): E88.09 - OT DISORDERS OF PLASMA-PROTEIN METABOLISM, NEC Status: Acute Plan - Discharge Medications Prescriptions: Apixaban [Eliquis] 5 mg PO BID #30 tab Furosemide [Lasix] 40 mg PO DAILY-AC #30 tab Polyethylene Glycol 3350 [Miralax] 17 gm PO DAILYPRN PRN #30 pk PRN Reason: Constipation Morphine ER [MS Contin] 30 mg PO TID #90 tab Pantoprazole [Protonix] 40 mg PO DAILY #30 tab Sennosides [Senokot] 2 tab PO BID #60 tab Home Medications: Medication Instructions Recorded Confirmed Type Zolpidem Tartrate [Ambien] 5 mg PO HS PRN #30 tab 07/02/20 08/29/20 Rx Allopurinol [Zyloprim] 200 mg PO DAILY #60 tablet 08/17/20 08/29/20 Rx Apixaban [Eliquis] 5 mg PO BID #30 tab 09/05/20 Rx Furosemide [Lasix] 40 mg PO DAILY-AC #30 tab 09/05/20 Rx Morphine ER [MS Contin] 30 mg PO TID #90 tab 09/05/20 Rx Pantoprazole [Protonix] 40 mg PO DAILY #30 tab 09/05/20 Rx Polyethylene Glycol 3350 [Miralax] 17 gm PO DAILYPRN PRN #30 pk 09/05/20 Rx Sennosides [Senokot] 2 tab PO BID #60 tab 09/05/20 Rx Allergies: No Known Allergies Allergy (Verified 08/30/20 03:21) - Discharge Instructions Discharge Instructions:: Notify MD or return to ER for any of the following symptoms: fever, chills, uncontrolled/unrelieved pain, increased swelling, decreased urine output with adequate water intake, chest pain, or shortness of breath. Activity:: Activity as Tolerated Nourishment:: Heart Healthy Diet - Follow up Plan Referrals: [facility] [Outside] ([facility] will call you. If no call in a day or two after discharge, call them.) Bruna Watson MD [Active] - 09/07/20 9:15 am [facility] [Primary Care Provider] - 10 Days (Call office to schedule follow-up appointment) Disposition: HOME Quality - Care Measures CORE MEASURES:: N/A
== END 2020-09-05 17:00 | disposition home or self-care (01) | DRG 435 ==
LOC: ERS 09:57 → ONC 12:21
PROVIDERS: ADMIT Internal Medicine; ATTEND Internal Medicine
DX: C78.7 Secondary malignant neoplasm of liver and intrahepatic bile duct (principal); I81 Portal vein thrombosis; E87.2 Acidosis; E87.1 Hypo-osmolality and hyponatremia; N17.9 Acute kidney failure, unspecified; R18.8 Other ascites; I10 Essential (primary) hypertension; J44.9 Chronic obstructive pulmonary disease, unspecified; E78.00 Pure hypercholesterolemia, unspecified; K21.9 Gastro-esophageal reflux disease without esophagitis; M10.9 Gout, unspecified; E66.9 Obesity, unspecified; K59.00 Constipation, unspecified; Z20.822 Contact with and (suspected) exposure to COVID-19; E88.09 Other disorders of plasma-protein metabolism, not elsewhere classified; Z51.5 Encounter for palliative care; Z87.891 Personal history of nicotine dependence; Z79.899 Other long term (current) drug therapy; Z98.890 Other specified postprocedural states; Z68.32 Body mass index [BMI] 32.0-32.9, adult; Z92.21 Personal history of antineoplastic chemotherapy
CPT/HCPCS: 36415; 71045; 74177; 76705; 80048; 80053; 80076; 81003; 82140; 82248; 82550; 83605; 83615; 83690; 83735; 84100; 84550; 85007; 85025; 85027; 85610; 85730; 87635; 93005; 96374; 96375; C9113; J1650; J1940; J2270; J2405; J2550; J2765; P9047; Q0162; Q9967; U0003

== ENCOUNTER 2020-09-10 13:06 | Inpatient (IN) | payer BC ==
--- NOTE | 2020-09-10 14:38 | RAD ---
Exam: 1 view abdomen HISTORY: Evaluate for bowel obstruction. FINDINGS: One view abdomen demonstrates a nonspecific bowel gas pattern. No suspicious densities in t he abdomen. Calcifications in the right hemipelvis are presumed to be phleboliths. No acute osseous abnormalities IMPRESSION: Nonspecific bowel gas pattern. No radiographic evidence of bowel obstruction.
[2020-09-10 17:23] LABS: Hemoglobin 7.3 g/dL (14.0-18.0); Mean Corpuscular HGB CONC 30.7 g/dL (32.0-36.0); Mean Corpuscular Hemoglobin 30.4 pg (27.0-31.0); Mean Corpuscular Volume 99.1 fL (78.0-98.0); Platelet Count 132 thou/uL (130-400); RBC Distribution Width 23.9 % (11.5-14.5); Red Blood Cell (RBC) Count 2.39 mill/uL (4.70-6.10)
[2020-09-10 17:27] LABS: INR-International Normal Ratio 2.8; PTT 43.7 sec (22.9-36.1); Prothrombin Time 29.9 sec (12.0-14.7)
[2020-09-10 17:59] LABS: Anion Gap 36 mmol/L (10-20); BUN (Urea Nitrogen) 122 mg/dL (8.9-20.6); Calc. Creatinine Clearance 0 mL/min (70-130); Carbon Dioxide 8 mmol/L (22-29); Chloride 93 mmol/L (98-107); Potassium 6.5 mmol/L (3.5-5.1); Sodium 130 mmol/L (136-145)
[2020-09-10 18:00] LABS: ALT (SGPT) 94 U/L (8-55); AST (SGOT) 534 U/L (5-34); Alkaline Phosphatase 327 U/L (40-110); Anisocytosis MODERATE=16-30 cells (100X) (0-5/hpf); Band 11 % (5-11); Basophilic Stippling SLIGHT = 1-2 cells (100X) (None Seen); Bilirubin, Total 2.4 mg/dL (0.2-1.2); CK (CPK) 90 U/L (30-200); Calcium 8.4 mg/dL (7.8-10.44); Globulin 2.8 g/dL (2.4-3.5); Glucose 73 mg/dL (70-105); Lipase 81 U/L (8-78); Lymphocytes 7 % (21-51); MDiff Complete? YES; Metamyelocyte 3 % (0-0); Monocytes 9 % (0-10); Myelocyte 3 % (0-0); Neutrophil 67 % (42-75); Nucleated RBC 4 % (0); Platelet Morphology Comment Appears Adequate; Polychromasia MODERATE = 3-4 cells (100X) (0-2/hpf); Protein, Total 5.8 g/dL (6.0-8.3); Spherocytes SLIGHT = 1-5 cells (100X) (None Seen); Target Cells SLIGHT = 2-5 cells (100X) (0-1/hpf); White Blood Cell (WBC) Count 12.3 thou/uL (4.8-10.8)
[2020-09-10] MEDS ORDERED: Senokot S 8.6-50 MG TAB PO PRN (18:20)
[2020-09-10] MEDS ORDERED: Acetaminophen 325 MG TAB PO PRN (18:20)
[2020-09-10] MEDS ORDERED: HYDROcodone/Acetaminophen 5/325 mg Tablet PO PRN (18:20)
[2020-09-10] MEDS ORDERED: Ondansetron ODT 4 MG TAB PO PRN (18:20)
[2020-09-10] MEDS ORDERED: Insulin Regular 300 UNITS/3 ML VIAL ONE (18:38)
[2020-09-10] MEDS ORDERED: Dextrose 50% Abboject 50 ML SYRINGE ONE (18:38)
[2020-09-10] MEDS ORDERED: Calcium Chloride 1 GM/10 ML Abboject SYRINGE ONE (18:38)
[2020-09-10] MEDS ORDERED: Furosemide 40 MG/4 ML VIAL ONE (18:38)
[2020-09-10] MEDS ORDERED: Sodium Bicarb 50 MEQ/50 ML Abboject 8.4% SYRINGE ONE (18:38)
--- NOTE | 2020-09-10 18:43 | RAD ---
Portable frontal chest radiograph: 09/10/2020 COMPARISON: 08/29/2020 HISTORY: Shortness of breath, bowel obstruction FINDINGS: There is mild elevation of the right hemidiaphragm. Mild diffuse increased linear interstit ial density noted. No pneumothorax or pleural fluid. No focal consolidation or alveolar edema. IMPRESSION: Nonspecific increased linear interstitial density with no focal consolidation or alveolar edema
[2020-09-10] MEDS ORDERED: Sodium Bicarb 50 MEQ/50 ML VIAL ONE (18:44)
[2020-09-10] MEDS ORDERED: Ondansetron PF 4 MG/2 ML Vial ONE (18:58)
[2020-09-10] MEDS ORDERED: Sodium Chloride 0.9% 1,000 ML IV SCH (19:00)
[2020-09-10] MEDS ORDERED: Sodium Bicarb 50 MEQ/50 ML Abboject 8.4% SYRINGE IVP SCH (19:30)
--- NOTE | 2020-09-10 19:39 | CON ---
DATE OF CONSULTATION: This is a nephrology consult. REASON FOR CONSULTATION: Hyperkalemia. HISTORY OF PRESENT ILLNESS: This is a very pleasant 45-year-old gentleman, presented to the hospital with weakness. The patient was noted to have hyperkalemia as well as metabolic acidosis. The patient denies any nausea, vomiting, or chest pain. PAST MEDICAL HISTORY: Significant for hypertension, metastatic melanoma, GERD, gout, left shoulder skin biopsy melanoma, orthopedic surgery. SOCIAL HISTORY: No alcohol or drug use. FAMILY HISTORY: Negative for ESRD. ALLERGIES: REVIEWED. HOME MEDICATIONS: List reviewed. HOSPITAL MEDICATIONS: List reviewed. REVIEW OF SYSTEMS: 15-point review of systems was performed, negative except for positives noted above: HEENT: Eyes intact, no diplopia. Ears: No hearing loss or earache. Nose: No discharge or bleeding. Chest: No cough or phlegm. Abdomen: No nausea or vomiting. Genitourinary: No hematuria. No Hand catheter. Musculoskeletal: No low back pain. No joint swelling or pain. Neurological: No syncope. No seizures. Skin: No complaints of rash or itching. Psychiatric: No depression. Constitutional: No weight loss or loss of appetite. PHYSICAL EXAMINATION: GENERAL: The patient is awake, alert. VITAL SIGNS: Afebrile. Pulse 75, breathing at 16, blood pressure was 130/70. HEENT: Head normocephalic and atraumatic. Eyes intact, no ulcers. Nose intact, no ulcers. Ears intact, no ulcers. Neck: Supple. No JVD. Chest: Symmetrical and clear. Cardiovascular: Shows S1 and S2, no rub, no murmur. Gastrointestinal: Abdomen is soft, bowel sounds positive. Extremities: Show no edema or ulcers. Skin: Shows no rash or petechiae. Musculoskeletal: Shows no joint swelling or stiffness. Genitourinary: Shows no Hand or CVA tenderness. Neurologic: Motor intact. Cranial nerves intact. LABS: Reviewed. ASSESSMENT: 1. Acute kidney injury with chronic kidney disease. Would recommend aggressive hydration, and if repeat potassium is high, would recommend dialysis. Hyperkalemia, will correct acidosis. 2. Metabolic acidosis. Would recommend GI imaging and surgical consultation as indicated. Would recommend bicarb replacement. 3. Hyperkalemia. Plan bicarbonate replacement and hydration. If does not improve, would recommend dialysis. Overall prognosis is poor. Recommend palliative care consultation. Job ID: [id number]
--- NOTE | 2020-09-10 19:46 | HP ---
CHIEF COMPLAINT: Abnormal labs and anemia. HISTORY OF PRESENT ILLNESS: A 45-year-old male with a history of metastatic melanoma, severe anemia, went to see Dr. Watson in the clinic, noted to have abnormal labs including potassium of 6.5 and a hemoglobin of 7.3. Dr. Watson sent him to the ER for transfusion and admission for further electrolyte management. The patient has constipation for the last 6 days. He states he is not passing gas. A KUB showed nonspecific bowel gas pattern. No sonographic evidence of bowel obstruction. The patient had 3 episodes of emesis; 1 in the clinic, 2 in the ER so far. He is getting transfusion of packed RBCs. His creatinine is 3.1. His baseline creatinine is 1.5, seen by Dr. Combs in the past. ER physician notified Dr. Combs. The patient also presenting with hyperkalemia with a potassium of 6.5 and bicarb of 8. He is getting IV Lasix, Kayexalate, calcium bicarbonate, as well as insulin in the ER for hyperkalemia protocol. Patient will be admitted for further care. at bedside. Patient was admitted in July for abdominal pain and distention. REVIEW OF SYSTEMS: Patient did not have any fever, night sweats, or chills. No productive cough. Denies any tingling or numbness currently that is different from his baseline. No noticeable blood in the urine or stool per patient. He had some episode of hematemesis, but nothing today during his emesis. ALLERGIES: HE HAS NO KNOWN DRUG ALLERGIES. PAST MEDICAL HISTORY: 1. History of metastatic melanoma, on chemotherapy. 2. History of tumor lysis syndrome. 3. History of GERD. 4. History of anasarca with fluid overload. 5. Chronic kidney disease. 6. Hypertension. 7. Hyperlipidemia. 8. Gout. MEDICATIONS: 1. Ambien 5 mg at bedtime. 2. Allopurinol 200 mg daily. 3. Eliquis 5 mg twice a day. 4. Lasix 40 mg daily. 5. Protonix 40 mg daily. 6. Senokot. 7. Maalox. PAST SURGICAL HISTORY: Left shoulder skin biopsy, melanoma surgical excision in 2014, left shoulder orthopedic surgery. SOCIAL HISTORY: He used to drink at least 3 liquor drinks per night, quit in July 2020. Ex smoker, last smoked 10 years ago. No illicit drug use. FAMILY HISTORY: Significant for lung and ovarian cancer. PHYSICAL EXAMINATION: VITAL SIGNS: He is afebrile, normotensive, and he is saturating 95% on room air. GENERAL: He appears quite distressed with his several comorbidities. SKIN: I did not see any rash in his body, but he looks quite icterus. HEENT: Pupils are equal, round, and reactive to light. Anicteric. Mucous membranes moist. CARDIOVASCULAR: Regular rate and rhythm without murmurs, rubs, or gallops. LUNGS: Clear to auscultation bilaterally. Some wheezing and crackles appreciated in the lower lung zones. ABDOMEN: Quite distended. He does have bowel sounds, but it is diminished. It is not tender to palpation. He does not have rigidity. EXTREMITIES: Lower extremities with trace ankle edema. No rash noted. PSYCHIATRIC: Appropriate mood and affect. Of course, he looks quite depressed as well. LABORATORY STUDIES: Sodium 130, potassium 6.5, chloride 93, bicarb 8, creatinine 3.12, BUN 122. Liver function tests; AST 534, ALT 94, alkaline positive 327, lipase is 81. WBC 12.3, hemoglobin 7.3, platelets 132. D-dimer is 2.8. Abdominal x-ray showed nonspecific gas pattern. IMPRESSION AND PLAN: 1. This is a 45-year-old male with metastatic melanoma. Previous admission in July and discharged on September 05, presenting with very similar complaint of abdominal distention. 2. Hemoptysis. 3. Ongoing chronic anemia with current hemoglobin of 7.3. 4. Clinically small bowel obstruction. 5. Acute kidney injury on chronic kidney disease stage 2. 6. Hyperkalemia. 7. Severe metabolic acidosis. 8. Hyponatremia. He has several acute comorbidities. We will try to correct his electrolyte abnormalities with bicarb infusion, calcium gluconate, insulin, and Kayexalate. We will repeat the potassium level this evening around 10 p.m., morning labs including liver function tests. 9. Transaminase elevations, probably reflective of portal congestion versus metastatic melanoma. 10. Hemoptysis. The patient did have episode of hemoptysis in the clinic. It is prudent to put him on NG tube given the abdominal distention as well as emesis. He is alert, oriented, and protecting his airway, but NG tube will hopefully improve the abdominal distention and prevent him for the risk of aspiration with ongoing emesis. 11. Constipation. We will try to resolve this abdominal distention and if he is clinically improved, then we will give him stool softeners p.o. If he is not improved, consider General Surgery consult tomorrow. 12. Palliative has seen him in the past. We will also consult them given his acuity. Code status has to be addressed. 13. DVT prophylaxis. We will hold his Eliquis given his hemoptysis and we are giving a transfusion at this time. 14. Rest of the management based on clinical course. Job ID: [id number] MTDD
--- NOTE | 2020-09-10 19:56 | CT ---
CT of abdomen and pelvis: 09/10/2020 COMPARISON: 08/29/2020 and 08/12/2020 HISTORY: Left flank pain TECHNIQUE: Axial CT imaging at 5 mm intervals from lung bases through pubic symphysis without contras t. Coronal reformatted imaging obtained. FINDINGS: Lack of contrast media limits assessment of the viscera, bowel, vascular structures, and fo r lymphadenopathy. The visualized lung bases are unremarkable. The liver is markedly enlarged and almost completely replaced with tumor, not well characterized on t his examination secondary to the lack of contrast media but not significantly changed when compared to the 08/29/2020 CT. There is small volume pericardial fluid and left pleural fluid which is a less conspicuous than on the most recent prior exam. There are a few enlarged paracardiac lymph nodes which are similar when compared to the prior exam. The spleen appears normal in size. No free intrape ritoneal air. Soft tissue masses in the radha hepatis and peripancreatic region are again noted, not optimally characterized on this examination, evidence of lymphadenopathy. There are numerous enla rged lymph nodes seen throughout the mesentery and retroperitoneum, most prominent within the central mesentery in the left para-aortic region, evidence of extensive metastatic lymphadenopathy. The portal vein is expanded consistent with the patient's history of portal vein thrombosis. The sple en, adrenal glands, and kidneys demonstrate no acute findings. The pancreas and the gallbladder are not optimally assessed on this exam. There is multifocal mesenteric nodularity within the left upper quadrant consistent with peritoneal c arcinomatosis. There is small volume free fluid adjacent to the right lobe of the liver superiorly/anteriorly. There is significant free fluid in the bilateral paracolic gutters, right grea ter than left, extending into the pelvis, similar when compared to the prior exam. There is stranding of the subcutaneous fat in the region of the thighs bilaterally and there are areas of stra ndy increased density within the fat within the posterior flank regions suggesting a degree of stable anasarca. There is no evidence for obstruction of the large or the small bowel. Review of the osseous structures demonstrates no acute findings. IMPRESSION: Markedly enlarged liver with extensive tumor replacement. Prominent rdaha hepatis, mesent leobardo, and retroperitoneal metastatic lymphadenopathy. Findings suspicious for peritoneal carcinomatosis. No evidence for free intraperitoneal air or small bowel obstruction.
[2020-09-10 20:07] LABS: Bilirubin Negative (Negative); Blood, Urine Negative (Negative); Clarity Clear (Clear); Glucose, Urine (Dipstick) Normal (Negative); Ketone, Urine Negative (Negative); Leukocyte Negative Leu/uL (Negative); Nitrite Negative (Negative); Protein, Urine (Dipstick) 20 mg/dL (Neg-Trace); Specific Gravity, Urine 1.013 (1.002-1.036)
[2020-09-10 21:59] LABS: Anion Gap 29 mmol/L (10-20); BUN (Urea Nitrogen) 112 mg/dL (8.9-20.6); Calc. Creatinine Clearance 0 mL/min (70-130); Calcium 8.6 mg/dL (7.8-10.44); Carbon Dioxide 17 mmol/L (22-29); Chloride 94 mmol/L (98-107); Glucose 83 mg/dL (70-105); Potassium 5.2 mmol/L (3.5-5.1); Sodium 135 mmol/L (136-145)
[2020-09-11 00:14] VITALS: BMI 30.3
[2020-09-11] MEDS ORDERED: Acetaminophen 650 MG Suppository PR PRN (04:04)
[2020-09-11 05:53] LABS: Band 15 % (5-11); Hemoglobin 8.1 g/dL (14.0-18.0); Hypochromia SLIGHT = 6-15 cells (100X) (0-5/hpf); Lymphocytes 5 % (21-51); MDiff Complete? YES; Mean Corpuscular HGB CONC 32.1 g/dL (32.0-36.0); Mean Corpuscular Hemoglobin 30.2 pg (27.0-31.0); Mean Corpuscular Volume 94.1 fL (78.0-98.0); Mean Platelet Volume 7.5 fL (7.4-10.4); Monocytes 9 % (0-10); Neutrophil 71 % (42-75); Platelet Count 96 thou/uL (130-400); Platelet Morphology Comment Appears Decreased; RBC Distribution Width 20.7 % (11.5-14.5); Red Blood Cell (RBC) Count 2.67 mill/uL (4.70-6.10); White Blood Cell (WBC) Count 8.7 thou/uL (4.8-10.8)
[2020-09-11 06:04] LABS: ALT (SGPT) 96 U/L (8-55); AST (SGOT) 560 U/L (5-34); Albumin 2.7 g/dL (3.5-5.0); Alkaline Phosphatase 280 U/L (40-110); Anion Gap 25 mmol/L (10-20); BUN (Urea Nitrogen) 121 mg/dL (8.9-20.6); Bilirubin, Total 2.4 mg/dL (0.2-1.2); Calc. Creatinine Clearance 44 mL/min (70-130); Calcium 8.3 mg/dL (7.8-10.44); Carbon Dioxide 18 mmol/L (22-29); Chloride 95 mmol/L (98-107); Globulin 2.2 g/dL (2.4-3.5); Glucose 84 mg/dL (70-105); Protein, Total 4.9 g/dL (6.0-8.3); Sodium 133 mmol/L (136-145)
[2020-09-11 06:08] LABS: ALT (SGPT) 94 U/L (8-55); AST (SGOT) 549 U/L (5-34); Albumin 2.7 g/dL (3.5-5.0); Alkaline Phosphatase 287 U/L (40-110); Bilirubin, Direct 1.8 mg/dL (0.1-0.3); Bilirubin, Total 2.4 mg/dL (0.2-1.2)
--- NOTE | 2020-09-11 10:14 | PDOC.HOSPP ---
- Subjective Encounter Date: 09/11/20 Encounter Time: 10:12 Subjective: rambling, grossly oriented - Objective Vital Signs & Weight: Vital Signs (12 hours) Temp Pulse Pulse Resp BP BP Pulse Ox 09/11/20 09:46 109 H 94 L 09/11/20 08:27 98.2 F 116 H 18 108/58 L 93 L 09/11/20 03:56 97.3 F L 107 H 18 98/63 94 L 09/11/20 01:20 97.3 F L 105 H 18 95/60 96 Weight Weight 217 lb 9.54 oz I&O: 09/10/20 09/11/20 09/12/20 06:59 06:59 06:59 Intake Total 1180 Balance 1180 Result Diagrams: 09/11/20 05:09 09/11/20 05:09 - Exam General Appearance: ill appearing Neck: no JVD Heart: RRR, no murmur Respiratory: CTAB Gastrointestinal: soft, distended, diminished bowl sounds Extremities - other findings: anasarca, diffuse Hosp A/P (1) Acute renal failure Status: Acute Qualifiers: Acute renal failure type: unspecified Qualified Code(s): N17.9 - Acute kidney failure, unspecified (2) Anasarca Code(s): R60.1 - GENERALIZED EDEMA Status: Acute (3) Anemia Code(s): D64.9 - ANEMIA, UNSPECIFIED Status: Acute Qualifiers: Anemia type: unspecified type Qualified Code(s): D64.9 - Anemia, unspecified (4) Malignant melanoma, metastatic Code(s): C79.9 - SECONDARY MALIGNANT NEOPLASM OF UNSPECIFIED SITE Status: Chronic (5) Palliative care encounter Code(s): Z51.5 - ENCOUNTER FOR PALLIATIVE CARE Status: Acute (6) GERD (gastroesophageal reflux disease) Code(s): K21.9 - GASTRO-ESOPHAGEAL REFLUX DISEASE WITHOUT ESOPHAGITIS Status: Chronic Qualifiers: (7) Hyperlipidemia Code(s): E78.5 - HYPERLIPIDEMIA, UNSPECIFIED Status: Chronic Qualifiers: Hyperlipidemia type: unspecified Qualified Code(s): E78.5 - Hyperlipidemia, unspecified (8) Hypertension Code(s): I10 - ESSENTIAL (PRIMARY) HYPERTENSION Status: Chronic Qualifiers: - Plan metastatic disease with high tumor burden anasarca acute renal failure prognosis guarded, palliative care, discuss with oncology
[2020-09-11] MEDS: Sodium Chloride 0.9% 1,000 ML IV SCH ×3 (10:47→21:19)
[2020-09-11] MEDS: Morphine 4 MG/ML VIAL SLOW IVP PRN ×2 (10:48→15:36)
[2020-09-11] MEDS: Ondansetron PF 4 MG/2 ML Vial IVP PRN ×2 (11:19→17:34)
--- NOTE | 2020-09-11 12:00 | PRG ---
DATE OF SERVICE: SUBJECTIVE: A 45-year-old gentleman being seen for acute kidney injury. The patient denies any nausea, vomiting, or chest pain. PHYSICAL EXAMINATION: General: The patient is resting. Vital Signs: Afebrile, pulse 79, breathing at 16, blood pressure 98/63. HEENT: Head normocephalic and atraumatic. Eyes intact, no ulcers. Nose intact, no ulcers. Ears intact, no ulcers. Neck: Supple. No JVD. Chest: Symmetrical and clear. Cardiovascular: Shows S1 and S2, no rub, no murmur. Gastrointestinal: Abdomen is distended. Extremities: Has 4+ edema. Skin: Shows no rash or petechiae. Musculoskeletal: Shows no joint swelling or stiffness. Genitourinary: Shows no Hand or CVA tenderness. Neurologic: Motor intact. Cranial nerves intact. LABORATORY DATA: Shows potassium is 5. ASSESSMENT AND PLAN: Acute kidney injury with chronic kidney disease stage 4 with uremia. Discussed risks versus benefits of dialysis. The patient is undecided. is undecided. I would recommend hospice. Hyperkalemia, improved. Metabolic acidosis, improved. Continue bicarbonate. Overall prognosis is poor. I would recommend palliative care consultation. The patient has multiorgan failure. Job ID: [id number]
[2020-09-11 12:34] LABS: SARS-CoV-2 MS2 Positive; SARS-CoV-2 N Gene Negative; SARS-CoV-2 S Gene Negative; SARS-CoV-2 by NAA Not Detected (NotDetected); SARS-CoV-2 orf1ab Negative
--- NOTE | 2020-09-11 15:03 | PDOC.PALCO ---
Palliative Care Consult - Consult Details Requesting Physician: Dr Watson/Dr Titus Reason for Consult: goals of care, assistance with communication prognosis/disease, complex decision-making Family Members Present: Patient - Pertinent HPI Mr Segura is familiar to palliative care. He was recently discharged from the hospital to home setting, hopeful for continued treatment for his metastatic melanoma with significant tumor burden. He Has transition to wheelchair secondary to decrease in ability to safely ambulate. Increasing metastatic disease posing anasarca, tumor lysis. Decline in intake, decrease in hemoglobin, 6.4. Hemoptysis lethargy and confusion. Sent to emergency room for further evaluation. Admission for hydration and pain related to increasing tumor burden. Pronounced ascities, renal compromise, increasing bili, hyperkalemia. - Pertinent PMH Metastatic melanoma, hepatic vein tumor thrombus, hypertension - Social History Smoking Status: Former smoker Smoking: quit greater than 1 year Alcohol Use: occasional Drug Use History: none Living Situation: - Medications MAR Reviewed: Yes - Allergies Allergies/Adverse Reactions: Allergies Allergy/AdvReac Type Severity Reaction Status Date / Time No Known Allergies Allergy Verified 08/30/20 03:21 - Subjective Lethargic, confused. at bedside. Unable to fully engage in review of system or discussion as not decisional. - ROS Non Response: due to mental status - Objective Vital Signs: Vital Signs - Most Recent Temp Pulse Resp BP Pulse Ox 97.5 F L 119 H 18 109/70 94 L 09/11/20 11:35 09/11/20 11:35 09/11/20 11:35 09/11/20 11:35 09/11/20 14:47 Palliative Performance Scale: 30 - Physical Exam Constitutional: cachectic, ill appearing, mild distress HEENT: EOMI, moist MMs Respiratory: no wheezing, diminished lung sound, labored respirations Gastrointestinal: positive bowel sounds Deviation from normal: Distended Musculoskeletal: edema present, diffuse muscle atrophy Neurology: no focal deficits Skin: cap refill <2 seconds, fragile Deviation from normal: icteric Deviation from normal: Oriented to self, aware of and location. - Plan/Recommendations Plan: Lengthy discussion in relation to metastatic disease and poor prognosis. Patient not decisional. Discussed resuscitation status and poor outcome. Attempted to have provide teach back. Discussion in relation to hospice, poor prognosis. hopeful for follow up at [facility], discussed guarded condition and rapidly spreading cancer. Emotional support and therapeutic listening. Blood transfusion. Hydration. Communicated with Dr Watson, Dr Sexton [90] minutes spent on this encounter with >50% of the time in counseling and coordination of care. Thank you for this very appropriate consult.
--- NOTE | 2020-09-11 15:07 | PDOC.FMACP ---
Advance Care Planning - Problem (1) Acute renal failure Status: Acute Qualifiers: Acute renal failure type: unspecified Qualified Code(s): N17.9 - Acute kidney failure, unspecified (2) Anasarca Status: Acute Code(s): R60.1 - GENERALIZED EDEMA (3) Liver metastases Status: Acute Code(s): C78.7 - SECONDARY MALIG NEOPLASM OF LIVER AND INTRAHEPATIC BILE DUCT (4) Palliative care encounter Status: Acute Code(s): Z51.5 - ENCOUNTER FOR PALLIATIVE CARE (5) Malignant melanoma, metastatic Status: Chronic Code(s): C79.9 - SECONDARY MALIGNANT NEOPLASM OF UNSPECIFIED SITE - Note Participants: surrogate decision-maker, palliative care Summary: Revisited Advanced Care Planning with patient . The diagnosis, prognosis and goals of care were discussed. Appropriate forms and documentation to accomplish the goals of care were discussed. All questions were answered. Goals: *Transition to [facility] *Home with hospice, Choice list provided CM order placed and made aware *OOHDNAR completed Communicated with Dr Bull, Dr Watson, and Pelon Mason Emotional support and therapeutic listening. As goals of care identified and directives addressed Palliative Care will sign off. If we can re assist please re consult our team, thank you for this very appropriate consult. Time Spent (mins): 40
--- NOTE | 2020-09-11 21:14 | CON ---
DATE OF CONSULTATION: REASON FOR CONSULT: Metastatic melanoma. HISTORY OF PRESENT ILLNESS: Mr. Segura is a pleasant 45-year-old gentleman who has metastatic melanoma with heavy tumor burden. He was diagnosed with metastatic disease in July 2020. His original melanoma was in 2012. He has had tumor thrombus of the hepatic vein. Unfortunately, he has had multiple hospitalizations over the last several weeks for increasing metastatic disease, anasarca, and tumor lysis. He has received 2 doses of Keytruda and was due for his third dose today. He was seen in the clinic yesterday for followup. He was in a wheelchair. He had temporal wasting. He was eating very little. His hemoglobin was 6.4. He was complaining of hemoptysis. He was sleeping poorly and slightly confused. He was sent to the ER for admission. There was no beds available for a direct admit. His chemistry showed worsening renal function, hyperkalemia. His uric acid and LDH were elevated. His bilirubin had increased. Code status and hospice options were discussed with the patient and and he declined hospice at this time. He has been admitted and Dr. Combs has seen the patient, who saw him on his prior hospitalization. He has been getting IV hydration and pain control. PAST MEDICAL HISTORY: 1. Metastatic melanoma with multiple hospitalizations for progressive disease. 2. Hepatic vein tumor thrombus. 3. Hypertension. 4. Hyperlipidemia. 5. GERD. PAST SURGICAL HISTORY: 1. Shoulder surgery. 2. Melanoma resection in 2012. ALLERGIES: NO KNOWN DRUG ALLERGIES. HOME MEDICATIONS: 1. Prilosec. 2. Hydrochlorothiazide. 3. [place]. 4. Lisinopril. 5. Pravastatin. 6. Allopurinol. 7. Lasix. 8. Midodrin. 9. MS Contin. 10. Potassium chloride. 11. Senokot-S. FAMILY HISTORY: Noncontributory. SOCIAL HISTORY: , has 2 children. Lives with his spouse. No alcohol, tobacco, or illicit drug use. REVIEW OF SYSTEMS: A 10-point review of systems is negative except for noted in HPI. PHYSICAL EXAMINATION: VITAL SIGNS: Temperature is 97.5, pulse is 119, respiratory rate 18, BP is 109/70. He is 94% on room air. GENERAL: This is a very ill-appearing male. HEENT: Normocephalic, atraumatic. Pupils are equal and reactive to light. CARDIOVASCULAR: Regular rate and rhythm. LUNGS: Clear anterior. ABDOMEN: Distended. He has palpable liver. EXTREMITIES: +3 to 4+ pitting edema. NEUROLOGICAL: Nonfocal. PERTINENT LABS AND X-RAYS: WBCs are 8.7, hemoglobin 8.1, hematocrit 25.1, platelet count is 96,000, 71% neutrophils, 15% bands, 5% lymphocytes. PT is 29.9, INR is 2.8, and PTT is 43.7. Sodium is 133, potassium 5, chloride 95, CO2 is 18, BUN is 121, creatinine 2.9, calcium 8.3, bilirubin is 2.4, AST is 549, ALT is 94, alkaline phosphatase is 287. Serum protein is 5, albumin 2.7, globulin 2.2, COVID PCR negative. ASSESSMENT: 1. Metastatic melanoma with rapid progression over the last several weeks. 2. Hemoptysis. 3. Hyperkalemia. 4. Acute kidney injury. DISCUSSION: Unfortunately, this very pleasant patient has significantly declined over the last several weeks. He and his have been seen by palliative care and the other physicians, who all agreed hospice and comfort care is appropriate at this time. Both he and his agree to DNR and to go home on hospice. Case Management is working on setting this up. Would continue pain control and hydration. Thank you for the consult. Job ID: [id number]
[2020-09-12] MEDS: Ondansetron PF 4 MG/2 ML Vial IVP PRN ×3 (00:34→14:08)
[2020-09-12] MEDS: Sodium Chloride 0.9% 1,000 ML IV SCH ×3 (05:07→14:09)
[2020-09-12] MEDS: Morphine 4 MG/ML VIAL SLOW IVP PRN ×2 (05:55→14:08)
--- NOTE | 2020-09-12 09:06 | PDOC.HOSPP ---
- Subjective Encounter Date: 09/12/20 Encounter Time: 08:59 Subjective: confused, ill appearing - Objective Vital Signs & Weight: Vital Signs (12 hours) Temp Pulse Resp BP Pulse Ox 09/12/20 08:35 97.1 F L 115 H 14 101/61 96 09/12/20 05:15 97.1 F L 115 H 20 98/56 L 97 09/11/20 23:30 97.6 F 104 H 16 102/62 96 Weight Admit Weight 217 lb 9.54 oz Weight 217 lb 9.54 oz I&O: 09/11/20 09/12/20 09/13/20 06:59 06:59 06:59 Intake Total 1180 3010 Output Total 1150 Balance 1180 1860 Result Diagrams: 09/11/20 05:09 09/11/20 05:09 Hospitalist ROS - Medication Medications: Active Medications Generic Name Dose Route Start Last Admin Trade Name Freq PRN Reason Stop Dose Admin Sodium Chloride 1,000 mls @ 120 mls/hr 09/11/20 10:00 09/12/20 05:56 Normal Saline 0.9% IV 1,000 mls .Q8H20M TIEN Administration Morphine Sulfate 4 mg 09/11/20 10:19 09/12/20 05:55 Morphine 4 Mg/Ml Vial SLOW IVP 4 mg Q4H PRN Administration Moderate to Severe Pain (6-10) Ondansetron HCl 4 mg 09/10/20 18:20 09/12/20 05:51 Ondansetron Pf 4 Mg/2 Ml Vial IVP 4 mg Q6H PRN Administration Nausea/Vomiting - Exam Neck: no JVD Heart: RRR, no murmur Respiratory - other findings: decreased BS Gastrointestinal: soft, distended, diminished bowl sounds Extremities: 2+ LE edema Hosp A/P (1) Acute renal failure Status: Acute Qualifiers: Acute renal failure type: unspecified Qualified Code(s): N17.9 - Acute kidney failure, unspecified (2) Anasarca Code(s): R60.1 - GENERALIZED EDEMA Status: Acute (3) Anemia Code(s): D64.9 - ANEMIA, UNSPECIFIED Status: Acute Qualifiers: Anemia type: unspecified type Qualified Code(s): D64.9 - Anemia, unspecified (4) Malignant melanoma, metastatic Code(s): C79.9 - SECONDARY MALIGNANT NEOPLASM OF UNSPECIFIED SITE Status: Chronic (5) Palliative care encounter Code(s): Z51.5 - ENCOUNTER FOR PALLIATIVE CARE Status: Acute (6) GERD (gastroesophageal reflux disease) Code(s): K21.9 - GASTRO-ESOPHAGEAL REFLUX DISEASE WITHOUT ESOPHAGITIS Status: Chronic Qualifiers: (7) Hyperlipidemia Code(s): E78.5 - HYPERLIPIDEMIA, UNSPECIFIED Status: Chronic Qualifiers: Hyperlipidemia type: unspecified Qualified Code(s): E78.5 - Hyperlipidemia, unspecified (8) Hypertension Code(s): I10 - ESSENTIAL (PRIMARY) HYPERTENSION Status: Chronic Qualifiers: - Plan metastatic disease with high tumor burden anasarca acute renal failure prognosis guarded, palliative care appreciate oncology input
[2020-09-12 11:52] VITALS: TEMP 98.5
--- NOTE | 2020-09-12 15:08 | PDOC.MOPN ---
Interval History: Patient comfortable, pain under control - Vital Signs Vital Signs: Vital Signs (12 hours) Temp Pulse Resp BP Pulse Ox 09/12/20 11:51 98.5 F 110 H 20 100/64 93 L 09/12/20 08:35 97.1 F L 115 H 14 101/61 96 09/12/20 08:00 93 L 09/12/20 05:15 97.1 F L 115 H 20 98/56 L 97 Weight Admit Weight 217 lb 9.54 oz Weight 217 lb 9.54 oz - Physical Exam General: No acute distress Neurological: Other - Labs Result Diagrams: 09/11/20 05:09 09/11/20 05:09 Status: lab reviewed by me A/P - Problem (1) Malignant melanoma, metastatic Current Visit: No Code(s): C79.9 - SECONDARY MALIGNANT NEOPLASM OF UNSPECIFIED SITE Status: Chronic - Plan Plan: Patient had recent progression with aggressive melanoma. Agree with hospice Patient has been accepted and await deliver of equipment to home. Will dc home at that time.
--- NOTE | 2020-09-12 15:37 | DIS ---
DATE OF ADMISSION: 09/11/2020 DATE OF DISCHARGE: 09/12/2020 FINAL DIAGNOSES: Melanoma, metastatic, with liver metastases and lung metastases; abdominal pain, right upper quadrant; acute renal failure; anasarca; anemia; hypertension; dyslipidemia. DISCHARGE MEDICATIONS: Per outpatient hospice, [facility]um[facility]. ACTIVITY: As tolerated. DIET: As tolerated. CODE STATUS: DNAR. CONSULTATIONS: The patient was seen in the hospital in consultation by Dr. Reagan Combs, Nephrology; Krystal Mason NP, Oncology; LATASHA Paulson, Palliative Care, advanced care planning. HOSPITAL COURSE: The patient was placed in the hospital with abnormal labs and anemia. He had been sent to the hospital with potassium of 6.5 and a hemoglobin of 7.3 by his oncologist. X-ray showed nonspecific bowel gas pattern. The patient had multiple episodes of emesis. He was transfused with one unit of red cells. His creatinine was 3.1, which is markedly up his baseline of 1.5. His hyperkalemia was treated with bicarb. He was treated with IV Lasix, Kayexalate, calcium carbonate, and insulin per hyperkalemia protocol. The admitting laboratory; white count 12.3, hemoglobin 7.3, and white count 132,000. INR 2.8. Comment, the patient is not on anticoagulation. Chemistries; sodium 130, potassium 6.5, CO2 of 8, BUN 122, creatinine 3.12, bilirubin 2.4, AST 534, ALT 94. COVID test was negative. The patient was seen by Dr. Combs, who recommended aggressive hydration. If potassium remains high, I would recommend dialysis. The patient was seen by Oncology who noted that despite therapy, he had a severe decline. The patient was being seen by Palliative Care at that time. The patient and his had agreed on outpatient hospice. This had been facilitated. He is being discharged. The followup will be by outpatient hospice. While the date of admission and date of discharge indicate a one overnight stay, the patient was actually seen in the emergency room on the at approximately 5 p.m. Treatment etc., was started at that time. The patient qualifies for two overnights. Job ID: [id number]
[2020-09-12 16:27] VITALS: BP 84/80
--- NOTE | 2020-09-14 07:27 | PQF ---
CLINICAL DOCUMENTATION CLARIFICATION FORM: Dear : Erum Bull Date / Time:09/14/20 Please exercise your independent, professional judgment in responding to the clarification form. Clinical indicators are provided on the bottom of this form for your review Based on your clinical judgment, can you please clarify the neurological status of this patient? Please check appropriate box(es): [ x ] Encephalopathy: Etiology: [ ] Metabolic [ ] Unspecified [ ] Other (please specify) ____toxic metabolic [ ] Transient Alteration of Awareness [ ] Other diagnosis, please specify [ ] Unable to determine In addition, please specify: Present on Admission (POA): [ x] Yes [ ] No [ ] Unable to determine Physician Signature: Date/Time: For continuity of documentation, please document condition throughout progress notes and discharge summary. Thank You. To be completed by CDI/Coding staff for physician review: Present Clinical Indicators - Signs / Symptoms / Labs Results and Location in Medical Record [x] Confused PN 09/11 [x] Neurologilca: nonfocal Consult 09/11 [x] Patient alert and oriented to person place and time ED Notes 09/11 Present Risk Factors Results and Location in Medical Record [x] Metastatic melanoma DS 09/12 [x] Liver cancer DS 09/12 [x] Lung cancer DS 09/12 [x] [place] DS 09/12 [x] HTN DS 09/12 [x] Hyperkalemia Consult 09/11 Present[x] Treatments Results and Location in Medical Record [x] Sodium Bicarboate 50 meq IV OCT 29 [x] IVF OCT 29 CDS/Electronics Repair Technician Signature: Grace Hallman Phone #: [facility] [phone] Date/Time: 09/14/20 This is a permanent part of the Medical Record [facility]
== END 2020-09-12 16:45 | disposition hospice, home (50) | DRG 843 ==
LOC: ERS 13:06 → SURG A 18:45 → INTOOBSV 18:45 → OBSVTOIN 09-11 14:44
PROVIDERS: ADMIT Internal Medicine; ATTEND Internal Medicine
DX: C79.9 Secondary malignant neoplasm of unspecified site (principal); G92 Toxic encephalopathy; N18.4 Chronic kidney disease, stage 4 (severe); R04.2 Hemoptysis; N17.9 Acute kidney failure, unspecified; E87.2 Acidosis; E87.1 Hypo-osmolality and hyponatremia; Z51.5 Encounter for palliative care; Z66 Do not resuscitate; Z20.822 Contact with and (suspected) exposure to COVID-19; D63.1 Anemia in chronic kidney disease; K21.9 Gastro-esophageal reflux disease without esophagitis; I12.9 Hypertensive chronic kidney disease with stage 1 through stage 4 chronic kidney disease, or unspecified chronic kidney disease; E78.5 Hyperlipidemia, unspecified; M10.9 Gout, unspecified; E87.5 Hyperkalemia; K59.00 Constipation, unspecified; E78.00 Pure hypercholesterolemia, unspecified; C78.7 Secondary malignant neoplasm of liver and intrahepatic bile duct; C78.00 Secondary malignant neoplasm of unspecified lung; Z79.01 Long term (current) use of anticoagulants; Z87.891 Personal history of nicotine dependence; C43.60 Malignant melanoma of unspecified upper limb, including shoulder
CPT/HCPCS: 36415; 36430; 71045; 74018; 74176; 80053; 82248; 82550; 83615; 83690; 84100; 84436; 84443; 84550; 85007; 85025; 85027; 85610; 85730; 86850; 86900; 86901; 87635; 93005; 96374; 96375; 96376; G0378; J1815; J1940; J2270; J2405; P9016; U0003